=== PATIENT | male | born 1965 | race Two or more races ===

== ENCOUNTER 2024-06-30 06:05 | Day surgery (SDC) | payer MEDICAID, SELFPAY ==
--- NOTE | 2024-06-26 07:00 | EKG_ITS ---
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
[2024-06-26 07:04] VITALS: BMI 41.1
[2024-06-26 08:55] LABS: Basophils % (Auto) 0 % (0-2.5); Eosinophils % (Auto) 0 % (0-10); Hemoglobin 15.6 g/dL (13.5-16.0); Immature Granulocytes % (Auto) 1 % (0-0); Immature Granulocytes Auto 0.06 Thou/mm3 (0.00-0.00); Lymphocytes # (Auto) 1.8 Thou/mm3 (1.0-4.8); Lymphocytes % (Auto) 27 % (10-50); Mean Corpuscular HGB Conc 32.5 g/dl (31.0-37.0); Mean Corpuscular Hemoglobin 30.5 pg (25.0-35.0); Mean Corpuscular Volume 94 fL (80-100); Monocytes # (Auto) 0.4 Thou/mm3 (0.0-0.8); Monocytes % (Auto) 6 % (0-12); Neutrophils # (Auto) 4.4 Thou/mm3 (1.8-7.7); Neutrophils % (Auto) 66 % (37-80); Nucleated Red Blood Cell % 0 /100 WBC (0); Platelet Count 246 Thou/mm3 (140-440); RDW Standard Deviation 46.5 fL (35.1-43.9); Red Blood Count 5.11 Miln/mm3 (4.50-5.90); White Blood Count 6.7 Thou/mm3 (3.8-10.6)
[2024-06-26 09:05] LABS: Alanine Aminotransferase 36 U/L (10-49); Albumin, Serum 4.4 gm/dL (3.5-5.0); Albumin/Globulin Ratio 2.1 (1.2-2.2); Alkaline Phosphatase 45 U/L (46-116); Anion Gap 9 (7-16); Aspartate Amino Transferase 18 U/L (0-34); BUN/Creatinine Ratio 16 Ratio (12-20); Bilirubin,Total 0.7 mg/dL (0.3-1.2); Blood Urea Nitrogen 14 mg/dL (9-23); Calcium 9.5 mg/dL (8.3-10.6); Calcium (Corrected) 9.5 mg/dL (8.5-10.1); Carbon Dioxide 27.4 mMol/L (20.0-31.0); Chloride 105 mMol/L (98-107); Creatinine (Component) 0.9 mg/dL (0.6-1.3); Estimated Creatinine Clearance 103.4 mL/min (>60); Globulin 2.1 gm/dL (2.3-3.5); Glucose 108 mg/dL (74-106); Osmolality,Calculated 282 (275-295); Potassium 4.4 mMol/L (3.4-5.1); Sodium 141 mMol/L (136-145); Total Protein 6.5 gm/dL (5.7-8.2); eGFR > 60 See Note
[2024-06-30] VITALS (16 sets, daily range): BP systolic 127–169; BP diastolic 80–104; PULSE 78–94; RESP 12–20; TEMP 36.4–36.6; O2SAT 92–96; BMI 41.5
--- NOTE | 2024-06-30 10:10 | SUR.PHASEI ---
pt received from OR in recovery bay 7. pt asleep but responds to voice, breathing unlabored on oxymask 8l, v/s stable. pt dressing to abd cdi. report received from Umberto RASMUSSEN and Onel VARGAS.
[2024-06-30] MEDS: fentaNYL CIT INJ 50 mCg/ML AMP 2ML IV ×3 (10:14→12:38)
--- NOTE | 2024-06-30 10:16 | ESOP_ITS ---
Date of Procedure 06/30/24 Pre Op Diagnosis Incarcerated incisional hernia Post Op Diagnosis Incarcerated incisional hernia Procedure Laparoscopic assisted repair of incarcerated incisional hernia with mesh Findings Patient was noted to have periumbilical incisional hernia with incarcerated omentum. He also had an additional incisional hernia that was above into the left of the umbilicus with incarcerated omentum Procedure Description Patient brought into the operating room in supine position. After administration of general orotracheal anesthesia, patient's abdomen prepped and draped in standard surgical manner. A 5 mm incision was made in left upper quadrant and Veress needle was inserted, pneumoperitoneum was obtained to 15 mm Hg. The Veress needle was removed and a 5 mm trocar was placed. Laparoscopic camera was inserted, under direct visualization a laparoscopic camera a 5 mm trocar placed in left lower quadrant and additional 5 mm trocar placed in right lower quadrant. The abdomen was inspected and patient was noted to have an incarcerated periumbilical incisional hernia with omentum being incarcerated within the hernia sac. The adhesions were divided with harmonic scalpel. The hernia sac was excised with harmonic scalpel and the omentum was reduced. He was noted to have an additional incisional hernia that was above into the left of the umbilicus. Similarly the hernia sac was divided with harmonic scalpel and the omentum was reduced. An approximately 3 cm incision was made above the incisional hernia that was above into the left of the umbilicus and dissection was deepened into soft tissue. The hernia sac was excised, the fascia was cleared and repaired with interrupted cgifas-ma-epant sutures using 0 Ethibond. The defect was approximately 3 cm in diameter. Patient was noted to have significant redundant skin above the umbilicus. The redundant skin was excised along with the hernia sac. The fascia was cleared and the hernia defect was approximately 4 cm in diameter. A 6 X8 elliptical shape proceed mesh was used to cover the defect. 2 tacking sutures using 0 Ethibond placed the 2 ends of the mesh and the mesh was placed inside the abdominal cavity through the hernia defect. The defect was closed with interrupted sutures using 0 Ethibond. The abdomen was once again insufflated. 2 tacking sutures of the 2 ends of the mesh were retrieved through the previously marked abdominal wall site. Sutures were tightened and the mesh was further secured into anterior abdominal wall with secure strap tacking device. The mesh was covering both defects with at least 2 cm circumferential margin. Hemostasis was adequate and satisfactory. Instruments and trocars removed, pneumoperitoneum was evacuated and the incisions closed with hernan. Instruments, needles and sponge counts were reported to be correct ?2 patient tolerated the procedure well. Patient was extubated, breathing spontaneously and without difficulty and was transferred to postanesthesia care in stable condition. Anesthesia GETA and local Pathology / specimen Other (Hernia sac) Estimated Blood Loss 10 Condition Stable Disposition PACU Surgeon Sariah Hastings MD Surgical Staff Operation Date: 06/30/24 08:30 Case Staff CENTRIFUGAL WAX MOLDER: Onel Verdugo RN First Assistant: Sarah Mendez
[2024-06-30] MEDS: ALBUTEROL/IPRATROPIUM (Duoneb) RT SOL 3 ML NEBU INH (10:36)
--- NOTE | 2024-06-30 11:56 | SUR.PHASEII ---
pt able to tolerate oral fluids without difficulty swallowing or nausea/vomiting.
--- NOTE | 2024-06-30 12:09 | SUR.PHASEII ---
1209: pt sitting in bed, VS stable, dressing to abdomen clean, dry, and intact with abdominal binder in place, report from Jorge RASMUSSEN
--- NOTE | 2024-06-30 12:30 | SUR.PHASEII ---
pt up to ambulate to help with passing gas, pt able to ambulate with assistance
--- NOTE | 2024-06-30 12:44 | SUR.PHASEII ---
pt resting with eyes closed, breathing unlabored, dressing to abdomen clean, dry, and intact with abdominal binder in place, report to Jorge RASMUSSEN
--- NOTE | 2024-06-30 14:00 | SUR.PHASEII ---
pt awake and alert, breathing unlabored on room air. v/s stable. pt dressing to abd cdi. pt able to ambulate to wheelchair with steady gait. d/c instructions given with friend in room using bus and sys integration senior manager Jhonatan Ordoñez, all questions answered. pt d/c via wheelchair with all belongings.
== END 2024-06-30 14:00 | disposition home or self-care (01) ==
PROVIDERS: Anesthesiology; PCP Family Medicine; Referring Provider Surgery; Visit Provider Surgery
PROC: 0WQF4ZZ Repair Abdominal Wall, Percutaneous Endoscopic Approach (ICD-10-PCS; CPT 49594; principal; 2024-06-30 08:30)
DX: K43.0 Incisional hernia with obstruction, without gangrene (principal); Z01.810 Encounter for preprocedural cardiovascular examination
CPT/HCPCS: 49594; 36415; 80053; 85025; 93005; A4217; A4649; A9270; C1781; J0131; J0690; J1100; J2250; J2371; J2405; J2704; J3010; J3490

== ENCOUNTER 2024-08-06 12:40 | Inpatient (IN) | payer MEDICAID, SELFPAY ==
[2024-08-06] VITALS (7 sets, daily range): BP systolic 136–175; BP diastolic 93–128; PULSE 66–80; RESP 17–20; TEMP 36.1–36.9; O2SAT 95–98; BMI 41.5
--- NOTE | 2024-08-06 12:56 | EKG_ITS ---
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
--- NOTE | 2024-08-06 12:57 | XR_ITS ---
Examination: CT abdomen with intravenous contrast CT pelvis with intravenous contrast 2-D coronal reconstructions 2-D sagittal reconstructions Date and time of exam:August 06, 2024 1555 hours Comparison April 03, 2023 INDICATIONS: Lower abdominal pain and distention today. CTDI: vol (mGy) 15.2 DLP: (mGycm) 984 Technique: Multiple axial sections of the abdomen and pelvis have been obtained. 64 slice high-resolution scanner used. 3 mm axial sections have been obtained, post intravenous injection 60 cc [id number] 2-D sagittal, coronal reconstructions obtained. Low dose protocols were performed. One or more of the following dose reduction techniques were used; automated exposure control, adjustment of the mA and/or KV according to patient size, use of iterative reconstruction technique. Findings: 8mm right lobe liver cyst Spleen is not enlarged No gallstones Fluid distended stomach No pancreatic or adrenal mass No renal or ureteral calculi Multiple fluid distended small bowel loops in the lower abdomen with localized weakening of the anterior abdominal wall No incarcerated bowel in the hernia defect Colonic diverticulosis, no diverticulitis Urinary bladder intact 4.2 cm transverse dimension prostate Significant osteopenia with moderate to advanced diffuse lumbar degenerative disc disease IMPRESSION: Small bowel obstruction pattern, consider Gastrografin small bowel series follow-up
--- NOTE | 2024-08-06 12:59 | EDNOTE_ITS ---
ED Abdominal Pain RME/HPI General Chief Complaint: Abdominal Pain Stated complaint: ABD PAIN S/P HERNIA REPAIR X1MO Time seen by provider: 08/06/24 12:51 Arrival date/time: 08/06/24 12:40 RME / HPI RME / HPI narrative: 58-year-old male patient with significant history of hypertension, recent hernia repair about a month ago, came in for evaluation regarding sudden onset of abdominal pain. Onset of symptoms since early this morning as sudden onset of abdominal pain, abdominal distention and vomiting x 2. Patient also complained of not feeling well. He had a small bowel movement this morning. Patient denies any fever. In the triage patient was noted to have elevated blood pressure also. Denies any chest pain. Hernia repair was done by Dr. Hastings. Related Data Home Medications ?Medication ?Instructions ?Recorded ?Confirmed atorvastatin 20 mg tablet 20 mg PO DAILY 06/26/2401/15 lisinopril 20 mg tablet 20 mg PO DAILY 06/26/2401/15 semaglutide 2 mg/dose (8 mg/3 mL) 2 mg subcut QWEEK 06/30/24 subcutaneous pen injector (Ozempic) Previous Rx's ?Medication ?Instructions ?Recorded docusate sodium 100 mg capsule 100 mg PO BID #40 caps 06/30/24 (Colace) hydrocodone 5 mg-acetaminophen 325 1 tab PO Q6H PRN pa in (scale score 06/30/24 mg tablet 7-10) #20 tabs ibuprofen 600 mg tablet 600 mg PO Q8H PRN pain (scal e 06/30/24 score 4-6) #15 tabs Allergies Allergy/AdvReac Type Severity Reaction Status Date / Time No Known Allergies Allergy Verified 08/06/24 12:43 Review of Systems Review of Systems Narrative Review of Systems: Review of system reviewed and within normal limits except mentioned in HPI ED Exam Narrative Physical exam: VITAL SIGNS: Reviewed. GENERAL APPEARANCE: Alert and interactive, follows commands, no acute distress, HEAD AND FACE: Non-traumatic. ENT: PERRL, pink conjunctivitis, eyelid no trauma, Mucous membrane moist. NECK: Supple, nontender, no nuchal rigidity. CHEST: No tenderness, no crepitus, no paradoxical movement, no retractions. LUNGS: Clear, well ventilated, symmetric, no rales, no wheezing, no ronchi, no stridor, good breath sounds bilaterally. HEART: Regular rate, regular rhythm, no murmur, no gallops. ABDOMEN: Hard, hypoactive bowel sounds, nondistended, no guarding, diffuse tenderness, no rebound, no masses, RECTAL: Deferred. GENITAL: Deferred. NEUROLOGICAL: Gross motor function intact sensory function intact, Appropriate for age. MUSCULOSKELETAL: low back nontender, full range of motion. EXTREMITIES: Nontender, full range of motion. SKIN: Color pink, dry, no rash, no lacerations, no abrasions, no contusions. LYMPHATICS: Deferred. Course Quality Measures none Orders Category Date Time Status COVID-19 Screening Questionnaire NOW Care 08/06/24 19:[address] Screening NOW Care 08/06/24 12:58 Active Decision to Admit X1 Care 08/06/24 19:19 Active EKG (ED ONLY) *Do not use* NOW Care 08/06/24 12:56 Completed Insert NG / OG tube NOW Care 08/06/24 17:51 Active NG / OG Tube to LIS NOW Care 08/06/24 17:51 Completed Consult to General Surgery Stat Cons 08/06/24 17:[address] abdomen pelvis w con Stat Exams 08/06/24 12:57 Completed EKG (ED Only) Stat Exams 08/06/24 12:56 Draft XR chest 1V post procedure Stat Exams 08/06/24 18:17 Completed Blood Culture (Lab) Stat Lab 08/06/24 18:58 Received CBC Stat Lab 08/06/24 13:14 Completed Comprehensive Metabolic Panel Stat Lab 08/06/24 13:14 Completed Lipase Stat Lab 08/06/24 13:14 Completed Partial Thromboplastin Time Stat Lab 08/06/24 13:14 Completed Prothrombin Time with INR Stat Lab 08/06/24 13:14 Completed UA, C/S IF [Urinalysis, C/S if Indicated] Stat Lab 08/06/24 13:53 Completed Cefoxitin [Mefoxin] 2 gm Med 08/06/24 17:54 Discontinued Sodium Chloride 0.9% (P) [Ns 0.9% (P)] 50 ml IV X1 HYDROmorphone INJ [Dilaudid Inj] Med 08/06/24 15:07 Discontinued 1 mg IVP X1 ONE HYDROmorphone INJ [Dilaudid Inj] Med 08/06/24 18:17 Discontinued 1 mg IVP X1 ONE Morphine Inj Med 08/06/24 12:57 Discontinued 4 mg IVP X1 ONE Ondansetron Inj [Zofran Inj] Med 08/06/24 12:57 Discontinued 4 mg IV X1 ONE Sodium Chloride 0.9% 1000 ml [Ns] 1,000 ml Med 08/06/24 17:52 Active IV 125 mls/hr hydrALAZINE INJ [Apresoline Inj] Med 08/06/24 12:58 Discontinued 1 mg IV X1 ONE Vital Signs Vital signs: Vital Signs Temperature 98.2 F 08/06/24 12:53 Pulse Rate 68 08/06/24 12:53 Respiratory Rate 20 08/06/24 12:53 Blood Pressure 169/127 H 08/06/24 12:53 Pulse Oximetry (%) 98 08/06/24 12:53 Oxygen Delivery Method Room Air 08/06/24 12:53 Abdominal Pain MDM MDM Narrative MDM Narrative:: 58-year-old male patient with significant history of hypertension, recent hernia repair about a month ago, came in for evaluation regarding sudden onset of abdominal pain. Onset of symptoms since early this morning as sudden onset of abdominal pain, abdominal distention and vomiting x 2. Patient also complained of not feeling well. He had a small bowel movement this morning. Patient denies any fever. In the triage patient was noted to have elevated blood pressure also. Denies any chest pain. Hernia repair was done by Dr. Hastings. Laboratory workup is significant for leukocytosis of 12.9 the rest of the labs unremarkable. Urinalysis no UTI. Chest x-ray came back unremarkable. EKG showed sinus rhythm ventricular rate of 74 bpm, no ST segment elevation depression noted. CT scan of the abdomen and pelvis showed small bowel obstruction. I consulted Dr. Hastings who told me to asked the hospitalist to call him once small bowel series showed obstruction. NG tube was placed and attached to low intermittent suction. Patient verbalized significant improvement of symptoms. Section fluid noted to be more than 500 cc. Patient was given IV fluids, morphine and Dilaudid and Zofran Patient data External records reviewed:: None Clinical information provided by:: none Social determinants that could affect healthcare access:: none Patient has the following chronic illnesses:: Hypertension How is presenting disease/condition affected by chronic disease/condition?: uneffected by Evaluation data The following diagnostics were reviewed and interpreted by me:: lab results, radiology exam(s) and EKG tracing(s) Lab and/or radiology exams considered but not ordered:: None Interpretation Summary: See results in [facility] Medications / Prescriptions Medications or Prescriptions considered but not ordered:: None Medication administrations:: Medication Administration History Sodium Chloride (Ns) 1,000 mls @ 125 mls/hr IV .Q8H ONE Stop: 08/07/24 01:51 Last Admin: 08/06/24 18:56 Dose: 125 mls/hr Documented By: BRYSON Discontinued Medications Hydralazine HCl (Hydralazine Inj 20 Mg/Ml Vial) 1 mg IV X1 ONE Stop: 08/06/24 12:59 Last Admin: 08/06/24 15:16 Dose: Not Given Documented By: BRYSON Non-Admin Reason: Cancelled by Provider Hydromorphone HCl (Hydromorphone Inj 2 Mg/Ml Vial) 1 mg IVP X1 ONE Stop: 08/06/24 15:08 Last Admin: 08/06/24 15:17 Dose: 1 mg Documented By: BRYSON Hydromorphone HCl (Hydromorphone Inj 2 Mg/Ml Vial) 1 mg IVP X1 ONE Stop: 08/06/24 18:18 Last Admin: 08/06/24 18:23 Dose: 1 mg Documented By: BRYSON Cefoxitin Sodium 2 gm/ Sodium (Chloride) 50 mls @ 100 mls/hr IV X1 ONE Stop: 08/06/24 18:23 Last Admin: 08/06/24 18:56 Dose: 100 mls/hr Documented By: Morphine Sulfate (Morphine Sulf Inj 10 Mg/Ml Vial) 4 mg IVP X1 ONE Stop: 08/06/24 12:58 Last Admin: 08/06/24 14:26 Dose: 4 mg Documented By: Ondansetron HCl (Ondansetron Inj 2 Mg/Ml Inj 2 Ml) 4 mg IV X1 ONE; Protocol Stop: 08/06/24 12:58 Last Admin: 08/06/24 14:26 Dose: 4 mg Documented By: Morphine Zofran cefoxitin, IV fluids, Dilaudid Consultations Consultation(s) initiated? (list below): Yes Consultation #1 (Physician, Specialty, Details): Spoke with Dr. Hastings, thank you Dr. Hastings Diagnosis Differential diagnosis abdominal pain: abdominal pain, constipation and small bowel obstruction Most likely diagnosis given after review of the tests above:: Small bowel obstruction Admission Indicated Admission indicated?: indicated Admission Request Was there a request for admission?: Yes Admission Attestation Admission request attestation: Discussed case with [Dr. Glover] from Hospitalist service regarding admission. Discussed patients ED course, exam findings, labs, and radiology results. The Hospitalist [agrees] to accept the patient for admission. Disposition Plan Disposition Plan: Admit Discharge Plan Plan Patient Disposition: Admit Acute Care w/in Hospital Prescriptions/Referrals Prescriptions/Med Rec: No Action lisinopril 20 mg tablet 20 mg PO DAILY Patient Comments: TOME ELSIE TABLETA TODOS LOS D Ozempic 2 mg/dose (8 mg/3 mL) pen injector 2 mg SUBCUT QWEEK Patient Comments: INJECT 2MG SUBCUTANEOUS WEEKLY 30 DAYS atorvastatin 20 mg tablet 20 mg PO DAILY Patient Comments: TOME 1 TABLETA POR V A ORAL TODOS LOS D ibuprofen 600 mg tablet 600 mg PO Q8H PRN (Reason: pain (scale score 4-6)) Qty: 15 0RF docusate sodium [Colace] 100 mg capsule 100 mg PO BID Qty: 40 0RF hydrocodone-acetaminophen 5-325 mg tablet 1 tab PO Q6H MDD 4 PRN (Reason: pain (scale score 7-10)) Qty: 20 0RF Referrals: Juan Alberto Castellanos PA-C [Primary Care Provider] - In 1 week Problem List Clinical Impression: Small bowel obstruction Patient/Caregiver Discharge Instructions Print Language: [place] Stand Alone Forms: [place] Award Info., Patient Portal Info Letter
[2024-08-06 13:48] LABS: Basophils # (Auto) 0.1 Thou/mm3 (0.0-0.2); Basophils % (Auto) 1 % (0-2.5); Eosinophils # (Auto) 0.1 Thou/mm3 (0.0-0.5); Eosinophils % (Auto) 1 % (0-10); Hematocrit 49.8 % (41.0-53.0); Hemoglobin 16.6 g/dL (13.5-16.0); Immature Granulocytes % (Auto) 0 % (0-0); Immature Granulocytes Auto 0.04 Thou/mm3 (0.00-0.00); Lymphocytes # (Auto) 3.4 Thou/mm3 (1.0-4.8); Lymphocytes % (Auto) 27 % (10-50); Mean Corpuscular HGB Conc 33.3 g/dl (31.0-37.0); Mean Corpuscular Hemoglobin 30.1 pg (25.0-35.0); Mean Corpuscular Volume 90 fL (80-100); Monocytes # (Auto) 0.8 Thou/mm3 (0.0-0.8); Monocytes % (Auto) 6 % (0-12); Neutrophils # (Auto) 8.5 Thou/mm3 (1.8-7.7); Neutrophils % (Auto) 66 % (37-80); Nucleated Red Blood Cell % 0 /100 WBC (0); Platelet Count 234 Thou/mm3 (140-440); RDW Standard Deviation 44.9 fL (35.1-43.9); Red Blood Count 5.51 Miln/mm3 (4.50-5.90); White Blood Count 12.9 Thou/mm3 (3.8-10.6)
[2024-08-06 14:03] LABS: Collection Type, Urine Clean Catch
[2024-08-06 14:03] LABS: Partial Thromboplastin Time 25.1 Seconds (22.0-36.0); Prothrombin Time 10.6 Seconds (9.0-12.2)
[2024-08-06 14:06] LABS: Alanine Aminotransferase 31 U/L (10-49); Albumin, Serum 4.5 gm/dL (3.5-5.0); Alkaline Phosphatase 58 U/L (46-116); Anion Gap 8 (7-16); Aspartate Amino Transferase 20 U/L (0-34); BUN/Creatinine Ratio 20 Ratio (12-20); Bilirubin,Total 0.6 mg/dL (0.3-1.2); Blood Urea Nitrogen 14 mg/dL (9-23); Calcium 9.8 mg/dL (8.3-10.6); Calcium (Corrected) 9.8 mg/dL (8.5-10.1); Carbon Dioxide 26.7 mMol/L (20.0-31.0); Chloride 106 mMol/L (98-107); Creatinine (Component) 0.7 mg/dL (0.6-1.3); Estimated Creatinine Clearance 133.8 mL/min (>60); Globulin 2.2 gm/dL (2.3-3.5); Glucose 101 mg/dL (74-106); Lipase 30 U/L (12-53); Osmolality,Calculated 281 (275-295); Sodium 141 mMol/L (136-145); Total Protein 6.7 gm/dL (5.7-8.2); eGFR > 60 See Note
[2024-08-06 14:25] LABS: Bilirubin,Urine Negative (Negative); Blood,Urine Negative (Negative); Clarity,Urine Clear (Clear/Hazy); Color,Urine Yellow (Lt Yel-Yel); Culture Indicated,Urine Not Indicated; Glucose, Urine Negative (Negative); Ketones,Urine Negative (Negative); Leukocyte Esterase,Urine Positive (Negative); Nitrite,Urine Negative (Negative); PH,Urine 7.5 (5.0-7.0); Protein,Urine Trace (Neg - Trace); RBC,Urine 1 /hpf (0-3); Specific Gravity,Urine 1.028 (1.001-1.035); Squamous Epithelial Cell,Urine 2 /hpf (0-5); Urobilinogen,Urine Negative mg/dL (0.0-1.0); WBC,Urine 3 /hpf (0-5)
[2024-08-06] MEDS: MORPHINE SULF INJ 10 MG/ML VIAL 4 MG IVP (14:26)
[2024-08-06] MEDS: ONDANSETRON INJ 2 MG/ML INJ 2 ML 4 MG IV (14:26)
[2024-08-06] MEDS: HYDROmorphone INJ 2 MG/ML VIAL 1 MG IVP ×2 (15:17→18:23)
--- NOTE | 2024-08-06 18:17 | XR_ITS ---
Examination: AP chest single view TECHNIQUE: AP portable sitting chest single view Exam date and time: August 06, 2024 1828 hours INDICATIONS: Post orogastric tube placement FINDINGS: Orogastric tube coiled in the stomach satisfactory position Air distended stomach No free air IMPRESSION: Orogastric tube in stomach satisfactory position
[2024-08-06] MEDS: SODIUM CHLORIDE 0.9% 1000 ML 1,000 ML 125 ML IV (18:56)
[2024-08-06] MEDS: CEFOXITIN 2 GM in SODIUM CHLORIDE 0.9% (P) 50 ML IV (18:56)
--- NOTE | 2024-08-06 20:54 | ESHP_ITS ---
Documentation for date of: 08/06/24 [facility] History of Present Illness Chief complaint: Abdominal pain History of present illness: Mr. Ann is a 58-year-old Malian-speaking male with past medical history of umbilical hernia status post repair, hypertension and hyperlipidemia who presented to [facility] on 08/06/2024 from home with a chief complaint of abdominal pain. Patient reported sudden onset abdominal pain, sharp with abdominal distention which started about 24 hours ago, patient also reported 2 episodes of emesis, nonbloody. He complained that he does not feel well. Patient does report having small bowel movement earlier this morning. Patient reported that he had a hernia repair done by Dr. Hastings recently. On workup in ED patient CT abdomen pelvis showed small bowel obstruction, general surgery was consulted recommended NG tube to low intermittent suctioning and small bowel series in morning. ED Course: ED Vitals: On presentation in ED BP 169/127, P 68, respiratory rate 20, temp 98.2, O2 sat 98 on room air ED Labs: On presentation in ED WBC 12.9, hemoglobin 16.6, neutrophil 8.5, globulin 2.2. UA significant for trace protein, positive leukocyte esterase none bacteria. ED Imaging: CT abdomen pelvis in ED shows small bowel obstruction pattern, consider Gastrografin small bowel series follow-up chest x-ray post NG tube placement significant for orogastric tube in stomach satisfactory position. EKG shows sinus rhythm, QTc 416 ED Treatment:Patient was given morphine 4 mg x 1, Zofran 4 mg x 1, hydromorphone 1 mg x 2, cefoxitin x 1 in ED and was started on sodium chloride 125 cc/h Review of Systems Review of Systems Narrative Review of Systems: ROS: -CONSTITUTIONAL: Denies weight loss, fever and chills. -HEENT: Denies changes in vision and hearing. -RESPIRATORY: Denies SOB and cough. -CV: Denies palpitations and Chest Pain. -GI: Positive for abdominal pain, nausea, vomiting, denies constipation and diarrhea. -: Denies dysuria and urinary frequency. -MSK: Denies myalgia and joint pain. -SKIN: Denies rash and pruritus. -NEUROLOGICAL: Denies headache and syncope. -PSYCHIATRIC: Denies recent changes in mood. Denies anxiety and depression. Past Medical History Past Medical History Comments PMH COMMENT: PMH: Positive for umbilical hernia status post repair, hypertension and hyperlipidemia PSHx: Exploratory laparotomy, closure of the perforation the sigmoid colon, incidental appendectomy (2021) Laparoscopic assisted repair of incarcerated incisional hernia with mesh (06/30/2024) Allergies: No known allergies Social history: -Smoking: Denies -Alcohol Use: Denies -Illicit Drug Use: Denies Family History: Denies pertinent family history Exam Vital Signs Temp Pulse Resp BP Pulse Ox O2 Del Method 98.4 F 80 17 136/93 H 97 Room Air 08/06/24 16:21 08/06/24 18:44 08/06/24 18:44 08/06/24 18:44 08/06/24 18:44 08/06/24 18:44 Narrative Exam Physical Exam General: Awake and in no acute distress. Conversational and non-toxic appearing. HEENT: Normocephalic, atraumatic, mucous membranes moist. NG tube noted. Heart: Regular rate and rhythm, no murmurs. Lungs: Clear to auscultation with no wheezing or crackles. Abdomen: Hard, distended, mild diffuse tenderness, positive bowel sounds. Neurologic: Alert and oriented x3, no gross neurological deficit, and patient able to move all 4 extremities. Extremities: No edema. Skin: No rash or ecchymoses. Results: Labs 08/06/24 13:14 08/06/24 13:14 Labs: Short CBC 08/06/24 Range/Units 13:14 WBC 12.9 H (3.8-10.6) Thou/mm3 Hgb 16.6 H (13.5-16.0) g/dL Hct 49.8 (41.0-53.0) % Plt Count 234 (140-440) Thou/mm3 BMP 08/06/24 13:14 Sodium 141 Potassium 4.0 Chloride 106 Carbon Dioxide 26.7 BUN 14 Creatinine 0.7 Glucose 101 Calcium 9.8 Liver Function 08/06/24 Range/Units 13:14 Total Bilirubin 0.6 (0.3-1.2) mg/dL AST 20 (0-34) U/L ALT 31 (10-49) U/L Alkaline Phosphatase 58 (46-116) U/L Albumin 4.5 (3.5-5.0) gm/dL Urine 08/06/24 Range/Units 13:53 Urine Color Yellow (Lt Yel-Yel) Urine Clarity Clear (Clear/Hazy) Urine pH 7.5 H (5.0-7.0) Ur Specific [place] 1.028 (1.001-1.035) Urine Protein Trace (Neg - Trace) Urine Glucose (UA) Negative (Negative) Quality Measures Quality Measures none Medications Home Medications and Allergies Home Medications ?Medication ?Instructions ?Recorded ?Confirmed ?Type atorvastatin 20 mg tablet 20 mg PO DAILY 06/26/2401/15 History lisinopril 20 mg tablet 20 mg PO DAILY 06/26/2401/15 History semaglutide 2 mg/dose (8 mg/3 mL) 2 mg subcut QWEEK 06/30/24 History subcutaneous pen injector (Ozempic) Allergies Allergy/AdvReac Type Severity Reaction Status Date / Time No Known Allergies Allergy Verified 08/06/24 12:43 Visit Medications Acetaminophen (Acetaminophen 325 Mg Tablet) 650 mg PO Q6H PRN PRN Reason: Pain 1-3 (Mild & Fever >101.3 Stop: 09/05/24 20:44 Heparin Sodium (Porcine) (Heparin Sod Inj 5000 Unit/Ml Vial) 5,000 unit SC Q12H PAPI Stop: 08/21/24 08:59 Hydralazine HCl (Hydralazine Inj 20 Mg/Ml Vial) 10 mg IVP Q6H PRN PRN Reason: SBP > 180, DBP > 100 Stop: 09/05/24 20:49 Sodium Chloride (Ns) 1,000 mls @ 125 mls/hr IV .Q8H ONE Stop: 08/07/24 01:51 Last Admin: 08/06/24 18:56 Dose: 125 mls/hr Ondansetron HCl (Ondansetron Inj 2 Mg/Ml Inj 2 Ml) 4 mg IV Q6H PRN; Protocol PRN Reason: NAUSEA OR VOMITING Stop: 09/05/24 20:44 Discontinued Medications Hydralazine HCl (Hydralazine Inj 20 Mg/Ml Vial) 1 mg IV X1 ONE Stop: 08/06/24 12:59 Last Admin: 08/06/24 15:16 Dose: Not Given Hydralazine HCl (Hydralazine Inj 20 Mg/Ml Vial) 10 mg IVP Q6H PRN PRN Reason: SBP > 180, DBP > 100 Stop: 09/05/24 20:49 Hydromorphone HCl (Hydromorphone Inj 2 Mg/Ml Vial) 1 mg IVP X1 ONE Stop: 08/06/24 15:08 Last Admin: 08/06/24 15:17 Dose: 1 mg Hydromorphone HCl (Hydromorphone Inj 2 Mg/Ml Vial) 1 mg IVP X1 ONE Stop: 08/06/24 18:18 Last Admin: 08/06/24 18:23 Dose: 1 mg Cefoxitin Sodium 2 gm/ Sodium (Chloride) 50 mls @ 100 mls/hr IV X1 ONE Stop: 08/06/24 18:23 Last Admin: 08/06/24 18:56 Dose: 100 mls/hr Morphine Sulfate (Morphine Sulf Inj 10 Mg/Ml Vial) 4 mg IVP X1 ONE Stop: 08/06/24 12:58 Last Admin: 08/06/24 14:26 Dose: 4 mg Ondansetron HCl (Ondansetron Inj 2 Mg/Ml Inj 2 Ml) 4 mg IV X1 ONE; Protocol Stop: 08/06/24 12:58 Last Admin: 08/06/24 14:26 Dose: 4 mg Assessment & Plan Plan Assessment and Plan: Summary: Mr. Ann is a 58-year-old Malian-speaking male with past medical history of umbilical hernia status post repair, hypertension and hyperlipidemia who presented to [facility] on 08/06/2024 from home with a chief complaint of abdominal pain. Patient admitted for small bowel obstruction management. #Small bowel obstruction #Status post Laparoscopic assisted repair of incarcerated incisional hernia with mesh (06/30/2024) Patient came in for distended abdomen, abdominal pain, nausea and vomiting. Patient had recent surgery with Dr. Hastings on June 30. CT abdomen pelvis in ED shows suspected SBO. NG tube was placed in ED, about 500 cc suctioned out. General surgery was consulted in ED. Plan: -NG tube to low-intermittent suctioning -Zofran as needed for nausea/vomiting -IV maintenance fluids -Small bowel series with Gastrografin in a.m. -General Surgery consulted, appreciate recommendations #Leukocytosis, reactive WBC count 12.9 on admission, patient was given cefoxitin in ED, lactate normal. -Will continue to monitor for now #Hypertension #Hyperlipidemia Pending med rec -Hydralazine as needed DVT prophylaxis: Heparin every 12 hours GI prophylaxis: IV Protonix daily Diet: N.p.o. Lines: Peripheral IV Code status: Full code Case discussed with Attending Dr. Frank. Sourav Glover PGY1 Internal medicine Disclaimer: This note was dictated by speech recognition. Minor errors in solar applications development engineer may be present due to voice recognition software. Attending Provider Attestation/Addendum 58-year-old Malian-speaking male patient who had recent hernia surgery was seen in the ER complaining of severe worsening abdominal pain associated with abdominal distention, nausea and vomiting Patient was diagnosed with small bowel obstruction. NG tube was inserted. The patient continues to have pain in the ER. Check magnesium and phosphorus level. Continue NG tube, continue IV fluids, correct electrolyte abnormalities. Surgical evaluation requested.
--- NOTE | 2024-08-06 22:27 | PC.NURSE ---
Upon arriving to unit. Patient was brought to the unit via gurney from ER. Patient mentioned to nurse (Franklin) that he needs to use the restroom to urinate. Was told that we will give him a urnial. Patient was fine with the urinal. Patient then mentioned to nurse that he can walk and if he could use the toilet. Patient's nurse and MARKETING SUMMER INTERN monitored patient has he walked to the restroom with his cane. Patient showed no signs of distress or any mentioning of pain when ambulating to the restroom from bed. Nurse observed a steady gate. Patient also had a NG tube inserted from the ER.
[2024-08-07] VITALS (9 sets, daily range): BP systolic 98–176; BP diastolic 54–106; PULSE 71–113; RESP 16–95; TEMP 36.1–36.6; O2SAT 91–95
--- NOTE | 2024-08-07 | XR_ITS ---
Examination: Abdomen AP single view Technique: AP portable supine abdomen, single view Exam date and time: August 07, 2024 1828 hrs. Indications: 18 hour film post post small bowel series today, abdominal pain and distention Findings: Contrast is diluted into the bowel There does appear to be mild contrast in the colon Impression: Likely incomplete small bowel obstruction Recommend follow-up films 10:00 PM and 7:00 AM tomorrow
--- NOTE | 2024-08-07 | XR_ITS ---
Examination: Abdomen AP single view Technique: AP portable supine abdomen, single view Exam date and time: August 07, 2024 2159 hrs. Indications ;Abdominal pain and distention this week. Findings: Findings: Contrast is present in the colon on this study Impression: Findings most consistent with incomplete small bowel obstruction One additional follow-up abdomen film at 7:00 AM recommended
--- NOTE | 2024-08-07 | XR_ITS ---
Examination: Abdomen AP single view Technique: AP portable supine abdomen, single view Exam date and time: August 07, 2024 1432 hours INDICATIONS: Abdominal distention this week, forearm delayed film post small bowel series FINDINGS: Contrast in dilated small bowel loops Motion of the contrast remains in the stomach IMPRESSION: Mildly dilated small bowel loops Multiple additional delayed films will be obtained
--- NOTE | 2024-08-07 | XR_ITS ---
Examination: Abdomen AP single view Technique: AP portable supine abdomen, single view Exam date and time: August 07, 2024 1627 hours INDICATIONS: Abdominal distention and pain this week, 6 hour delayed film post small bowel series today. FINDINGS: Contrast in small bowel loops IMPRESSION: Small bowel obstruction pattern Multiple additional delayed films will be obtained
[2024-08-07] MEDS: HYDROmorphone INJ 2 MG/ML VIAL 0.25 MG IVP ×2 (01:29→08:52)
[2024-08-07] MEDS: ONDANSETRON INJ 2 MG/ML INJ 2 ML 4 MG IV ×3 (01:39→14:09)
--- NOTE | 2024-08-07 01:40 | PC.NURSE ---
Noticed patient's abdomen increased in size and contacted MD. Dr. Machuca. On assessment, nurse noticed that the patient's lower abdomen region felt more firm that it did at time of admission. Patient was given Dilaudid for pain and zofran for nausea.
--- NOTE | 2024-08-07 02:02 | XR_ITS ---
Examination: AP chest single view Technique: AP portable upright chest single view Exam date and time: August 07, 2024 0211 hrs. Indications: Vomiting today. Findings: Orogastric tube in the stomach although proximal Mild enlargement cardiac contour Normal heart size Impression: Advance the orogastric tube 4 cm
--- NOTE | 2024-08-07 02:02 | XR_ITS ---
Examination: Abdomen AP single view Technique: AP portable supine abdomen, single view Exam date and time: August 07, 2024 0212 hours INDICATIONS: Onset abdominal pain today. FINDINGS: Moderate to large amounts of stool throughout the colon No obstruction No free air IMPRESSION: Moderate to large amounts of stool throughout the colon
[2024-08-07] MEDS: RINGERS LACTATED 1000 ML 1,000 ML 70 ML IV (05:18)
[2024-08-07 05:53] LABS: Basophils % (Auto) 0 % (0-2.5); Eosinophils # (Auto) 0.2 Thou/mm3 (0.0-0.5); Eosinophils % (Auto) 1 % (0-10); Hematocrit 50.1 % (41.0-53.0); Hemoglobin 16.6 g/dL (13.5-16.0); Immature Granulocytes % (Auto) 0 % (0-0); Immature Granulocytes Auto 0.05 Thou/mm3 (0.00-0.00); Lymphocytes # (Auto) 1.9 Thou/mm3 (1.0-4.8); Lymphocytes % (Auto) 17 % (10-50); Mean Corpuscular HGB Conc 33.1 g/dl (31.0-37.0); Mean Corpuscular Hemoglobin 30.6 pg (25.0-35.0); Mean Corpuscular Volume 92 fL (80-100); Monocytes # (Auto) 0.9 Thou/mm3 (0.0-0.8); Monocytes % (Auto) 8 % (0-12); Neutrophils # (Auto) 8.2 Thou/mm3 (1.8-7.7); Neutrophils % (Auto) 73 % (37-80); Nucleated Red Blood Cell % 0 /100 WBC (0); Platelet Count 238 Thou/mm3 (140-440); RDW Standard Deviation 46.5 fL (35.1-43.9); Red Blood Count 5.43 Miln/mm3 (4.50-5.90); White Blood Count 11.2 Thou/mm3 (3.8-10.6)
--- NOTE | 2024-08-07 06:00 | XR_ITS ---
Examination: Small bowel series with 5 abdomen films Exam date and time: August 07, 2024 1022 hours INDICATIONS: Abdominal pain and distention this week, dilated small bowel loops on CT abdomen pelvis August 06, 2024 TECHNIQUE AND FINDINGS: Fur Stretcher AP supine abdomen single view Patient received 120 cc Gastrografin with immediate, 30 minute, 1 hour, TR films obtained Multiple contrast distended small bowel loops noted IMPRESSION: Multiple contrast distended small bowel loops noted Follow-up films will be obtained
[2024-08-07 06:40] LABS: Alanine Aminotransferase 15 U/L (10-49); Albumin, Serum 4.1 gm/dL (3.5-5.0); Albumin/Globulin Ratio 2.1 (1.2-2.2); Alkaline Phosphatase 55 U/L (46-116); Anion Gap 7 (7-16); Aspartate Amino Transferase 19 U/L (0-34); BUN/Creatinine Ratio 16 Ratio (12-20); Bilirubin,Total 0.9 mg/dL (0.3-1.2); Blood Urea Nitrogen 14 mg/dL (9-23); Calcium 9.4 mg/dL (8.3-10.6); Calcium (Corrected) 9.4 mg/dL (8.5-10.1); Carbon Dioxide 26.8 mMol/L (20.0-31.0); Cardiac Risk Estimate 3.3 RATIO (4.0-6.7); Chloride 104 mMol/L (98-107); Cholesterol 147 mg/dL (132-200); Creatinine (Component) 0.9 mg/dL (0.6-1.3); Estimated Creatinine Clearance 104.1 mL/min (>60); Free T4 (Free Thyroxine) 1.57 ng/dL (0.89-1.76); Glucose 94 mg/dL (74-106); HDL Cholesterol 44 mg/dL (40-60); LDL Cholesterol,Calculated 75 mg/dL (0-130); Osmolality,Calculated 276 (275-295); Phosphorous 4.5 mg/dL (2.4-5.1); Potassium 4.1 mMol/L (3.4-5.1); Sodium 138 mMol/L (136-145); Thyroid Stimulating Hormone 6.91 uIU/mL (0.55-4.78); Total Protein 6.1 gm/dL (5.7-8.2); Triglycerides 141 mg/dL (30-150); eGFR > 60 See Note
[2024-08-07 06:49] LABS: Glucose Estimated Average 120 mg/dL (80-131); Hemoglobin A1C 5.8 % Hgb (4.8-6.0)
[2024-08-07] MEDS: HEPARIN SOD INJ 5000 UNIT/ML VIAL SC ×2 (08:53→21:38)
--- NOTE | 2024-08-07 10:31 | PC.SS ---
Patient is a Maltese speaking male. asl interpreter present. He is from home. Patient resides at home with his sister. Patient is independent with ADL's. No DME. Admitted for SBO. Patient is still being worked up. Surgery consult ordered. Patient plans on returning home. Patient verbalized he would prefer his friend, Yvette, as his alt medical decision maker. Family to transport. PCP: [facility] [place]. Pharmacy: [facility]
--- NOTE | 2024-08-07 13:30 | PC.NURSE ---
AT BEDSIDE, GAVE ORDER TO HAD PT PLACED BACK ON SUCTION COTINUOUS LOW, WILL CARRY OUT ORDER
[2024-08-07] MEDS: HYDROmorphone INJ 2 MG/ML VIAL 1 MG IVP ×2 (14:02→18:34)
--- NOTE | 2024-08-07 14:41 | PD.SURCONS ---
HPI Consult details Consult date: 08/07/24 Reason for consultation narrative: Small bowel obstruction History of present illness: 58-year-old obese male with history of hypertension, diabetes and hyperlipidemia had underwent laparoscopic assisted incisional hernia repair with mesh about 5 weeks ago. He did well postoperatively. Since yesterday he started developing abdominal pain with distention associated with nausea and vomiting. A CT scan was obtained that revealed dilated loops of small bowel concerning for small bowel obstruction. An NG tube was placed and patient was admitted for further management. His NG tube has been clamped to obtain small bowel series, however today patient has had recurrent abdominal distention with nausea. Meds Home Medications and Allergies Home Medications ?Medication ?Instructions ?Recorded ?Confirmed ?Type atorvastatin 20 mg tablet 20 mg PO DAILY 06/26/24 08/07/24 History lisinopril 20 mg tablet 20 mg PO DAILY 06/26/24 08/07/24 History semaglutide 2 mg/dose (8 mg/3 mL) 2 mg subcut QWEEK 06/26/24 08/07/24 History subcutaneous pen injector (Ozempic) Allergies Allergy/AdvReac Type Severity Reaction Status Date / Time No Known Allergies Allergy Verified 08/06/24 12:43 Exam Vital Signs Temp Pulse Resp BP Pulse Ox O2 Del Method 97.1 F 89 18 155/88 H 91 L Room Air 08/07/24 12:00 08/07/24 12:00 08/07/24 12:00 08/07/24 12:00 08/07/24 12:00 08/07/24 04:00 Constitutional Constitutional: no acute distress Routine Abdominal Exam Comments: Abdomen is soft but distended. He has hypoactive bowel sounds. His incisions are clean, dry and intact. No evidence of recurrent hernia at this time Assessment & Plan Additional Assessment Additional comments: Small bowel obstruction secondary to adhesions from previous operations Plan Since patient is felt nauseated, will place his NG tube back to suction. Patient is advised to increase ambulation. Will obtain small bowel series
--- NOTE | 2024-08-07 16:01 | ESPR_ITS ---
<Statement entered by Ignacio Maddox MD - 08/08/24 15:38> Senior Resident Attestation: I supervised/discussed management plan with education intern physician Dr. Burger, and was involved in the care of this patient. I personally saw and examined the patient and discussed the assessment and plan with the entire medicine team, including my attending. I agree with the assessment and plan as documented. Patient's care was discussed with attending physician, Dr. Washington. Ignacio Maddox MD PGY-2. Documentation for date of: 08/07/24 Subjective Subjective Interval history: Patient seen at bedside. No acute overnight events. He is a 58-year-old male with a past medical history of umbilical hernia s/p repair, hypertension and hyperlipidemia presented to the ED on 08/06/2024 with abdominal pain, nausea and vomiting. CT abdomen showed small bowel obstruction and GI was consulted. Patient currently has an NG tube in situ and scheduled for small bowel series, however continues to remain distended. General surgeon Dr. Hastings evaluated the patient and will place NG tube back to suction and possible small bowel series after. Exam Vital Signs Temp Pulse Resp BP Pulse Ox O2 Del Method 97.1 F 89 18 155/88 H 91 L Room Air 08/07/24 12:00 08/07/24 12:00 08/07/24 12:00 08/07/24 12:00 08/07/24 12:08/07/24 04:00 Narrative Exam GENERAL: AAOX3, uncomfortable NEURO: FOOD BEVERAGE SERVER grossly intact, moves extremities x4 HEENT: Moist mucosa. Eyes open, symmetrical, & clear CARDIO: No chest pain on palpation. Heart RRR, no obvious murmurs PULM: No noted coughing/dyspnea. Lungs CTA B/L GI: Abdomen firm, distended, tender to palpation. Hypoactive bowel sounds. NG tube in situ with low suction. URO/MIDDLE SCHOOL LIBRARIAN:: No further abnormalities noted. SKIN/MSK/EXT: No wounds/rashes/edema/amputations, no pain on palpation. Pedal pulses present B/L Objective Labs 08/07/24 04:55 08/07/24 04:55 Labs: Laboratory Results - last 24 hr 08/06/24 08/07/24 23:34 04:55 WBC 11.2 H RBC 5.43 Hgb 16.6 H Hct 50.1 MCV 92 MCH 30.6 MCHC 33.1 RDW Std Deviation 46.5 H Plt Count 238 Neut % (Auto) 73 Lymph % (Auto) 17 [place] % (Auto) 8 Eos % (Auto) 1 Baso % (Auto) 0 Neut # (Auto) 8.2 H Lymph # (Auto) 1.9 [place] # (Auto) 0.9 H Eos # (Auto) 0.2 Baso # (Auto) 0.0 Immature Gran # (Auto) 0.05 H Absolute Nucleated RBC 0.00 Immature Gran % 0 Nucleated RBC % 0 Sodium 138 Potassium 4.1 Chloride 104 Carbon Dioxide 26.8 Anion Gap 7 BUN 14 Creatinine 0.9 Estim Creat Clear Calc 104.1 eGFR > 60 BUN/Creatinine Ratio [address] Glu mg/dL 120 Hemoglobin A1c 5.8 Calculated Osmolality 276 Lactic Acid 1.0 Calcium 9.4 Corrected Calcium 9.4 Phosphorus 4.5 Magnesium 2.0 Total Bilirubin 0.9 AST 19 ALT 15 Alkaline Phosphatase 55 Total Protein 6.1 Albumin 4.1 Globulin 2.0 L Albumin/Globulin Ratio 2.1 Triglycerides 141 Cholesterol 147 LDL Cholesterol, Calc 75 HDL Cholesterol 44 Cholesterol/HDL Ratio 3.3 L TSH 6.91 H Free T4 1.57 Quality Measures Quality Measures none Assessment & Plan Assessment Current Active Medications: Generic Name Dose Route Start Last Admin Trade Name Freq PRN Reason Stop Dose Admin Acetaminophen 650 mg 08/06/24 20:45 Acetaminophen 325 Mg Tablet PO 09/05/24 20:44 Q6H PRN Pain 1-3 (Mild & Fever >101.3 Heparin Sodium (Porcine) 5,000 unit 08/07/24 09:00 08/07/24 08:53 Heparin Sod Inj 5000 Unit/Ml Vial SC 08/21/24 08:59 5,000 unit Q12H PAPI Administration Hydralazine HCl 10 mg 08/06/24 20:51 Hydralazine Inj 20 Mg/Ml Vial IVP 09/05/24 20:49 Q6H PRN SBP > 180, DBP > 100 Hydromorphone HCl 1 mg 08/07/24 13:28 08/07/24 14:02 Hydromorphone Inj 2 Mg/Ml Vial IVP 08/12/24 13:27 1 mg Q4HR PRN Administration PAIN SCALE 7-10 (Severe Lactated Ringer's 1,000 mls @ 70 mls/hr 08/07/24 04:31 08/07/24 05:18 Lactated Ringers IV 08/07/24 18:48 70 mls/hr .[id number] PAPI Administration Morphine Sulfate 2 mg 08/07/24 13:28 Morphine Sulf Inj 10 Mg/Ml Vial IV 08/12/24 13:27 Q4HR PRN Pain Scale 4-6 (Moderate Ondansetron HCl 4 mg 08/06/24 20:45 08/07/24 08:56 Ondansetron Inj 2 Mg/Ml Inj 2 Ml IV 09/05/24 20:44 4 mg Q6H PRN Administration NAUSEA OR VOMITING Protocol Plan Summary: The patient is a 58-year-old Latvian-speaking male with past medical history of umbilical hernia status post repair, hypertension and hyperlipidemia who presented to [facility] on 08/06/2024 from home with a chief complaint of abdominal pain. Patient admitted for small bowel obstruction management. #Small bowel obstruction #Status post Laparoscopic assisted repair of incarcerated incisional hernia with mesh (06/30/2024) Patient came in for distended abdomen, abdominal pain, nausea and vomiting. Patient had recent surgery with Dr. Hastings on June 30. CT abdomen pelvis in ED shows suspected SBO. NG tube was placed in ED, about 500 cc suctioned out. General surgery was consulted in ED. 08/07/2024- Patient continues to be in pain, despite pain medications. Small bowel series was started, he received 120 cc of Gastrografin. X-ray showed multiple contrast distended small bowel loops. As the patient continues to be distended and nauseated, Dr Hastings evaluated and recommended to unclamp the NG tube and continue suctioning. Follow-up with small bowel series Plan: -NG tube to low-intermittent suctioning -Zofran as needed for nausea/vomiting -Pain medications -IV maintenance fluids -Small bowel series with Gastrografin when tolerable -General Surgery consulted, appreciate recommendations #Leukocytosis, reactive WBC count 12.9 on admission, patient was given cefoxitin in ED, lactate normal. -Will continue to monitor for now 08/07/2024-WBC downtrending, 11.2 today. #Hypertension #Hyperlipidemia On lisinopril 20 mg daily. Will continue IV hydralazine as needed until patient can tolerate p.o. DVT prophylaxis: Heparin every 12 hours GI prophylaxis: IV Protonix daily Diet: N.p.o. Lines: Peripheral IV Code status: Full code Case was discussed with Dr Maddox PGY-2 and attending physician, Dr Felix Burger MD PGY-1 Disclaimer: This note was dictated by speech recognition. Minor errors in doctor of naturopathic medicine may be present due to voice recognition software.
[2024-08-08] VITALS (11 sets, daily range): BP systolic 112–137; BP diastolic 76–92; PULSE 65–114; RESP 14–92; TEMP 36.4–36.7; O2SAT 90–91
--- NOTE | 2024-08-08 | XR_ITS ---
Examination: Abdomen AP single view Technique: AP portable supine abdomen, single view Exam date and time: August 08, 2024 0706 hrs. Indications: 20 hour delayed film post small bowel series., Abdominal pain and distention this week Findings: Contrast present in the stomach small bowel and significant contrast in the colon Impression: Negative for small bowel complete obstruction No further films are needed
[2024-08-08] MEDS: HYDROmorphone INJ 2 MG/ML VIAL 1 MG IVP ×3 (05:53→21:08)
[2024-08-08 06:23] LABS: Basophils % (Auto) 0 % (0-2.5); Eosinophils # (Auto) 0.2 Thou/mm3 (0.0-0.5); Eosinophils % (Auto) 2 % (0-10); Hematocrit 49.8 % (41.0-53.0); Hemoglobin 16.7 g/dL (13.5-16.0); Immature Granulocytes % (Auto) 1 % (0-0); Immature Granulocytes Auto 0.05 Thou/mm3 (0.00-0.00); Lymphocytes # (Auto) 1.7 Thou/mm3 (1.0-4.8); Lymphocytes % (Auto) 18 % (10-50); Mean Corpuscular HGB Conc 33.5 g/dl (31.0-37.0); Mean Corpuscular Hemoglobin 30.5 pg (25.0-35.0); Mean Corpuscular Volume 91 fL (80-100); Monocytes % (Auto) 10 % (0-12); Neutrophils # (Auto) 6.5 Thou/mm3 (1.8-7.7); Neutrophils % (Auto) 69 % (37-80); Nucleated Red Blood Cell % 0 /100 WBC (0); Platelet Count 235 Thou/mm3 (140-440); RDW Standard Deviation 46.1 fL (35.1-43.9); Red Blood Count 5.47 Miln/mm3 (4.50-5.90); White Blood Count 9.4 Thou/mm3 (3.8-10.6)
[2024-08-08 06:52] LABS: Alanine Aminotransferase 20 U/L (10-49); Albumin/Globulin Ratio 1.9 (1.2-2.2); Alkaline Phosphatase 54 U/L (46-116); Anion Gap 9 (7-16); Aspartate Amino Transferase 15 U/L (0-34); BUN/Creatinine Ratio 21 Ratio (12-20); Bilirubin,Total 1.2 mg/dL (0.3-1.2); Blood Urea Nitrogen 25 mg/dL (9-23); Calcium 9.5 mg/dL (8.3-10.6); Calcium (Corrected) 9.5 mg/dL (8.5-10.1); Carbon Dioxide 25.6 mMol/L (20.0-31.0); Chloride 105 mMol/L (98-107); Creatinine (Component) 1.2 mg/dL (0.6-1.3); Estimated Creatinine Clearance 78.1 mL/min (>60); Globulin 2.1 gm/dL (2.3-3.5); Glucose 114 mg/dL (74-106); Magnesium 2.4 mg/dL (1.6-2.6); Osmolality,Calculated 284 (275-295); Phosphorous 5.5 mg/dL (2.4-5.1); Potassium 3.9 mMol/L (3.4-5.1); Sodium 140 mMol/L (136-145); Total Protein 6.1 gm/dL (5.7-8.2); eGFR > 60 See Note
[2024-08-08] MEDS: HEPARIN SOD INJ 5000 UNIT/ML VIAL SC ×2 (08:27→20:56)
[2024-08-08] MEDS: ONDANSETRON INJ 2 MG/ML INJ 2 ML 4 MG IV (08:32)
[2024-08-08] MEDS: PANTOPRAZOLE INJ 40 MG VIAL IV ×2 (11:53→20:56)
--- NOTE | 2024-08-08 13:30 | ESPR_ITS ---
Documentation for date of: 08/08/24 Subjective Subjective Interval history: Patient seen at bedside. No acute overnight events. Clinically, patient is still complaining of abdominal pain with still has a lot of distention but abdomen is not as firm as it was a day prior. He is still yet to have any bowel movements or any passage of gas. Second part of x-ray series shows some contrast still in the stomach and small intestine with some in the colon. NG tube still in situ, suctioning. Surgeon on board, follow-up recommendations. Exam Vital Signs Temp Pulse Resp BP Pulse Ox O2 Del Method O2 Flow Rate 97.7 F 106 H 16 123/81 90 L Nasal Cannula 2 08/08/24 11:47 08/08/24 12:00 08/08/24 11:59 08/08/24 11:47 08/08/24 11:47 08/08/24 11:47 08/08/24 11:59 Narrative Exam GENERAL: AAOX3 NEURO: ADJUNCT PSYCHOLOGY INSTRUCTOR grossly intact, moves extremities x4 HEENT: Moist mucosa. Eyes open, symmetrical, & clear CARDIO: No chest pain on palpation. Heart RRR, no obvious murmurs PULM: No noted coughing/dyspnea. Lungs CTA B/L GI: Abdomen softer, still distended, tender to palpation. Hypoactive bowel sounds. NG tube in situ. URO/SALESPERSON FURS:: No further abnormalities noted. SKIN/MSK/EXT: No wounds/rashes/edema/amputations, no pain on palpation. Pedal pulses present B/L Objective Labs 08/08/24 05:20 08/08/24 05:20 Labs: Laboratory Results - last 24 hr 08/08/24 05:20 WBC 9.4 RBC 5.47 Hgb 16.7 H Hct 49.8 MCV 91 MCH 30.5 MCHC 33.5 RDW Std Deviation 46.1 H Plt Count 235 Neut % (Auto) 69 Lymph % (Auto) 18 [place] % (Auto) 10 Eos % (Auto) 2 Baso % (Auto) 0 Neut # (Auto) 6.5 Lymph # (Auto) 1.7 [place] # (Auto) 1.0 H Eos # (Auto) 0.2 Baso # (Auto) 0.0 Immature Gran # (Auto) 0.05 H Absolute Nucleated RBC 0.00 Immature Gran % 1 H Nucleated RBC % 0 Sodium 140 Potassium 3.9 Chloride 105 Carbon Dioxide 25.6 Anion Gap 9 BUN 25 H Creatinine 1.2 Estim Creat Clear Calc 78.1 eGFR > 60 BUN/Creatinine Ratio 21 H Glucose 114 H Calculated Osmolality 284 Calcium 9.5 Corrected Calcium 9.5 Phosphorus 5.5 H Magnesium 2.4 Total Bilirubin 1.2 AST 15 ALT 20 Alkaline Phosphatase 54 Total Protein 6.1 Albumin 4.0 Globulin 2.1 L Albumin/Globulin Ratio 1.9 Quality Measures Quality Measures none Assessment & Plan Assessment Current Active Medications: Generic Name Dose Route Start Last Admin Trade Name Freq PRN Reason Stop Dose Admin Acetaminophen 650 mg 08/06/24 20:45 Acetaminophen 325 Mg Tablet PO 09/05/24 20:44 Q6H PRN Pain 1-3 (Mild & Fever >101.3 Heparin Sodium (Porcine) 5,000 unit 08/07/24 09:00 08/08/24 08:27 Heparin Sod Inj 5000 Unit/Ml Vial SC 08/21/24 08:59 5,000 unit Q12H PAPI Administration Hydralazine HCl 10 mg 08/06/24 20:51 Hydralazine Inj 20 Mg/Ml Vial IVP 09/05/24 20:49 Q6H PRN SBP > 180, DBP > 100 Hydromorphone HCl 1 mg 08/07/24 13:28 08/08/24 05:53 Hydromorphone Inj 2 Mg/Ml Vial IVP 08/12/24 13:27 1 mg Q4HR PRN Administration PAIN SCALE 7-10 (Severe Morphine Sulfate 2 mg 08/07/24 13:28 Morphine Sulf Inj 10 Mg/Ml Vial IV 08/12/24 13:27 Q4HR PRN Pain Scale 4-6 (Moderate Ondansetron HCl 4 mg 08/06/24 20:45 08/08/24 08:32 Ondansetron Inj 2 Mg/Ml Inj 2 Ml IV 09/05/24 20:44 4 mg Q6H PRN Administration NAUSEA OR VOMITING Protocol Pantoprazole Sodium 40 mg 08/08/24 09:45 08/08/24 11:53 Pantoprazole Inj 40 Mg Vial IV 09/07/24 09:44 40 mg BID PAPI Administration Plan Summary: The patient is a 58-year-old Irish-speaking male with past medical history of umbilical hernia status post repair, hypertension and hyperlipidemia who presented to [facility] on 08/06/2024 from home with a chief complaint of abdominal pain. Patient admitted for small bowel obstruction management. #Small bowel obstruction #Status post Laparoscopic assisted repair of incarcerated incisional hernia with mesh (06/30/2024) Patient came in for distended abdomen, abdominal pain, nausea and vomiting. Patient had recent surgery with Dr. Hastings on June 30. CT abdomen pelvis in ED shows suspected SBO. NG tube was placed in ED, about 500 cc suctioned out. General surgery was consulted in ED. 08/08/2024-Clinically, patient is still complaining of abdominal pain with still has a lot of distention but abdomen is not as firm as it was a day prior. He is still yet to have any bowel movements or any passage of gas. Second part of x-ray series shows some contrast still in the stomach and small intestine with some in the colon. Plan: - Continue NG tube to low-intermittent suctioning -Zofran as needed for nausea/vomiting -Pain medications -IV maintenance fluids -General Surgery consulted, appreciate recommendations #Leukocytosis, reactive- resolved WBC count 12.9 on admission, patient was given cefoxitin in ED, lactate normal. -Will continue to monitor for now #Hypertension #Hyperlipidemia On lisinopril 20 mg daily. Will continue IV hydralazine as needed until patient can tolerate p.o. DVT prophylaxis: Heparin every 12 hours GI prophylaxis: IV Protonix daily Diet: N.p.o. Lines: Peripheral IV Code status: Full code Case was discussed with attending physician, Dr Felix Burger MD PGY-1 Disclaimer: This note was dictated by speech recognition. Minor errors in atomic fuel assembler may be present due to voice recognition software.
[2024-08-08] MEDS: bisacodyL 10 MG SUPP PR (13:58)
[2024-08-08] MEDS: LACTULOSE SYRUP 20 GM/30 ML UDC 30 GM NG (13:58)
[2024-08-08] MEDS: SODIUM CHLORIDE 0.9% 1000 ML 1,000 ML 100 ML IV (14:03)
--- NOTE | 2024-08-08 15:02 | ESPR_ITS ---
Documentation for date of: 08/08/24 Subjective Subjective Narrative: Patient is seen and examined. He continues to have abdominal pain, however improved since yesterday. His small bowel series did not show evidence of bowel obstruction Exam Vital Signs Temp Pulse Resp BP Pulse Ox O2 Del Method O2 Flow Rate 97.7 F 106 H 16 123/81 90 L Nasal Cannula 2 08/08/24 11:47 08/08/24 12:00 08/08/24 11:59 08/08/24 11:47 08/08/24 11:47 08/08/24 11:47 08/08/24 11:59 Constitutional Constitutional: no acute distress Routine Abdominal Exam Comments: Abdomen is soft but mildly distended. He has hypoactive bowel sounds, no evid ence of hernia at this time Assessment & Plan Assessment Additional comments: Small bowel obstruction, clinically improved. Small bowel series did not show evidence of bowel obstruction Plan Will clamp the NG tube, increase ambulation. Suppository was ordered
[2024-08-09] VITALS (9 sets, daily range): BP systolic 118–149; BP diastolic 75–94; PULSE 81–117; RESP 16–20; TEMP 36–36.9; O2SAT 88–95
[2024-08-09] MEDS: SODIUM CHLORIDE 0.9% 1000 ML 1,000 ML 75 ML IV (02:53)
[2024-08-09 05:48] LABS: Basophils % (Auto) 0 % (0-2.5); Eosinophils # (Auto) 0.1 Thou/mm3 (0.0-0.5); Eosinophils % (Auto) 1 % (0-10); Hematocrit 47.1 % (41.0-53.0); Hemoglobin 15.5 g/dL (13.5-16.0); Immature Granulocytes % (Auto) 0 % (0-0); Immature Granulocytes Auto 0.05 Thou/mm3 (0.00-0.00); Lymphocytes # (Auto) 0.7 Thou/mm3 (1.0-4.8); Lymphocytes % (Auto) 5 % (10-50); Mean Corpuscular HGB Conc 32.9 g/dl (31.0-37.0); Mean Corpuscular Hemoglobin 30.6 pg (25.0-35.0); Mean Corpuscular Volume 93 fL (80-100); Monocytes # (Auto) 1.4 Thou/mm3 (0.0-0.8); Monocytes % (Auto) 10 % (0-12); Neutrophils # (Auto) 12.4 Thou/mm3 (1.8-7.7); Neutrophils % (Auto) 85 % (37-80); Nucleated Red Blood Cell % 0 /100 WBC (0); Platelet Count 225 Thou/mm3 (140-440); RDW Standard Deviation 47.7 fL (35.1-43.9); Red Blood Count 5.06 Miln/mm3 (4.50-5.90); White Blood Count 14.6 Thou/mm3 (3.8-10.6)
[2024-08-09 06:24] LABS: Alanine Aminotransferase 24 U/L (10-49); Albumin, Serum 3.8 gm/dL (3.5-5.0); Albumin/Globulin Ratio 1.8 (1.2-2.2); Alkaline Phosphatase 59 U/L (46-116); Anion Gap 11 (7-16); Aspartate Amino Transferase 24 U/L (0-34); BUN/Creatinine Ratio 23 Ratio (12-20); Bilirubin,Total 1.5 mg/dL (0.3-1.2); Blood Urea Nitrogen 25 mg/dL (9-23); Calcium 8.8 mg/dL (8.3-10.6); Chloride 109 mMol/L (98-107); Creatinine (Component) 1.1 mg/dL (0.6-1.3); Estimated Creatinine Clearance 85.2 mL/min (>60); Globulin 2.1 gm/dL (2.3-3.5); Glucose 126 mg/dL (74-106); Magnesium 2.2 mg/dL (1.6-2.6); Osmolality,Calculated 296 (275-295); Phosphorous 1.7 mg/dL (2.4-5.1); Potassium 3.7 mMol/L (3.4-5.1); Sodium 146 mMol/L (136-145); Total Protein 5.9 gm/dL (5.7-8.2); eGFR > 60 See Note
[2024-08-09] MEDS: PANTOPRAZOLE INJ 40 MG VIAL IV ×2 (08:27→20:28)
[2024-08-09] MEDS: HEPARIN SOD INJ 5000 UNIT/ML VIAL SC ×2 (08:28→20:28)
[2024-08-09] MEDS: TAMSULOSIN HCL 0.4 MG CAPSULE PO (12:07)
[2024-08-09] MEDS: HYDROmorphone INJ 2 MG/ML VIAL 1 MG IVP (12:07)
--- NOTE | 2024-08-09 12:43 | PD.SURPROG ---
Documentation for date of: 08/09/24 Subjective Subjective Narrative: Patient is seen and examined. He is feeling better. He denies nausea or vomiting and he has had multiple bowel movements Exam Vital Signs Temp Pulse Resp BP Pulse Ox O2 Del Method O2 Flow Rate 97.6 F 90 18 118/75 93 L Nasal Cannula 3 08/09/24 08:00 08/09/24 11:57 08/09/24 08:00 08/09/24 08:00 08/09/24 08:00 08/09/24 08:00 08/09/24 06:46 Constitutional Constitutional: no acute distress Routine Abdominal Exam Comments: Abdomen is soft and mildly distended. He has active bowel sounds Assessment & Plan Assessment Additional comments: Small bowel obstruction improving. Plan DC NG tube and start patient on liquid diet. Continue to ambulate
[2024-08-09] MEDS: DOCUSATE SOD 100 MG CAPSULE PO ×2 (12:52→20:29)
--- NOTE | 2024-08-09 12:57 | ESPR_ITS ---
Documentation for date of: 08/09/24 Subjective Subjective Interval history: Patient seen at bedside. No acute overnight events. States that he is feeling better today, although still has heartburn, some abdominal pain. He also reports multiple bowel movements, as he received suppository and lactulose yesterday. Surgeon evaluated, recommends to DC NG tube and start on clear liquid diet, to be advanced as tolerated. Labs reviewed, uptrending WBC and patient is currently on 2 L of oxygen. 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 Eyes open, symmetrical, & clear CARDIO: No chest pain on palpation. Heart RRR, no obvious murmurs PULM: No noted coughing/dyspnea. Lungs CTA B/L. Nasal cannula in situ, 2 L GI: Abdomen soft, distended, mildly tender to palpation. Bowel sounds active. NG tube in situ URO/LINEN ROOM ATTENDANT:: No further abnormalities noted. SKIN/MSK/EXT: No wounds/rashes/edema/amputations, no pain on palpation. Pedal pulses present B/L Objective Labs 08/10/24 04:47 08/10/24 04:47 Labs: Laboratory Results - last 24 hr 08/09/24 04:42 WBC 14.6 H D RBC 5.06 Hgb 15.5 Hct 47.1 MCV 93 MCH 30.6 MCHC 32.9 RDW Std Deviation 47.7 H Plt Count 225 Neut % (Auto) 85 H Lymph % (Auto) 5 L [place] % (Auto) 10 Eos % (Auto) 1 Baso % (Auto) 0 Neut # (Auto) 12.4 H Lymph # (Auto) 0.7 L [place] # (Auto) 1.4 H Eos # (Auto) 0.1 Baso # (Auto) 0.0 Immature Gran # (Auto) 0.05 H Absolute Nucleated RBC 0.00 Immature Gran % 0 Nucleated RBC % 0 Sodium 146 H Potassium 3.7 Chloride 109 H Carbon Dioxide 26.0 Anion Gap 11 BUN 25 H Creatinine 1.1 Estim Creat Clear Calc 85.2 eGFR > 60 BUN/Creatinine Ratio 23 H Glucose 126 H Calculated Osmolality 296 H Calcium 8.8 Corrected Calcium 9.0 Phosphorus 1.7 L Magnesium 2.2 Total Bilirubin 1.5 H AST 24 ALT 24 Alkaline Phosphatase 59 Total Protein 5.9 Albumin 3.8 Globulin 2.1 L Albumin/Globulin Ratio 1.8 Quality Measures Quality Measures none Assessment & Plan Assessment Current Active Medications: Generic Name Dose Route Start Last Admin Trade Name Freq PRN Reason Stop Dose Admin Acetaminophen 650 mg 08/06/24 20:45 Acetaminophen 325 Mg Tablet PO 09/05/24 20:44 Q6H PRN Pain 1-3 (Mild & Fever >101.3 Docusate Sodium 100 mg 08/09/24 12:45 08/09/24 12:52 Docusate Sod 100 Mg Capsule PO 09/08/24 12:44 100 mg BID PAPI Administration Protocol Heparin Sodium (Porcine) 5,000 unit 08/07/24 09:00 08/09/24 08:28 Heparin Sod Inj 5000 Unit/Ml Vial SC 08/21/24 08:59 5,000 unit Q12H PAPI Administration Hydralazine HCl 10 mg 08/06/24 20:51 Hydralazine Inj 20 Mg/Ml Vial IVP 09/05/24 20:49 Q6H PRN SBP > 180, DBP > 100 Hydromorphone HCl 1 mg 08/07/24 13:28 08/09/24 12:07 Hydromorphone Inj 2 Mg/Ml Vial IVP 08/12/24 13:27 1 mg Q4HR PRN Administration PAIN SCALE 7-10 (Severe Sodium Chloride 1,000 mls @ 75 mls/hr 08/09/24 02:50 08/09/24 02:53 Ns IV 08/09/24 16:09 75 mls/hr .[id number] PAPI Administration Morphine Sulfate 2 mg 08/07/24 13:28 Morphine Sulf Inj 10 Mg/Ml Vial IV 08/12/24 13:27 Q4HR PRN Pain Scale 4-6 (Moderate Ondansetron HCl 4 mg 08/06/24 20:45 08/08/24 08:32 Ondansetron Inj 2 Mg/Ml Inj 2 Ml IV 09/05/24 20:44 4 mg Q6H PRN Administration NAUSEA OR VOMITING Protocol Pantoprazole Sodium 40 mg 08/08/24 09:45 08/09/24 08:27 Pantoprazole Inj 40 Mg Vial IV 09/07/24 09:44 40 mg BID PAPI Administration Tamsulosin HCl 0.4 mg 08/09/24 09:45 08/09/24 12:07 Tamsulosin Hcl 0.4 Mg Capsule PO 09/08/24 09:44 0.4 mg QDAY PAPI Administration Plan Summary: The patient is a 58-year-old Moroccan-speaking male with past medical history of umbilical hernia status post repair, hypertension and hyperlipidemia who presented to [facility] on 08/06/2024 from home with a chief complaint of abdominal pain. Patient admitted for small bowel obstruction management. #Small bowel obstruction- ruled out #Constipation #Status post Laparoscopic assisted repair of incarcerated incisional hernia with mesh (06/30/2024) Patient came in for distended abdomen, abdominal pain, nausea and vomiting. Patient had recent surgery with Dr. Hastings on June 30. CT abdomen pelvis in ED shows suspected SBO. NG tube was placed in ED, about 500 cc suctioned out. General surgery was consulted in ED. 08/09/2024-States that he is feeling better today, although still has heartburn, some abdominal pain. He also reports multiple bowel movements, as he received suppository and lactulose yesterday. Surgeon evaluated, recommends to DC NG tube and start on clear liquid diet, to be advanced as tolerated Plan: -DC NG tube -Clear liquid diet, advance as tolerated -DC Zofran, commence Reglan -IV Protonix -Pain medications -General Surgery consulted, appreciate recommendations #Leukocytosis, reactive WBC count 12.9 on admission, patient was given cefoxitin in ED, lactate normal. -Will continue to monitor for now 08/09/2024-WBC today, 14.6. No fevers, continue to monitor. #Hypertension #Hyperlipidemia On lisinopril 20 mg daily. Will continue IV hydralazine as needed until patient can tolerate p.o. DVT prophylaxis: SC Heparin GI prophylaxis: IV Protonix daily Diet: Clear liquid diet Lines: Peripheral IV Code status: Full code Case was discussed with Dr Patino PGY-2 and attending physician, Dr Felix Burger MD PGY-1 Disclaimer: This note was dictated by speech recognition. Minor errors in video effects editor may be present due to voice recognition software. Gilmar Ann is a 58 year old male admitted for partial SBO. Patient underwent Gastrograffin small bowel series, imaging showed resolution of obstruction. He was evaluated by general surgery Dr Hastings this morning, who recommended to clamp NGT and start liquid diet as patient has 3+ moderate sized BMs and passing flatus. He is also started on oral laxatives as per surgery recommendations. Patient is tolerating diet, NGT discontinued in the afternoon. Plan: Will re-evaluate in 24 hours, anticipate resolution of symptoms. Will continue to ambulate patient in room. Patient examined and case discussed with the team including attending physician. Note reviewed, I agree with the care plan as documented. - Vel Patino MD, PGY 2 L
[2024-08-09] MEDS: METOCLOPRAMIDE INJ 5 MG/ML VIAL 2 ML 10 MG IVP (13:35)
[2024-08-09] MEDS: NAPH,KPH MBDB 1 PACKET (1.5 GM) 2 PACKET PO (17:42)
[2024-08-09] MEDS: Lisinopril 2.5 MG TABLET 10 MG PO (17:43)
[2024-08-09] MEDS: METOCLOPRAMIDE INJ 5 MG/ML VIAL 2 ML IVP ×2 (17:43→23:50)
[2024-08-09] MEDS: ATORVASTATIN CALCIUM 20 MG TABLET 40 MG PO (20:29)
[2024-08-10] VITALS (12 sets, daily range): BP systolic 111–126; BP diastolic 67–81; PULSE 86–109; RESP 16–21; TEMP 35.9–36.8; O2SAT 90–94; BMI 41.6
[2024-08-10] MEDS: METOCLOPRAMIDE INJ 5 MG/ML VIAL 2 ML IVP (05:46)
[2024-08-10] MEDS: MORPHINE SULF INJ 10 MG/ML VIAL 2 MG IV ×2 (05:53→10:18)
[2024-08-10 06:54] LABS: Basophils % (Auto) 0 % (0-2.5); Eosinophils # (Auto) 0.2 Thou/mm3 (0.0-0.5); Eosinophils % (Auto) 2 % (0-10); Hematocrit 41.4 % (41.0-53.0); Hemoglobin 13.5 g/dL (13.5-16.0); Immature Granulocytes % (Auto) 0 % (0-0); Immature Granulocytes Auto 0.02 Thou/mm3 (0.00-0.00); Lymphocytes # (Auto) 1.4 Thou/mm3 (1.0-4.8); Lymphocytes % (Auto) 17 % (10-50); Mean Corpuscular HGB Conc 32.6 g/dl (31.0-37.0); Mean Corpuscular Hemoglobin 30.3 pg (25.0-35.0); Mean Corpuscular Volume 93 fL (80-100); Monocytes # (Auto) 0.8 Thou/mm3 (0.0-0.8); Monocytes % (Auto) 10 % (0-12); Neutrophils # (Auto) 5.8 Thou/mm3 (1.8-7.7); Neutrophils % (Auto) 70 % (37-80); Nucleated Red Blood Cell % 0 /100 WBC (0); Platelet Count 186 Thou/mm3 (140-440); RDW Standard Deviation 46.1 fL (35.1-43.9); Red Blood Count 4.46 Miln/mm3 (4.50-5.90); White Blood Count 8.3 Thou/mm3 (3.8-10.6)
[2024-08-10 07:06] LABS: Alanine Aminotransferase 51 U/L (10-49); Albumin, Serum 3.3 gm/dL (3.5-5.0); Albumin/Globulin Ratio 1.7 (1.2-2.2); Alkaline Phosphatase 46 U/L (46-116); Anion Gap 10 (7-16); Aspartate Amino Transferase 28 U/L (0-34); BUN/Creatinine Ratio 23 Ratio (12-20); Bilirubin,Total 1.5 mg/dL (0.3-1.2); Blood Urea Nitrogen 18 mg/dL (9-23); Calcium 8.8 mg/dL (8.3-10.6); Calcium (Corrected) 9.4 mg/dL (8.5-10.1); Carbon Dioxide 25.2 mMol/L (20.0-31.0); Chloride 107 mMol/L (98-107); Creatinine (Component) 0.8 mg/dL (0.6-1.3); Estimated Creatinine Clearance 117.1 mL/min (>60); Glucose 97 mg/dL (74-106); Osmolality,Calculated 285 (275-295); Potassium 3.8 mMol/L (3.4-5.1); Sodium 142 mMol/L (136-145); Total Protein 5.3 gm/dL (5.7-8.2); eGFR > 60 See Note
[2024-08-10] MEDS: PANTOPRAZOLE INJ 40 MG VIAL IV ×3 (08:10→20:27)
[2024-08-10] MEDS: HEPARIN SOD INJ 5000 UNIT/ML VIAL SC ×2 (08:11→20:27)
[2024-08-10] MEDS: Lisinopril 2.5 MG TABLET 10 MG PO (08:11)
[2024-08-10] MEDS: DOCUSATE SOD 100 MG CAPSULE PO (08:11)
[2024-08-10] MEDS: TAMSULOSIN HCL 0.4 MG CAPSULE PO (08:11)
--- NOTE | 2024-08-10 09:47 | XR_ITS ---
Examination: Abdomen AP single view Technique: AP portable supine abdomen, single view Exam date and time: August 10, 2024 0959 hrs. Indications: Small bowel series August 08, 2024, abdominal pain and distention this week Findings: Contrast present in the colon on the current study Air distended small bowel remain Impression: Air distended small bowel loops remain
[2024-08-10] MEDS: ONDANSETRON INJ 2 MG/ML INJ 2 ML 4 MG IV (10:47)
--- NOTE | 2024-08-10 10:55 | XR_ITS ---
Examination: Abdomen AP single view Technique: AP portable supine abdomen, single view Exam date and time: August 10, 2024 1120 hrs. Indications: Abdominal pain and distention this week, post orogastric tube placement Findings: Advance the orogastric tube 7 cm Contrast in the colon Impression: Advance the orogastric tube 10 cm
--- NOTE | 2024-08-10 14:39 | PD.RESPRO ---
Documentation for date of: 08/10/24 Subjective Subjective Interval history: Patient seen at bedside. No acute overnight events. His abdominal distension is worse today. He states He also reports multiple bowel movements, as he received suppository and lactulose yesterday. Surgeon evaluated, recommends to DC NG tube and start on clear liquid diet, to be advanced as tolerated. Labs reviewed, uptrending WBC and patient is currently on 2 L of oxygen. Exam Vital Signs Temp Pulse Resp BP Pulse Ox O2 Del Method O2 Flow Rate 96.6 F L 86 18 121/81 94 L Nasal Cannula 2 08/10/24 12:00 08/10/24 12:00 08/10/24 12:00 08/10/24 12:00 08/10/24 12:08/10/24 12:08/10/24 12:00 Narrative Exam Constitutional Alert, oriented x3 , uncomfortable. NG suction connected HEENT Vision grossly intact. Patent nares. Trachea midline. Respiratory Chest normal on inspection and clear to auscultation bilaterally. Cardiovascular S1 and S2 audible, RRR. No murmurs or carotid bruit. No gross JVD. Abdominal Distended and tender to palpation diffusely. BS + Genitourinary No bladder tenderness, no flank pain. Normal to palpation. Musculoskeletal Extremities tone within normal limits. No LE edema. Neurological CN II - XII grossly intact. Extremity motor and sensation grossly intact. Skin Warm, dry and intact. Striae on abdomen, old surgical scar around umbilicus, no umbilicus Psychiatric Patient has a good affect, is cooperative. Objective Labs 08/10/24 04:47 08/10/24 04:47 Labs: Laboratory Results - last 24 hr 08/10/24 04:47 WBC 8.3 D RBC 4.46 L Hgb 13.5 D Hct 41.4 MCV 93 MCH 30.3 MCHC 32.6 RDW Std Deviation 46.1 H Plt Count 186 D Neut % (Auto) 70 Lymph % (Auto) 17 [place] % (Auto) 10 Eos % (Auto) 2 Baso % (Auto) 0 Neut # (Auto) 5.8 Lymph # (Auto) 1.4 [place] # (Auto) 0.8 Eos # (Auto) 0.2 Baso # (Auto) 0.0 Immature Gran # (Auto) 0.02 H Absolute Nucleated RBC 0.00 Immature Gran % 0 Nucleated RBC % 0 Sodium 142 Potassium 3.8 Chloride 107 Carbon Dioxide 25.2 Anion Gap 10 BUN 18 Creatinine 0.8 Estim Creat Clear Calc 117.1 eGFR > 60 BUN/Creatinine Ratio 23 H Glucose 97 Calculated Osmolality 285 Calcium 8.8 Corrected Calcium 9.4 Total Bilirubin 1.5 H AST 28 ALT 51 H Alkaline Phosphatase 46 D Total Protein 5.3 L Albumin 3.3 L D Globulin 2.0 L Albumin/Globulin Ratio 1.7 Quality Measures Quality Measures none Assessment & Plan Assessment Current Active Medications: Generic Name Dose Route Start Last Admin Trade Name Freq PRN Reason Stop Dose Admin Acetaminophen 1,000 mg 08/09/24 14:43 Acetaminophen 325 Mg Tablet PO 09/05/24 20:44 Q6H PRN Pain 1-3 (Mild & Fever >100 Atorvastatin Calcium 40 mg 08/09/24 21:00 08/09/24 20:29 Atorvastatin Calcium 20 Mg Tablet PO 09/08/24 20:59 40 mg HS PAPI Administration Docusate Sodium 100 mg 08/09/24 12:45 08/10/24 08:11 Docusate Sod 100 Mg Capsule PO 09/08/24 12:44 100 mg BID PAPI Administration Protocol Heparin Sodium (Porcine) 5,000 unit 08/07/24 09:00 08/10/24 08:11 Heparin Sod Inj 5000 Unit/Ml Vial SC 08/21/24 08:59 5,000 unit Q12H PAPI Administration Lisinopril 10 mg 08/09/24 15:00 08/10/24 08:11 Lisinopril 2.5 Mg Tablet PO 09/08/24 14:59 10 mg QDAY PAPI Administration Morphine Sulfate 2 mg 08/10/24 09:49 08/10/24 10:18 Morphine Sulf Inj 10 Mg/Ml Vial IV 08/14/24 14:44 2 mg Q3HR PRN Administration PAIN SCALE 4-10(Mod-Sev Ondansetron HCl 4 mg 08/10/24 10:23 08/10/24 10:47 Ondansetron Inj 2 Mg/Ml Inj 2 Ml IV 09/09/24 10:22 4 mg Q6HR PRN Administration NAUSEA OR VOMITING Protocol Pantoprazole Sodium 40 mg 08/08/24 09:45 08/10/24 08:10 Pantoprazole Inj 40 Mg Vial IV 09/07/24 09:44 40 mg BID PAPI Administration Tamsulosin HCl 0.4 mg 08/09/24 09:45 08/10/24 08:11 Tamsulosin Hcl 0.4 Mg Capsule PO 09/08/24 09:44 0.4 mg QDAY PAPI Administration Plan The patient is a 58-year-old Ukrainian-speaking male with past medical history of umbilical hernia status post repair, hypertension and hyperlipidemia who presented to [facility] on 08/06/2024 from home with a chief complaint of abdominal pain. Patient admitted for small bowel obstruction management. Small bowel obstruction Constipation s/p Laparoscopic repair of incarcerated incisional hernia with mesh (06/30/2024) Patient came in for distended abdomen, abdominal pain, nausea and vomiting. Patient had recent surgery with Dr. Hastings on June 30. CT abdomen pelvis in ED shows suspected SBO. NG tube was placed in ED, about 500 cc suctioned out. General surgery was consulted in ED. 08/09 - States that he is feeling better today, some abdominal pain. He also reports multiple bowel movements. Surgeon evaluated, recommends to DC NGT and start clear liquid diet, to be advanced as tolerated. 08/10 - worsening distension. Patient NPO again, NGT with suction restarted. General surgeyr informed, appreciate recommendations. Patient had BM x1 today Repeat Abdomen XR : possible SBO, distended bowel loops noted. GI consult requested. Plan: -General surgery Dr Hastings consulted, appreciate recommendations -GI Dr Ovalles consulted, await recommendations -Re-inserted NG tube with suction -NPO until GI evaluation -PRN Zofran added back. Discontinued Reglan given distension and possible SBO -IV Protonix to continue -Pain medications: IV Morphine Primary Hypertension Hyperlipidemia On lisinopril 20 mg daily at home Plan: Will continue IV hydralazine as needed until patient can tolerate p.o. HOLD atorvastatin 40mg until diet resumed Health maintenance: DVT prophylaxis: SC Heparin GI prophylaxis: IV Protonix daily Diet: NPO Lines: Peripheral IV Code status: Full code Plan of care discussed with attending Dr Washington , Vel Patino M.D. PGY2
[2024-08-10] MEDS: HYDROmorphone INJ 2 MG/ML VIAL 0.25 MG IVP (15:34)
--- NOTE | 2024-08-10 16:15 | PD.IMCONS ---
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 incarcerated incisional hernia on 06/30/2024 which was uneventful Patient's symptoms did resolve after small bowel follow-through patient had bowel movements and there is a contrast in the colon Chronic KUB done today shows Distended small bowel loops and contrast in the colon not much air-fluid levels cc:: cc: Boris Washington MD Review of Systems Review of Systems Systems Reviewed: All systems reviewed, normal except as documented Past Medical History Surgical History OTHER SURGICAL HX: Essential hypertension hyperlipidemia On Ozempic Meds Home Medications and Allergies Home Medications ?Medication ?Instructions ?Recorded ?Confirmed ?Type atorvastatin 20 mg tablet 20 mg PO DAILY 06/26/24 08/07/24 History lisinopril 20 mg tablet 20 mg PO DAILY 06/26/24 08/07/24 History semaglutide 2 mg/dose (8 mg/3 mL) 2 mg subcut QWEEK 06/26/24 08/07/24 History subcutaneous pen injector (Ozempic) Allergies Allergy/AdvReac Type Severity Reaction Status Date / Time No Known Allergies Allergy Verified 08/06/24 12:43 Exam Vital Signs Temp Pulse Resp BP Pulse Ox O2 Del Method O2 Flow Rate 98.2 F 98 19 124/74 94 L Nasal Cannula 2 08/10/24 15:56 08/10/24 15:56 08/10/24 15:56 08/10/24 15:56 08/10/24 15:56 08/10/24 15:56 08/10/24 15:56 Constitutional Comments: Alert oriented Routine Respiratory Exam Comments: Normal to auscultation Routine Abdominal Exam Comments: Distended abdomen no bowel sounds NGT in place and bilious drainage Results Labs 08/10/24 04:47 08/10/24 04:47 Labs: Short CBC 08/10/24 Range/Units 04:47 WBC 8.3 D (3.8-10.6) Thou/mm3 Hgb 13.5 D (13.5-16.0) g/dL Hct 41.4 (41.0-53.0) % Plt Count 186 D (140-440) Thou/mm3 BMP 08/10/24 04:47 Sodium 142 Potassium 3.8 Chloride 107 Carbon Dioxide 25.2 BUN 18 Creatinine 0.8 Glucose 97 Calcium 8.8 Liver Function 08/10/24 Range/Units 04:47 Total Bilirubin 1.5 H (0.3-1.2) mg/dL AST 28 (0-34) U/L ALT 51 H (10-49) U/L Alkaline Phosphatase 46 D (46-116) U/L Albumin 3.3 L D (3.5-5.0) gm/dL Assessment and Plan Additional Assessment & Plan Additional Plan: # Ileus with possible small bowel obstruction although not many air-fluid levels Plan and recommendations Keep the patient n.p.o. Continue NG to suction to intermittent suction And IV Reglan 10 mg IV push every 6 Patient should not have Ozempic upon discharge or in the hospital this can have serious side effects GI tract related We will follow the patient Repeat KUB in the morning Other medical problems include #recent repair of the Incarcerated incisional hernia laparoscopically on 06/30/2024 # Essential hypertension # Hyperlipidemia # Diabetes mellitus type Thank you for the opportunity to participate in the care of this patient
--- NOTE | 2024-08-10 18:15 | PC.NURSE ---
pt complaining of pain to the tonsils and a feeling of severe heart burn, Dr. Malin notified, MD to place orders for protonix and troponin lab draw.
[2024-08-10] MEDS: METOCLOPRAMIDE INJ 5 MG/ML VIAL 2 ML 10 MG IVP ×2 (18:17→23:58)
--- NOTE | 2024-08-10 18:30 | PC.NURSE ---
upon administering protonix and reglan, pt stating that his discomfort improved, pt now appears comfortable in bed.
[2024-08-10 19:16] LABS: Troponin I < 0.020 ng/mL (0.0-0.045)
[2024-08-11] VITALS (11 sets, daily range): BP systolic 110–149; BP diastolic 66–92; PULSE 85–109; RESP 16–20; TEMP 36.1–36.8; O2SAT 91–94
[2024-08-11] MEDS: METOCLOPRAMIDE INJ 5 MG/ML VIAL 2 ML 10 MG IVP ×4 (05:10→23:51)
[2024-08-11 05:20] LABS: Basophils % (Auto) 0 % (0-2.5); Eosinophils # (Auto) 0.1 Thou/mm3 (0.0-0.5); Eosinophils % (Auto) 3 % (0-10); Hematocrit 40.6 % (41.0-53.0); Hemoglobin 13.2 g/dL (13.5-16.0); Immature Granulocytes % (Auto) 0 % (0-0); Immature Granulocytes Auto 0.02 Thou/mm3 (0.00-0.00); Lymphocytes # (Auto) 1.1 Thou/mm3 (1.0-4.8); Lymphocytes % (Auto) 21 % (10-50); Mean Corpuscular HGB Conc 32.5 g/dl (31.0-37.0); Mean Corpuscular Hemoglobin 30.5 pg (25.0-35.0); Mean Corpuscular Volume 94 fL (80-100); Monocytes # (Auto) 0.7 Thou/mm3 (0.0-0.8); Monocytes % (Auto) 14 % (0-12); Neutrophils # (Auto) 3.2 Thou/mm3 (1.8-7.7); Neutrophils % (Auto) 62 % (37-80); Nucleated Red Blood Cell % 0 /100 WBC (0); Platelet Count 178 Thou/mm3 (140-440); RDW Standard Deviation 45.9 fL (35.1-43.9); Red Blood Count 4.33 Miln/mm3 (4.50-5.90); White Blood Count 5.2 Thou/mm3 (3.8-10.6)
[2024-08-11 05:53] LABS: Alanine Aminotransferase 36 U/L (10-49); Albumin, Serum 3.5 gm/dL (3.5-5.0); Albumin/Globulin Ratio 1.8 (1.2-2.2); Alkaline Phosphatase 43 U/L (46-116); Anion Gap 10 (7-16); Aspartate Amino Transferase 16 U/L (0-34); BUN/Creatinine Ratio 21 Ratio (12-20); Bilirubin,Total 1.1 mg/dL (0.3-1.2); Blood Urea Nitrogen 17 mg/dL (9-23); Calcium (Corrected) 9.4 mg/dL (8.5-10.1); Carbon Dioxide 24.5 mMol/L (20.0-31.0); Chloride 109 mMol/L (98-107); Creatinine (Component) 0.8 mg/dL (0.6-1.3); Estimated Creatinine Clearance 115.1 mL/min (>60); Globulin 1.9 gm/dL (2.3-3.5); Glucose 82 mg/dL (74-106); LDH (Lactate Dehydrogenase) 149 U/L (120-246); Osmolality,Calculated 285 (275-295); Phosphorous 2.8 mg/dL (2.4-5.1); Potassium 3.8 mMol/L (3.4-5.1); Sodium 143 mMol/L (136-145); Total Protein 5.4 gm/dL (5.7-8.2); eGFR > 60 See Note
--- NOTE | 2024-08-11 08:11 | XR_ITS ---
Examination: Abdomen AP single view Technique: AP portable supine abdomen, single view Exam date and time: August 11, 2024 0830 hours INDICATIONS: Abdominal pain and distention this week FINDINGS: Contrast present throughout the colon Air distended small bowel loops IMPRESSION: Small bowel obstruction pattern
[2024-08-11] MEDS: DOCUSATE SOD 100 MG CAPSULE PO ×2 (09:00→21:00)
[2024-08-11] MEDS: TAMSULOSIN HCL 0.4 MG CAPSULE PO (09:00)
[2024-08-11] MEDS: Lisinopril 2.5 MG TABLET 10 MG PO (09:00)
[2024-08-11] MEDS: HEPARIN SOD INJ 5000 UNIT/ML VIAL SC ×2 (09:02→21:00)
[2024-08-11] MEDS: PANTOPRAZOLE INJ 40 MG VIAL IV (09:03)
--- NOTE | 2024-08-11 10:03 | PD.SURPROG ---
Documentation for date of: 08/11/24 Subjective Subjective Narrative: Patient is seen and examined. He is feeling much better today. He has been having bowel movement. Yesterday he had abdominal distention with nausea and NG tube was placed. Exam Vital Signs Temp Pulse Resp BP Pulse Ox O2 Del Method O2 Flow Rate 97.2 F 96 18 130/87 H 93 L Nasal Cannula 2 08/11/24 08:00 08/11/24 09:00 08/11/24 08:53 08/11/24 09:00 08/11/24 08:53 08/11/24 08:00 08/11/24 08:53 Constitutional Constitutional: no acute distress Routine Abdominal Exam Comments: Abdomen is soft and mildly distended. He has active bowel sounds. Assessment & Plan Assessment Additional comments: Small bowel obstruction, improving Plan Clamped NG tube and will administer milk of magnesia through the NG tube. Continue to ambulate
[2024-08-11] MEDS: Milk Of Magnesia Susp 30 ML UDC NG (10:39)
[2024-08-11] MEDS: guaiFENesin/DM TABLET 1 EACH PO ×2 (10:39→21:00)
--- NOTE | 2024-08-11 16:16 | PD.RESPRO ---
Documentation for date of: 08/11/24 Subjective Subjective Interval history: Patient seen at bedside. No acute overnight events. His abdominal distension is worse today. He states He also reports multiple bowel movements, as he received suppository and lactulose yesterday. Surgeon evaluated, recommends to DC NG tube and start on clear liquid diet, to be advanced as tolerated. Labs reviewed, uptrending WBC and patient is currently on 2 L of oxygen. Exam Vital Signs Temp Pulse Resp BP Pulse Ox O2 Del Method O2 Flow Rate 97.2 F 85 18 138/89 H 94 L Nasal Cannula 2 08/11/24 12:00 08/11/24 12:00 08/11/24 12:00 08/11/24 12:00 08/11/24 12:08/11/24 12:08/11/24 12:00 Narrative Exam Constitutional Alert, oriented x3 , uncomfortable. NG intermittent suction +500mL output -> suction clamped HEENT Vision grossly intact. Patent nares. Trachea midline. Respiratory Chest normal on inspection and clear to auscultation bilaterally. Cardiovascular S1 and S2 audible, RRR. No murmurs or carotid bruit. No gross JVD. Abdominal Distended and tender to palpation diffusely. BS + Genitourinary No bladder tenderness, no flank pain. Normal to palpation. Musculoskeletal Extremities tone within normal limits. No LE edema. Neurological CN II - XII grossly intact. Extremity motor and sensation grossly intact. Skin Warm, dry and intact. Striae on abdomen, old surgical scar around umbilicus, no umbilicus Psychiatric Patient has a good affect, is cooperative. Objective Labs 08/12/24 04:45 08/12/24 04:45 Labs: Laboratory Results - last 24 hr 08/10/24 08/11/24 18:34 04:57 WBC 5.2 RBC 4.33 L Hgb 13.2 L Hct 40.6 L MCV 94 MCH 30.5 MCHC 32.5 RDW Std Deviation 45.9 H Plt Count 178 Neut % (Auto) 62 Lymph % (Auto) 21 [place] % (Auto) 14 H Eos % (Auto) 3 Baso % (Auto) 0 Neut # (Auto) 3.2 Lymph # (Auto) 1.1 [place] # (Auto) 0.7 Eos # (Auto) 0.1 Baso # (Auto) 0.0 Immature Gran # (Auto) 0.02 H Absolute Nucleated RBC 0.00 Immature Gran % 0 Nucleated RBC % 0 Sodium 143 Potassium 3.8 Chloride 109 H Carbon Dioxide 24.5 Anion Gap 10 BUN 17 Creatinine 0.8 Estim Creat Clear Calc 115.1 eGFR > 60 BUN/Creatinine Ratio 21 H Glucose 82 Calculated Osmolality 285 Calcium 9.0 Corrected Calcium 9.4 Phosphorus 2.8 Magnesium 2.0 Total Bilirubin 1.1 AST 16 ALT 36 Alkaline Phosphatase 43 L Lactate Dehydrogenase 149 Troponin I < 0.020 Total Protein 5.4 L Albumin 3.5 Globulin 1.9 L Albumin/Globulin Ratio 1.8 Quality Measures Quality Measures none Assessment & Plan Assessment Current Active Medications: Generic Name Dose Route Start Last Admin Trade Name Freq PRN Reason Stop Dose Admin Acetaminophen 1,000 mg 08/11/24 09:26 Acetaminophen 500 Mg Tablet PO 09/05/24 20:44 Q6H PRN Pain 1-3 (Mild & Fever >100 Atorvastatin Calcium 40 mg 08/09/24 21:00 08/10/24 20:29 Atorvastatin Calcium 20 Mg Tablet PO 09/08/24 20:59 Not Given HS PAPI Docusate Sodium 100 mg 08/09/24 12:45 08/11/24 09:00 Docusate Sod 100 Mg Capsule PO 09/08/24 12:44 100 mg BID PAPI Administration Protocol Guaifenesin/Dextromethorphan 1 each 08/11/24 09:30 08/11/24 10:39 Guaifenesin/Dm Tablet PO 09/10/24 09:29 1 each BID PAPI Administration Heparin Sodium (Porcine) 5,000 unit 08/07/24 09:00 08/11/24 09:02 Heparin Sod Inj 5000 Unit/Ml Vial SC 08/21/24 08:59 5,000 unit Q12H PAPI Administration Hydromorphone HCl 0.25 mg 08/10/24 15:08 08/10/24 15:34 Hydromorphone Inj 2 Mg/Ml Vial IVP 08/15/24 15:07 0.25 mg Q4HR PRN Administration PAIN Protocol Lisinopril 10 mg 08/09/24 15:00 08/11/24 09:00 Lisinopril 2.5 Mg Tablet PO 09/08/24 14:59 10 mg QDAY PAPI Administration Metoclopramide HCl 10 mg 08/10/24 18:00 08/11/24 12:11 Metoclopramide Inj 5 Mg/Ml Vial 2 Ml IVP 09/09/24 17:59 10 mg Q6HR PAPI Administration Protocol Ondansetron HCl 4 mg 08/10/24 10:23 08/10/24 10:47 Ondansetron Inj 2 Mg/Ml Inj 2 Ml IV 09/09/24 10:22 4 mg Q6HR PRN Administration NAUSEA OR VOMITING Protocol Pantoprazole Sodium 40 mg 08/08/24 09:45 08/11/24 09:03 Pantoprazole Inj 40 Mg Vial IV 09/07/24 09:44 40 mg BID PAPI Administration Tamsulosin HCl 0.4 mg 08/09/24 09:45 08/11/24 09:00 Tamsulosin Hcl 0.4 Mg Capsule PO 09/08/24 09:44 0.4 mg QDAY PAPI Administration Plan The patient is a 58-year-old Turkish-speaking male with past medical history of umbilical hernia status post repair, hypertension and hyperlipidemia who presented to [facility] on 08/06/2024 from home with a chief complaint of abdominal pain. Patient admitted for small bowel obstruction management. Small bowel obstruction Constipation s/p Laparoscopic repair of incarcerated incisional hernia with mesh (06/30/2024) Patient came in for distended abdomen, abdominal pain, nausea and vomiting. Patient had recent surgery with Dr. Hastings on June 30. CT abdomen pelvis in ED shows suspected SBO. NG tube was placed in ED, about 500 cc suctioned out. General surgery was consulted in ED. 08/09 : States that he is feeling better today, some abdominal pain. He also reports multiple bowel movements. Surgeon evaluated, recommends to DC NGT and start clear liquid diet, to be advanced as tolerated. 08/10 : Worsening distension. Abdomen XR : possible SBO, distended bowel loops noted. GI consult requested. Patient NPO again, NGT with suction restarted. General surgeyr informed, appreciate recommendations. Patient had BM x1 today 08/11 : KUB still shows distended bowel loops. NGT with intermittent suction overnight had >500mL output. Patient less distended today but still very tender. Generla surgery evaluated patient and clamped NG, and gave milk of Mag x1 Plan: - General surgery Dr Hastings following, appreciate recommendations - Re-inserted NG tube with intermittent suction -> clamped by Dr Hastings - Milk of Mag x1 via NGT ordered by general surgery - GI Dr Ovalles consulted, appreciate recommendations. - PAPI Reglan 10mg q6H after GI evaluation - Will restart clear liquid diet from dinner 08/11 - IV Protonix to continue - Pain medications: IV Morphine Primary Hypertension Hyperlipidemia On lisinopril 20 mg daily at home BP 130/80s Plan: - Resumed Lisinopril 10mg daily - HOLD atorvastatin 40mg until diet resumed Health maintenance: DVT prophylaxis: SC Heparin GI prophylaxis: IV Protonix daily Diet: NPO -> clear liquid Lines: Peripheral IV Code status: Full code Plan of care discussed with attending Dr Ruiz , Vel Patino M.D. PGY2 Disclaimer: This note was dictated by speech recognition. Minor errors in criminal profiler may be present due to voice recognition software. Attending Provider Attestation/Addendum I have examined the patient, reviewed labs and imaging findings, discussed the case with the resident(s), and reviewed entered orders. I agree with the plan of care as outlined in this note, with these additional summaries/recommendations: Patient seen at bedside. No acute overnight events. Abdominal x-ray today still shows small bowel obstruction pattern although patient endorses having 3 bowel movements over last 24 hours. General surgery following and NG tube clamped and general surgery recommends milk of magnesia through NG tube. Holding home lisinopril and atorvastatin for now until patient can tolerate oral intake. As needed hydralazine for now. Patient updated on the plan and in agreement. Repeat hematology and chemistry panel in AM. Dr. Ruiz
[2024-08-11] MEDS: ATORVASTATIN CALCIUM 20 MG TABLET 40 MG PO (21:00)
[2024-08-11] MEDS: MORPHINE SULF INJ 10 MG/ML VIAL 2 MG IVP (21:31)
--- NOTE | 2024-08-11 21:48 | PD.IMPROG ---
Documentation for date of: 08/11/24 Subjective Subjective Interval history: Feeling better with the NGT which is clamped at the moment Exam Vital Signs Temp Pulse Resp BP Pulse Ox O2 Del Method O2 Flow Rate 98.2 F 108 H 20 122/84 94 L Nasal Cannula 2 08/11/24 20:00 08/11/24 20:00 08/11/24 20:00 08/11/24 20:00 08/11/24 20:00 08/11/24 20:00 08/11/24 12:00 Objective Labs 08/11/24 04:57 08/11/24 04:57 Labs: Laboratory Results - last 24 hr 08/11/24 04:57 WBC 5.2 RBC 4.33 L Hgb 13.2 L Hct 40.6 L MCV 94 MCH 30.5 MCHC 32.5 RDW Std Deviation 45.9 H Plt Count 178 Neut % (Auto) 62 Lymph % (Auto) 21 [place] % (Auto) 14 H Eos % (Auto) 3 Baso % (Auto) 0 Neut # (Auto) 3.2 Lymph # (Auto) 1.1 [place] # (Auto) 0.7 Eos # (Auto) 0.1 Baso # (Auto) 0.0 Immature Gran # (Auto) 0.02 H Absolute Nucleated RBC 0.00 Immature Gran % 0 Nucleated RBC % 0 Sodium 143 Potassium 3.8 Chloride 109 H Carbon Dioxide 24.5 Anion Gap 10 BUN 17 Creatinine 0.8 Estim Creat Clear Calc 115.1 eGFR > 60 BUN/Creatinine Ratio 21 H Glucose 82 Calculated Osmolality 285 Calcium 9.0 Corrected Calcium 9.4 Phosphorus 2.8 Magnesium 2.0 Total Bilirubin 1.1 AST 16 ALT 36 Alkaline Phosphatase 43 L Lactate Dehydrogenase 149 Total Protein 5.4 L Albumin 3.5 Globulin 1.9 L Albumin/Globulin Ratio 1.8 Impressions Impression: # Ileus with bilious vomiting improved after NG to intermittent suction clamped at the moment continue current management Assessment & Plan A&P Narrative # Ileus with possible small bowel obstruction although not many air-fluid levels Plan and recommendations Keep the patient n.p.o. Continue NG to suction to intermittent suction And IV Reglan 10 mg IV push every 6 Patient should not have Ozempic upon discharge or in the hospital this can have serious side effects GI tract related We will follow the patient Repeat KUB in the morning Other medical problems include #recent repair of the Incarcerated incisional hernia laparoscopically on 06/30/2024 # Essential hypertension # Hyperlipidemia # Diabetes mellitus type Thank you for the opportunity to participate in the care of this patient Time Spent With Patient Time: Total time spent is greater than 50% in coordination of care (as documented) at patient's floor/unit and/or counseling patient:
[2024-08-12] VITALS (9 sets, daily range): BP systolic 116–158; BP diastolic 73–95; PULSE 89–115; RESP 16–20; TEMP 36.3–37; O2SAT 91–97
[2024-08-12] MEDS: HYDROmorphone INJ 2 MG/ML VIAL 1 MG IVP (00:05)
[2024-08-12] MEDS: METOCLOPRAMIDE INJ 5 MG/ML VIAL 2 ML 10 MG IVP ×3 (05:06→17:26)
[2024-08-12 05:22] LABS: Basophils % (Auto) 0 % (0-2.5); Eosinophils # (Auto) 0.2 Thou/mm3 (0.0-0.5); Eosinophils % (Auto) 2 % (0-10); Hematocrit 42.2 % (41.0-53.0); Hemoglobin 13.9 g/dL (13.5-16.0); Immature Granulocytes % (Auto) 0 % (0-0); Immature Granulocytes Auto 0.02 Thou/mm3 (0.00-0.00); Lymphocytes # (Auto) 1.3 Thou/mm3 (1.0-4.8); Lymphocytes % (Auto) 19 % (10-50); Mean Corpuscular HGB Conc 32.9 g/dl (31.0-37.0); Mean Corpuscular Hemoglobin 30.8 pg (25.0-35.0); Mean Corpuscular Volume 94 fL (80-100); Monocytes # (Auto) 0.8 Thou/mm3 (0.0-0.8); Monocytes % (Auto) 12 % (0-12); Neutrophils # (Auto) 4.3 Thou/mm3 (1.8-7.7); Neutrophils % (Auto) 66 % (37-80); Nucleated Red Blood Cell % 0 /100 WBC (0); Platelet Count 192 Thou/mm3 (140-440); RDW Standard Deviation 44.5 fL (35.1-43.9); Red Blood Count 4.51 Miln/mm3 (4.50-5.90); White Blood Count 6.5 Thou/mm3 (3.8-10.6)
[2024-08-12 05:49] LABS: Alanine Aminotransferase 30 U/L (10-49); Albumin, Serum 3.6 gm/dL (3.5-5.0); Albumin/Globulin Ratio 1.8 (1.2-2.2); Alkaline Phosphatase 46 U/L (46-116); Anion Gap 11 (7-16); Aspartate Amino Transferase 19 U/L (0-34); BUN/Creatinine Ratio 19 Ratio (12-20); Bilirubin,Total 0.9 mg/dL (0.3-1.2); Blood Urea Nitrogen 15 mg/dL (9-23); Calcium 8.9 mg/dL (8.3-10.6); Calcium (Corrected) 9.2 mg/dL (8.5-10.1); Carbon Dioxide 26.1 mMol/L (20.0-31.0); Chloride 107 mMol/L (98-107); Creatinine (Component) 0.8 mg/dL (0.6-1.3); Estimated Creatinine Clearance 115.1 mL/min (>60); Glucose 87 mg/dL (74-106); Osmolality,Calculated 286 (275-295); Potassium 4.1 mMol/L (3.4-5.1); Sodium 144 mMol/L (136-145); Total Protein 5.6 gm/dL (5.7-8.2); eGFR > 60 See Note
--- NOTE | 2024-08-12 06:31 | PC.NURSE ---
MD Glover made aware of K result of 3.1 and magnesium 1.4, per MD will put order in.
[2024-08-12] MEDS: HEPARIN SOD INJ 5000 UNIT/ML VIAL SC ×2 (09:08→20:12)
[2024-08-12] MEDS: DOCUSATE SOD 100 MG CAPSULE PO ×2 (09:08→20:12)
[2024-08-12] MEDS: TAMSULOSIN HCL 0.4 MG CAPSULE PO (09:08)
[2024-08-12] MEDS: Lisinopril 2.5 MG TABLET 10 MG PO (09:24)
[2024-08-12] MEDS: guaiFENesin/DM TABLET 1 EACH PO ×2 (09:24→20:12)
[2024-08-12] MEDS: PANTOPRAZOLE INJ 40 MG VIAL IV (09:25)
--- NOTE | 2024-08-12 10:01 | PD.IMPROG ---
Documentation for date of: 08/12/24 Subjective Subjective Interval history: Having bowel movements Abdominal distention is less No nausea vomiting Exam Vital Signs Temp Pulse Resp BP Pulse Ox O2 Del Method O2 Flow Rate 97.5 F 97 16 158/95 H 97 Nasal Cannula 3 08/12/24 08:00 08/12/24 09:24 08/12/24 09:07 08/12/24 09:24 08/12/24 09:07 08/12/24 08:00 08/12/24 09:07 Objective Labs 08/12/24 04:45 08/12/24 04:45 Labs: Laboratory Results - last 24 hr 08/12/24 04:45 WBC 6.5 RBC 4.51 Hgb 13.9 Hct 42.2 MCV 94 MCH 30.8 MCHC 32.9 RDW Std Deviation 44.5 H Plt Count 192 Neut % (Auto) 66 Lymph % (Auto) 19 [place] % (Auto) 12 Eos % (Auto) 2 Baso % (Auto) 0 Neut # (Auto) 4.3 Lymph # (Auto) 1.3 [place] # (Auto) 0.8 Eos # (Auto) 0.2 Baso # (Auto) 0.0 Immature Gran # (Auto) 0.02 H Absolute Nucleated RBC 0.00 Immature Gran % 0 Nucleated RBC % 0 Sodium 144 Potassium 4.1 Chloride 107 Carbon Dioxide 26.1 Anion Gap 11 BUN 15 Creatinine 0.8 Estim Creat Clear Calc 115.1 eGFR > 60 BUN/Creatinine Ratio 19 Glucose 87 Calculated Osmolality 286 Calcium 8.9 Corrected Calcium 9.2 Total Bilirubin 0.9 AST 19 ALT 30 Alkaline Phosphatase 46 Total Protein 5.6 L Albumin 3.6 Globulin 2.0 L Albumin/Globulin Ratio 1.8 Impressions Impression: Resolving ileus Advance diet as tolerated Assessment & Plan A&P Narrative # Ileus with possible small bowel obstruction although not many air-fluid levels Plan and recommendations Keep the patient n.p.o. Continue NG to suction to intermittent suction And IV Reglan 10 mg IV push every 6 Patient should not have Ozempic upon discharge or in the hospital this can have serious side effects GI tract related We will follow the patient Repeat KUB in the morning Other medical problems include #recent repair of the Incarcerated incisional hernia laparoscopically on 06/30/2024 # Essential hypertension # Hyperlipidemia # Diabetes mellitus type Thank you for the opportunity to participate in the care of this patient Time Spent With Patient Time: Total time spent is greater than 50% in coordination of care (as documented) at patient's floor/unit and/or counseling patient:
[2024-08-12] MEDS: MORPHINE SULF INJ 10 MG/ML VIAL 2 MG IVP ×2 (11:30→20:10)
--- NOTE | 2024-08-12 14:13 | PD.SURPROG ---
Documentation for date of: 08/12/24 Subjective Subjective Narrative: Patient is seen and examined. He states that his pain is improving. He is tolerating liquid diet without nausea or vomiting and having bowel movements. His NG tube has been clamped Exam Vital Signs Temp Pulse Resp BP Pulse Ox O2 Del Method O2 Flow Rate 97.8 F 93 20 120/74 93 L Nasal Cannula 3 08/12/24 12:00 08/12/24 12:00 08/12/24 12:00 08/12/24 12:00 08/12/24 12:00 08/12/24 12:08/12/24 12:00 Constitutional Constitutional: no acute distress Routine Abdominal Exam Comments: His abdomen is soft but distended. Bowel sounds are active and present Assessment & Plan Plan DC NG tube. Will advance to soft diet tomorrow, if tolerating may discharge
--- NOTE | 2024-08-12 15:14 | ESPR_ITS ---
<Statement entered by Ignacio Maddox MD - 08/12/24 18:18> Senior Resident Attestation: I supervised/discussed management plan with internal affairs investigator physician Dr. Burger, and was involved in the care of this patient. I personally saw and examined the patient and discussed the assessment and plan with the entire medicine team, including my attending. I agree with the assessment and plan as documented. Patient's care was discussed with attending physician, Dr. Ruiz. Ignacio Maddox MD PGY-2. Documentation for date of: 08/12/24 Subjective Subjective Interval history: Patient seen at bedside. No acute overnight events. He reports significant improvement, he is having regular bowel movements now and less pain. He still does have some heartburn and is on Protonix 40 mg. Examination, abdominal distention has significantly improved and patient is less tender. NG tube discontinued, patient has been advanced to full liquid diet and will be advanced to soft diet, anticipate discharge within 24 hours if tolerating. Exam Vital Signs Temp Pulse Resp BP Pulse Ox O2 Del Method O2 Flow Rate 97.8 F 93 20 120/74 93 L Nasal Cannula 3 08/12/24 12:00 08/12/24 12:00 08/12/24 12:00 08/12/24 12:00 08/12/24 12:00 08/12/24 12:08/12/24 12:00 Narrative Exam GENERAL: AAOX3 NEURO: BOBBIN DRIER grossly intact, moves extremities x4 HEENT: Moist mucosa. Eyes open, symmetrical, & clear CARDIO: No chest pain on palpation. Heart RRR, no obvious murmurs PULM: No noted coughing/dyspnea. Lungs CTA B/L GI: Abdomen soft, distended and tender to palpation. BSx4 URO/ENGINEER ASSISTANT:: No further abnormalities noted. SKIN/MSK/EXT: No wounds/rashes/edema/amputations, no pain on palpation. Pedal pulses present B/L Objective Labs 08/13/24 04:33 08/13/24 04:33 Labs: Laboratory Results - last 24 hr 08/12/24 04:45 WBC 6.5 RBC 4.51 Hgb 13.9 Hct 42.2 MCV 94 MCH 30.8 MCHC 32.9 RDW Std Deviation 44.5 H Plt Count 192 Neut % (Auto) 66 Lymph % (Auto) 19 [place] % (Auto) 12 Eos % (Auto) 2 Baso % (Auto) 0 Neut # (Auto) 4.3 Lymph # (Auto) 1.3 [place] # (Auto) 0.8 Eos # (Auto) 0.2 Baso # (Auto) 0.0 Immature Gran # (Auto) 0.02 H Absolute Nucleated RBC 0.00 Immature Gran % 0 Nucleated RBC % 0 Sodium 144 Potassium 4.1 Chloride 107 Carbon Dioxide 26.1 Anion Gap 11 BUN 15 Creatinine 0.8 Estim Creat Clear Calc 115.1 eGFR > 60 BUN/Creatinine Ratio 19 Glucose 87 Calculated Osmolality 286 Calcium 8.9 Corrected Calcium 9.2 Total Bilirubin 0.9 AST 19 ALT 30 Alkaline Phosphatase 46 Total Protein 5.6 L Albumin 3.6 Globulin 2.0 L Albumin/Globulin Ratio 1.8 Quality Measures Quality Measures none Assessment & Plan Assessment Current Active Medications: Generic Name Dose Route Start Last Admin Trade Name Freq PRN Reason Stop Dose Admin Acetaminophen 1,000 mg 08/11/24 09:26 Acetaminophen 500 Mg Tablet PO 09/05/24 20:44 Q6H PRN Pain 1-3 (Mild & Fever >100 Atorvastatin Calcium 40 mg 08/09/24 21:00 08/11/24 21:00 Atorvastatin Calcium 20 Mg Tablet PO 09/08/24 20:59 40 mg HS PAPI Administration Docusate Sodium 100 mg 08/09/24 12:45 08/12/24 09:08 Docusate Sod 100 Mg Capsule PO 09/08/24 12:44 100 mg BID PAPI Administration Protocol Guaifenesin/Dextromethorphan 1 each 08/11/24 09:30 08/12/24 09:24 Guaifenesin/Dm Tablet PO 09/10/24 09:29 1 each BID PAPI Administration Heparin Sodium (Porcine) 5,000 unit 08/07/24 09:00 08/12/24 09:08 Heparin Sod Inj 5000 Unit/Ml Vial SC 08/21/24 08:59 5,000 unit Q12H PAPI Administration Lisinopril 10 mg 08/12/24 09:00 08/12/24 09:24 Lisinopril 2.5 Mg Tablet PO 09/11/24 08:59 10 mg QDAY PAPI Administration Metoclopramide HCl 10 mg 08/10/24 18:00 08/12/24 11:21 Metoclopramide Inj 5 Mg/Ml Vial 2 Ml IVP 09/09/24 17:59 10 mg Q6HR PAPI Administration Protocol Morphine Sulfate 2 mg 08/11/24 16:35 08/12/24 11:30 Morphine Sulf Inj 10 Mg/Ml Vial IVP 08/16/24 16:34 2 mg Q4HR PRN Administration Pain 6-10 Ondansetron HCl 4 mg 08/10/24 10:23 08/10/24 10:47 Ondansetron Inj 2 Mg/Ml Inj 2 Ml IV 09/09/24 10:22 4 mg Q6HR PRN Administration NAUSEA OR VOMITING Protocol Pantoprazole Sodium 40 mg 08/12/24 09:00 08/12/24 09:25 Pantoprazole Inj 40 Mg Vial IV 09/11/24 08:59 40 mg DAILY PAPI Administration Tamsulosin HCl 0.4 mg 08/09/24 09:45 08/12/24 09:08 Tamsulosin Hcl 0.4 Mg Capsule PO 09/08/24 09:44 0.4 mg QDAY PAPI Administration Plan The patient is a 58-year-old Icelandic-speaking male with past medical history of umbilical hernia status post repair, hypertension and hyperlipidemia who presented to [facility] on 08/06/2024 from home with a chief complaint of abdominal pain. Patient admitted for small bowel obstruction management. #Small bowel obstruction #Constipation #S/p Laparoscopic repair of incarcerated incisional hernia with mesh (06/30/2024) Patient came in for distended abdomen, abdominal pain, nausea and vomiting. Patient had recent surgery with Dr. Hastings on June 30. CT abdomen pelvis in ED shows suspected SBO. NG tube was placed in ED, about 500 cc suctioned out. General surgery was consulted in ED. 08/09 : States that he is feeling better today, some abdominal pain. He also reports multiple bowel movements. Surgeon evaluated, recommends to DC NGT and start clear liquid diet, to be advanced as tolerated. 08/10 : Worsening distension. Abdomen XR : possible SBO, distended bowel loops noted. GI consult requested. Patient NPO again, NGT with suction restarted. General surgeyr informed, appreciate recommendations. Patient had BM x1 today 08/11 : KUB still shows distended bowel loops. NGT with intermittent suction overnight had >500mL output. Patient less distended today but still very tender. Generla surgery evaluated patient and clamped NG, and gave milk of Mag x1 08/12: He reports significant improvement, he is having regular bowel movements now and less pain. He still does have some heartburn and is on Protonix 40 mg. Examination, abdominal distention has significantly improved and patient is less tender. NG tube discontinued, patient has been advanced to full liquid diet and will be advanced to soft diet, anticipate discharge within 24 hours if tolerating. Plan: -DC NG tube -Advance to full liquid diet -General surgery Dr Hastings following, appreciate recommendations -GI Dr Ovalles consulted, appreciate recommendations. -Continue Reglan 10mg q6H after GI evaluation -IV Protonix to continue -Pain medications: IV Morphine #Primary Hypertension #Hyperlipidemia On lisinopril 20 mg daily at home BP 130/80s Plan: - Resumed Lisinopril 10mg daily and atorvastatin 40 mg Health maintenance: DVT prophylaxis: SC Heparin GI prophylaxis: IV Protonix daily Diet: Full liquid Lines: Peripheral IV Code status: Full code Case was discussed with Dr Savage PGY-2 and attending physician, Dr Ruiz Disclaimer: This note was dictated by speech recognition. Minor errors in operations associate may be present due to voice recognition software. n Attending Provider Attestation/Addendum I have examined the patient, reviewed labs and imaging findings, discussed the case with the resident(s), and reviewed entered orders. I agree with the plan of care as outlined in this note, with these additional summaries/recommendations: Patient seen at bedside. No acute overnight events. Patient reports he has now had multiple bowel movements although his abdomen is still distended. Patient was started on laxatives and metoclopramide. Will monitor for improvement with these prokinetic agents. We will advance diet to full liquid with monitor how patient tolerates. General surgery following, recommendations appreciated. Dr. Sara MD
[2024-08-12] MEDS: ATORVASTATIN CALCIUM 20 MG TABLET 40 MG PO (20:12)
[2024-08-13] VITALS: BP 110/72; PULSE 102; PULSE 93; RESP 18; TEMP 36.7; O2SAT 94
[2024-08-13] MEDS: METOCLOPRAMIDE INJ 5 MG/ML VIAL 2 ML 10 MG IVP ×3 (01:12→11:30)
[2024-08-13 04:00] VITALS: BP 127/80; PULSE 101; PULSE 102; RESP 18; TEMP 37; O2SAT 93
[2024-08-13 05:33] LABS: Basophils % (Auto) 1 % (0-2.5); Eosinophils # (Auto) 0.2 Thou/mm3 (0.0-0.5); Eosinophils % (Auto) 3 % (0-10); Hematocrit 42.4 % (41.0-53.0); Immature Granulocytes % (Auto) 1 % (0-0); Immature Granulocytes Auto 0.03 Thou/mm3 (0.00-0.00); Lymphocytes # (Auto) 1.5 Thou/mm3 (1.0-4.8); Lymphocytes % (Auto) 24 % (10-50); Mean Corpuscular Hemoglobin 30.6 pg (25.0-35.0); Mean Corpuscular Volume 93 fL (80-100); Monocytes # (Auto) 0.7 Thou/mm3 (0.0-0.8); Monocytes % (Auto) 12 % (0-12); Neutrophils # (Auto) 3.7 Thou/mm3 (1.8-7.7); Neutrophils % (Auto) 60 % (37-80); Nucleated Red Blood Cell % 0 /100 WBC (0); Platelet Count 181 Thou/mm3 (140-440); RDW Standard Deviation 43.9 fL (35.1-43.9); Red Blood Count 4.57 Miln/mm3 (4.50-5.90); White Blood Count 6.2 Thou/mm3 (3.8-10.6)
[2024-08-13 06:40] LABS: Alanine Aminotransferase 35 U/L (10-49); Albumin, Serum 3.6 gm/dL (3.5-5.0); Albumin/Globulin Ratio 1.8 (1.2-2.2); Alkaline Phosphatase 48 U/L (46-116); Anion Gap 11 (7-16); Aspartate Amino Transferase 23 U/L (0-34); BUN/Creatinine Ratio 15 Ratio (12-20); Bilirubin,Total 0.8 mg/dL (0.3-1.2); Blood Urea Nitrogen 15 mg/dL (9-23); Calcium 8.9 mg/dL (8.3-10.6); Calcium (Corrected) 9.2 mg/dL (8.5-10.1); Carbon Dioxide 25.1 mMol/L (20.0-31.0); Chloride 105 mMol/L (98-107); Estimated Creatinine Clearance 92.1 mL/min (>60); Glucose 93 mg/dL (74-106); Osmolality,Calculated 282 (275-295); Phosphorous 2.7 mg/dL (2.4-5.1); Potassium 3.6 mMol/L (3.4-5.1); Sodium 141 mMol/L (136-145); Total Protein 5.6 gm/dL (5.7-8.2); eGFR > 60 See Note
[2024-08-13 07:34] VITALS: PULSE 95; RESP 18; O2SAT 99
[2024-08-13 08:00] VITALS: BP 115/59; PULSE 107; PULSE 94; RESP 18; TEMP 36.6; O2SAT 94
[2024-08-13 09:06] VITALS: BP 115/59; PULSE 94
[2024-08-13] MEDS: guaiFENesin/DM TABLET 1 EACH PO (09:06)
[2024-08-13] MEDS: TAMSULOSIN HCL 0.4 MG CAPSULE PO (09:06)
[2024-08-13] MEDS: Lisinopril 2.5 MG TABLET 10 MG PO (09:06)
[2024-08-13] MEDS: DOCUSATE SOD 100 MG CAPSULE PO (09:06)
[2024-08-13] MEDS: HEPARIN SOD INJ 5000 UNIT/ML VIAL SC (09:07)
[2024-08-13] MEDS: PANTOPRAZOLE INJ 40 MG VIAL IV (09:07)
[2024-08-13 12:00] VITALS: BP 119/69; PULSE 116; PULSE 90; RESP 21; TEMP 36.9; O2SAT 92
--- NOTE | 2024-08-13 13:31 | PD.SURPROG ---
Documentation for date of: 08/13/24 Subjective Subjective Narrative: Pt is seen and examined. He is feeling much better. He is tolerating diet and having bowel movements. Exam Vital Signs Temp Pulse Resp BP Pulse Ox O2 Del Method O2 Flow Rate 97.8 F 116 H 18 115/59 L 94 L Nasal Cannula 3 08/13/24 08:00 08/13/24 12:00 08/13/24 08:00 08/13/24 09:06 08/13/24 08:00 08/13/24 08:00 08/13/24 08:00 Constitutional Constitutional: no acute distress Routine Abdominal Exam Abdominal: Present soft, normoactive bowel sounds and distended (minimally); Absent tenderness Assessment & Plan Assessment Additional comments: Symptoms are improving Plan May discharge home.
--- NOTE | 2024-08-13 15:25 | ESDS_ITS ---
<Statement entered by Vel Patino MD - 08/13/24 16:11> Patient was examined with the team including attending physician. Note reviewed, I agree with the discharge plan as documented. - Vel Patino M.D. PGY2 Planned Discharge Date 08/13/24 DS: Providers Provider Date of admission: 08/06/24 20:45 Primary care physician: Juan Alberto Castellanos PA-C Admitting Provider: Bola Frank MD Attending Provider on Admission: Boris Washington MD Consults: 08/06/24 17:56 Consult to General Surgery Stat Comment: Small bowel obstruction Consulting Provider: Sariah Hastings 08/10/24 14:59 Consult to Gastroenterology Routine Comment: abdominal pain and distension Consulting Provider: Lina Ovalles Attending Provider on DC: Barry Ruiz MD Discharging Provider: Karissa Burger MD DS: Diagnosis Problem List Completed Was Problem List Reviewed/Reconciled?: Yes Hospital Course Hospital Course Hospital course: The patient is a 58-year-old male with a past medical history of umbilical hernia s/p repair on 06/30/2024, hypertension and hyperlipidemia presented to the ED on 08/06/2024 with abdominal pain, nausea and vomiting. CT abdomen in the ED showed small bowel obstruction and GI was consulted as well as surgery. NGT was inserted for suctioning and the patient had small bowel series. Initially, patient was unable to tolerate the series as he continually was in pain and distended and more suctioning was done. Eventually, small bowel series was done and showed an incomplete obstructive pattern. More drainage was done and the patient was given promotility agents, he started having bowel movements and abdominal distention was resolved as well as pain. Diet was also restarted and patient tolerated well. Today, the patient is clinically and hemodynamically stable and has been medically cleared for discharge. He is recommended to follow-up with his PCP within 1 week of discharge and continue on promotility agents as well as laxatives as needed. He developed new rash on his face which is pruritic in nature, with a dermatitis pattern and Selsun Blue was recommended. #Constipation #Incomplete small bowel obstruction #Status post incisional hernia repair #Hypertension #Hyperlipidemia Discharge instructions: Follow up with your PCP within one week of discharge Use bisacodyl twice daily Take metoclopramide for nausea or vomiting Take milk of magnesium for constipation Take pain medication tramadol as needed for pain You can use Selsun blue for the facial rash Return to the ED if your symptoms worsen Case was discussed with Dr Patino PGY-2 and attending physician, Dr Ruiz Disclaimer: This note was dictated by speech recognition. Minor errors in marketing segment manager may be present due to voice recognition software. Time Spent with Patient Time attestation: Total time spent providing and/or coordinating discharge services: Exam Vital Signs Temp Pulse Resp BP Pulse Ox O2 Del Method O2 Flow Rate 98.5 F 90 21 H 119/69 92 L Room Air 3 08/13/24 12:00 08/13/24 12:00 08/13/24 12:00 08/13/24 12:00 08/13/24 12:08/13/24 12:08/13/24 08:00 Narrative Exam GENERAL: AAOX3 NEURO: MANAGER INVESTMENT grossly intact, moves extremities x4 HEENT: Moist mucosa. Eyes open, symmetrical, & clear CARDIO: No chest pain on palpation. Heart RRR, no obvious murmurs PULM: No noted coughing/dyspnea. Lungs CTA B/L GI: Abdomen soft, nondistended, no pain on palpation. BSx4 URO/CLEAT MAKER:: No further abnormalities noted. SKIN/MSK/EXT: Pruritic rash on face, with scaly dryness noted, including hair area Discharge Plan Plan Patient Disposition: HOME (Self Care) Care Plan Goals: Follow up with your PCP within one week of discharge Use bisacodyl twice daily Take metoclopramide for nausea or vomiting Take milk of magnesium for constipation Take pain medication tramadol as needed for pain You can use Selsun blue for the facial rash Return to the ED if your symptoms worsen Prescriptions/Referrals Prescriptions/Med Rec: New metoclopramide HCl 10 mg tablet 10 mg PO Q6H PRN (Reason: nausea, vomting or constipation) Qty: 30 0RF bisacodyl [Gentle Laxative (bisacodyl)] 5 mg tablet,delayed release (DR/EC) 5 mg PO QDAY 30 Days Qty: 30 0RF magnesium hydroxide [Milk of Magnesia] 400 mg/5 mL suspension 5 ml PO QDAY PRN (Reason: constipation) 30 Days Qty: 3780 0RF rabeprazole 20 mg tablet,delayed release (DR/EC) 20 mg PO QDAY 30 Days Qty: 30 0RF tramadol-acetaminophen 37.5-325 mg tablet 1 tab PO BID PRN (Reason: pain) Qty: 10 0RF Continued lisinopril 20 mg tablet 20 mg PO DAILY Patient Comments: TOME DERREK TABLETA TODOS LOS D atorvastatin 20 mg tablet 20 mg PO DAILY Patient Comments: TOME 1 TABLETA POR V A ORAL TODOS LOS D Held Ozempic 2 mg/dose (8 mg/3 mL) pen injector 2 mg SUBCUT QWEEK Hold Instructions: Resume on 08/27/24. Hold until follow up with PCP Patient Comments: INJECT 2MG SUBCUTANEOUS WEEKLY 30 DAYS Discontinued ibuprofen 600 mg tablet 600 mg PO Q8H PRN (Reason: pain (scale score 4-6)) Qty: 15 0RF docusate sodium [Colace] 100 mg capsule 100 mg PO BID Qty: 40 0RF hydrocodone-acetaminophen 5-325 mg tablet 1 tab PO Q6H MDD 4 PRN (Reason: pain (scale score 7-10)) Qty: 20 0RF Referrals: Juan Alberto Castellanos PA-C [Primary Care Provider] - Patient/Caregiver Discharge Instructions Other Discharge Activity Instructions:: Follow up with your PCP within one week of discharge Use bisacodyl twice daily Take metoclopramide for nausea or vomiting Take milk of magnesium for constipation Take pain medication tramadol as needed for pain Return to the ED if your symptoms worsen Christina un seguimiento con jang PCP dentro de derrek semana del dharmesh Use bisacodilo dos veces al d?a [place] metoclopramida para las n?useas o los v?mitos. Paul leche de magnesio para el estre?imiento. [place] analg?sicos tramadol seg?n sea necesario para el dolor. Regrese al servicio de urgencias si jerry s?ntomas empeoran. Education Materials: Abdominal Pain, Small Bowel Obstruction Print Language: [place] Citizen Stand Alone Forms: [place] Award Info., Patient Portal Info Letter Discharge Order Discharge Orders: Discharge (Routine); Ordered 08/13/24 Ordered By: Karissa Burger Quality Discharge Quality Measures VTE prophylaxis Attestestation MD Attestation I have examined the patient, reviewed labs and imaging findings, discussed the case with the resident(s), and reviewed entered orders. I agree with the plan of care as outlined in this note. Dr. Sara MD
--- NOTE | 2024-08-13 19:45 | PD.IMPROG ---
Documentation for date of: 08/13/24 Subjective Subjective Interval history: Late entry for the note Case discussed with internal medicine team okay to discharge patient home to be followed by the PCP No GI workup necessary as an outpatient Exam Vital Signs Temp Pulse Resp BP Pulse Ox O2 Del Method O2 Flow Rate 98.5 F 90 21 H 119/69 92 L Room Air 3 08/13/24 12:00 08/13/24 12:00 08/13/24 12:00 08/13/24 12:00 08/13/24 12:00 08/13/24 12:00 08/13/24 08:00 Objective Labs 08/13/24 04:33 08/13/24 04:33 Labs: Laboratory Results - last 24 hr 08/13/24 04:33 WBC 6.2 RBC 4.57 Hgb 14.0 Hct 42.4 MCV 93 MCH 30.6 MCHC 33.0 RDW Std Deviation 43.9 Plt Count 181 Neut % (Auto) 60 Lymph % (Auto) 24 [place] % (Auto) 12 Eos % (Auto) 3 Baso % (Auto) 1 Neut # (Auto) 3.7 Lymph # (Auto) 1.5 [place] # (Auto) 0.7 Eos # (Auto) 0.2 Baso # (Auto) 0.0 Immature Gran # (Auto) 0.03 H Absolute Nucleated RBC 0.00 Immature Gran % 1 H Nucleated RBC % 0 Sodium 141 Potassium 3.6 D Chloride 105 Carbon Dioxide 25.1 Anion Gap 11 BUN 15 Creatinine 1.0 Estim Creat Clear Calc 92.1 eGFR > 60 BUN/Creatinine Ratio 15 Glucose 93 Calculated Osmolality 282 Calcium 8.9 Corrected Calcium 9.2 Phosphorus 2.7 Magnesium 2.0 Total Bilirubin 0.8 AST 23 ALT 35 Alkaline Phosphatase 48 Total Protein 5.6 L Albumin 3.6 Globulin 2.0 L Albumin/Globulin Ratio 1.8 Impressions Impression: # Ileus resolved Okay to discharge patient home to be followed by PCP Assessment & Plan A&P Narrative # Ileus with possible small bowel obstruction although not many air-fluid levels Plan and recommendations Keep the patient n.p.o. Continue NG to suction to intermittent suction And IV Reglan 10 mg IV push every 6 Patient should not have Ozempic upon discharge or in the hospital this can have serious side effects GI tract related We will follow the patient Repeat KUB in the morning Other medical problems include #recent repair of the Incarcerated incisional hernia laparoscopically on 06/30/2024 # Essential hypertension # Hyperlipidemia # Diabetes mellitus type Thank you for the opportunity to participate in the care of this patient Time Spent With Patient Time: Total time spent is greater than 50% in coordination of care (as documented) at patient's floor/unit and/or counseling patient:
== END 2024-08-13 14:50 | disposition home or self-care (01) | DRG 247 ==
LOC: SERX 19:24 → SERHOLD 21:15 → S3NX 22:30
PROVIDERS: Internal Medicine; Nurse Practitioner Family; Admitting Provider Internal Medicine; Emergency Provider Emergency Medicine; PCP Physician Assistant; Visit Provider Internal Medicine
DX: K56.51 Intestinal adhesions [bands], with partial obstruction (principal); I10 Essential (primary) hypertension; E78.5 Hyperlipidemia, unspecified; D72.829 Elevated white blood cell count, unspecified; E11.9 Type 2 diabetes mellitus without complications; R12 Heartburn; K56.7 Ileus, unspecified; E66.9 Obesity, unspecified; Z68.41 Body mass index [BMI] 40.0-44.9, adult; R21 Rash and other nonspecific skin eruption; Z79.899 Other long term (current) drug therapy; Z79.4 Long term (current) use of insulin
CPT/HCPCS: 36415; 71045; 74018; 74177; 74250; 80053; 80061; 81001; 83036; 83605; 83615; 83690; 83735; 84100; 84439; 84443; 84484; 85025; 85610; 85730; 87040; 93225; 94762; 96365; 96366; 96375; 96376; 99285; A4649; J0694; J1643; J2270; J2405; J2470; J2765; J3490; J7030; J7050; J7120; Q9963; Q9967; A9270

== ENCOUNTER 2024-11-12 13:47 | Inpatient (IN) | payer MEDICAID, SELFPAY ==
--- NOTE | 2024-11-12 14:17 | XR_ITS ---
Examination: CT abdomen and pelvis without contrast. Coronal 3-D reconstructions. Sagittal 2-D reconstructions. Date and time of exam:November 12, 2024 1545 hours INDICATIONS: Abdominal pain beginning 4:00 AM COMPARISON: August 06, 2024 CTDI: vol (mGy): 11.8 DLP: (mGycm): 8 38 Technique: Axial images of the abdomen have been obtained, 3 mm slice thickness Intravenous contrast material has not been administered. Low dose protocols were performed. One or more of the following dose reduction techniques were used; automated exposure control, adjustment of the mA and/or KV according to patient size, use of iterative reconstruction technique. Findings: Small bilateral pleural effusions No focal liver or splenic lesion Small gallstones No pancreatic or adrenal mass No renal or ureteral calculi, no hydronephrosis No pericecal inflammatory change Fairly prominent fluid distended small bowel loops Localized weakening of the anterior lower abdominal wall, but no incarcerated bowel No prostatomegaly Contracted urinary bladder Severe osteopenia with advanced narrowing L3-L4 L5-S1 discs IMPRESSION: Cholelithiasis Early small bowel obstruction, consider Gastrografin small bowel series follow-up
--- NOTE | 2024-11-12 14:18 | PD.EDRME ---
Rapid Medical Screening Exam RME Arrival date/time: 11/12/24 13:47 59-year-old male with a history of hyperlipidemia, hypertension presents to the emergency room with a chief complaint of abdominal pain and distention x 3 days. Patient states he was admitted for small bowel obstruction back in July and his symptoms feel the same. I have greeted and performed a focused initial assessment of this patient. A comprehensive ED assessment and evaluation of the patient, analysis of all test results, and completion of the medical decision making process will be conducted by additional ED providers. Chief Complaint: Abdominal Pain Time Seen by Provider: 11/12/24 14:16 Vital signs reviewed by provider: Yes
[2024-11-12 14:19] VITALS: BP 121/85; PULSE 77; RESP 18; TEMP 36.9; O2SAT 95; BMI 39.9
[2024-11-12] MEDS: HYDROcodone/APAP 5/325 TABLET 1 TAB PO (14:36)
[2024-11-12] MEDS: ONDANSETRON ODT 4 MG TABRAP PO (14:36)
[2024-11-12 14:38] LABS: Basophils % (Auto) 0 % (0-2.5); Eosinophils # (Auto) 0.1 Thou/mm3 (0.0-0.5); Eosinophils % (Auto) 1 % (0-10); Hematocrit 46.7 % (41.0-53.0); Hemoglobin 16.2 g/dL (13.5-16.0); Immature Granulocytes % (Auto) 0 % (0-0); Immature Granulocytes Auto 0.02 Thou/mm3 (0.00-0.00); Lymphocytes # (Auto) 3.1 Thou/mm3 (1.0-4.8); Lymphocytes % (Auto) 37 % (10-50); Mean Corpuscular HGB Conc 34.7 g/dl (31.0-37.0); Mean Corpuscular Hemoglobin 30.4 pg (25.0-35.0); Mean Corpuscular Volume 88 fL (80-100); Monocytes # (Auto) 0.6 Thou/mm3 (0.0-0.8); Monocytes % (Auto) 8 % (0-12); Neutrophils # (Auto) 4.5 Thou/mm3 (1.8-7.7); Neutrophils % (Auto) 54 % (37-80); Nucleated Red Blood Cell % 0 /100 WBC (0); Platelet Count 236 Thou/mm3 (140-440); RDW Standard Deviation 42.5 fL (35.1-43.9); Red Blood Count 5.33 Miln/mm3 (4.50-5.90); White Blood Count 8.3 Thou/mm3 (3.8-10.6)
[2024-11-12 14:56] LABS: Alanine Aminotransferase 35 U/L (10-49); Albumin, Serum 4.2 gm/dL (3.5-5.0); Albumin/Globulin Ratio 1.8 (1.2-2.2); Alkaline Phosphatase 59 U/L (46-116); Anion Gap 11 (7-16); Aspartate Amino Transferase 28 U/L (0-34); BUN/Creatinine Ratio 11 Ratio (12-20); Bilirubin,Total 1.2 mg/dL (0.3-1.2); Blood Urea Nitrogen 11 mg/dL (9-23); Calcium 8.8 mg/dL (8.3-10.6); Calcium (Corrected) 8.8 mg/dL (8.5-10.1); Carbon Dioxide 24.4 mMol/L (20.0-31.0); Chloride 106 mMol/L (98-107); Estimated Creatinine Clearance 90.5 mL/min (>60); Globulin 2.3 gm/dL (2.3-3.5); Glucose 112 mg/dL (74-106); Lipase 26 U/L (12-53); Osmolality,Calculated 281 (275-295); Potassium 4.2 mMol/L (3.4-5.1); Sodium 141 mMol/L (136-145); Total Protein 6.5 gm/dL (5.7-8.2); eGFR > 60 See Note
[2024-11-12 15:17] LABS: Collection Type, Urine Clean Catch
[2024-11-12 15:35] LABS: Bilirubin,Urine Negative (Negative); Blood,Urine Negative (Negative); Clarity,Urine Clear (Clear/Hazy); Color,Urine Yellow (Lt Yel-Yel); Glucose, Urine Negative (Negative); Hyaline Casts,Urine < 1 /hpf (0-1); Ketones,Urine Trace (Negative); Leukocyte Esterase,Urine Negative (Negative); Nitrite,Urine Negative (Negative); PH,Urine 6.5 (5.0-7.0); Protein,Urine 1+ (Neg - Trace); RBC,Urine 3 /hpf (0-3); Specific Gravity,Urine 1.035 (1.001-1.035); Squamous Epithelial Cell,Urine 2 /hpf (0-5); WBC,Urine 2 /hpf (0-5)
--- NOTE | 2024-11-12 17:47 | PD.EDABDPN ---
ED Abdominal Pain RME/HPI General Chief Complaint: Abdominal Pain Stated complaint: ABD PAIN Time seen by provider: 11/12/24 14:16 Arrival date/time: 11/12/24 13:47 RME / HPI RME / HPI narrative: 59-year-old male with a history of hyperlipidemia, hypertension presents to the emergency room with a chief complaint of abdominal pain and distention x 3 days. Patient states he was admitted for small bowel obstruction back in July and his symptoms feel the same. Patient also complained of nausea and dry heaving. Denies any fever denies any other complaints last bowel movement earlier today but very small one. History of hernia repair last June. Related Data Home Medications ?Medication ?Instructions ?Recorded ?Confirmed atorvastatin 20 mg tablet 20 mg PO DAILY 06/26/24 08/07/24 lisinopril 20 mg tablet 20 mg PO DAILY 06/26/24 08/07/24 semaglutide 2 mg/dose (8 mg/3 mL) 2 mg subcut QWEEK 06/26/24 08/07/24 subcutaneous pen injector (Ozempic) Held on 08/13/24. Instructions: Resume on 08/27/24. Hold until follow up with PCP Previous Rx's ?Medication ?Instructions ?Recorded metoclopramide HCl 10 mg tablet 10 mg PO Q6H PRN nausea, vomting 08/13/24 or constipation #30 tabs tramadol 37.5 mg-acetaminophen 325 1 tab PO BID PRN pain #10 tabs 08/13/24 mg tablet Allergies Allergy/AdvReac Type Severity Reaction Status Date / Time No Known Allergies Allergy Verified 08/06/24 12:43 Review of Systems Review of Systems Narrative Review of Systems: Review of system reviewed and within normal limits except mentioned in HPI ED Exam Narrative Physical exam: VITAL SIGNS: Reviewed. GENERAL APPEARANCE: Alert and interactive, follows commands, no acute distress, HEAD AND FACE: Non-traumatic. ENT: PERRL, pink conjunctivitis, eyelid no trauma, Mucous membrane moist. NECK: Supple, nontender, no nuchal rigidity. CHEST: No tenderness, no crepitus, no paradoxical movement, no retractions. LUNGS: Clear, well ventilated, symmetric, no rales, no wheezing, no ronchi, no stridor, good breath sounds bilaterally. HEART: Regular rate, regular rhythm, no murmur, no gallops. ABDOMEN: Soft, hyperactive bowel sounds, distended, no guarding, diffuse tenderness, no rebound, no masses, RECTAL: Deferred. GENITAL: Deferred. NEUROLOGICAL: Gross motor function intact sensory function intact, Appropriate for age. MUSCULOSKELETAL: low back nontender, full range of motion. EXTREMITIES: Nontender, full range of motion. SKIN: Color pink, dry, no rash, no lacerations, no abrasions, no contusions. LYMPHATICS: Deferred. Course Quality Measures none Orders Category Date Time Status COVID-19 Screening Questionnaire NOW Care 11/12/24 20:39 Active Decision to Admit X1 Care 11/12/24 20:39 Active Insert NG / OG tube NOW Care 11/12/24 19:56 Active NG / OG Tube to LIS NOW Care 11/12/24 19:[address] abdomen pelvis wo con Stat Exams 11/12/24 14:17 Completed XR chest 1V post procedure Stat Exams 11/12/24 20:20 Ordered CBC Stat Lab 11/12/24 14:31 Completed CMP [Comprehensive Metabolic Panel] Stat Lab 11/12/24 14:31 Completed Lipase Stat Lab 11/12/24 14:31 Completed UA [Urinalysis] Stat Lab 11/12/24 15:11 Completed Urine Culture Stat Lab 11/12/24 15:11 Received HYDROcodone*/APAP 5/325 [[place] 5/325] Med 11/12/24 14:17 Discontinued 1 tab PO X1 ONE Morphine Inj Med 11/12/24 18:26 Discontinued 4 mg IVP X1 ONE Morphine Inj Med 11/12/24 19:19 Discontinued 4 mg IVP X1 ONE Ondansetron Inj [Zofran Inj] Med 11/12/24 18:26 Discontinued 4 mg IVP X1 ONE Ondansetron Odt [Zofran Odt] Med 11/12/24 14:17 Discontinued 4 mg PO X1 ONE Sodium Chloride 0.9% 1000 ml [Ns] 1,000 ml Med 11/12/24 18:26 Discontinued IV 999 mls/hr Vital Signs Vital signs: Vital Signs Temperature 98.4 F 11/12/24 14:19 Pulse Rate 77 11/12/24 14:19 Respiratory Rate 18 11/12/24 14:19 Blood Pressure 121/85 H 11/12/24 14:19 Pulse Oximetry (%) 95 11/12/24 14:19 Oxygen Delivery Method Room Air 11/12/24 14:19 Abdominal Pain MDM MDM Narrative MDM Narrative:: 59-year-old male with a history of hyperlipidemia, hypertension presents to the emergency room with a chief complaint of abdominal pain and distention x 3 days. Patient states he was admitted for small bowel obstruction back in July and his symptoms feel the same. Patient also complained of nausea and dry heaving. Denies any fever denies any other complaints last bowel movement earlier today but very small one. History of hernia repair last June. CBC came back unremarkable. No leukocytosis noted. CMP no acute pathology, urinalysis no UTI CT scan of the abdomen pelvis showed Cholelithiasis Early small bowel obstruction, consider Gastrografin small bowel series follow-up NG tube was inserted and attached to low suction intermittent Patient received IV fluids morphine Zofran Patient data External records reviewed:: None Clinical information provided by:: patient Social determinants that could affect healthcare access:: none Patient has the following chronic illnesses:: History of small bowel obstruction How is presenting disease/condition affected by chronic disease/condition?: exacerbated by Evaluation data The following diagnostics were reviewed and interpreted by me:: radiology exam(s) Lab and/or radiology exams considered but not ordered:: None Interpretation Summary: See results MDM Medications / Prescriptions Medications or Prescriptions considered but not ordered:: None Medication administrations:: Medication Administration History Discontinued Medications Hydrocodone Bitart/Acetaminophen (Hydrocodone/Apap 5/325 Tablet) 1 tab PO X1 ONE Stop: 11/12/24 14:18 Last Admin: 11/12/24 14:36 Dose: 1 tab Documented By: Sodium Chloride (Ns) 1,000 mls @ 999 mls/hr IV .Q1H1M ONE Stop: 11/12/24 19:26 Last Infusion: 11/12/24 20:07 Dose: Infused Documented By: Admin: 11/12/24 18:46 Dose: 999 mls/hr Documented By: MIRZA Morphine Sulfate (Morphine Sulf Inj 10 Mg/Ml Vial) 4 mg IVP X1 ONE Stop: 11/12/24 18:27 Last Admin: 11/12/24 18:45 Dose: 4 mg Documented By: MIRZA Morphine Sulfate (Morphine Sulf Inj 10 Mg/Ml Vial) 4 mg IVP X1 ONE Stop: 11/12/24 19:20 Last Admin: 11/12/24 19:38 Dose: 4 mg Documented By: BD Ondansetron HCl (Ondansetron Odt 4 Mg Tabrap) 4 mg PO X1 ONE; Protocol Stop: 11/12/24 14:18 Last Admin: 11/12/24 14:36 Dose: 4 mg Documented By: Ondansetron HCl (Ondansetron Inj 2 Mg/Ml Inj 2 Ml) 4 mg IVP X1 ONE; Protocol Stop: 11/12/24 18:27 Last Admin: 11/12/24 18:45 Dose: 4 mg Documented By: MM IV fluids morphine Zofran and [place] Consultations Consultation(s) initiated? (list below): No Diagnosis Differential diagnosis abdominal pain: abdominal pain, constipation and small bowel obstruction Most likely diagnosis given after review of the tests above:: Small bowel obstruction, cholelithiasis Admission Indicated Admission indicated?: indicated Explain why admission is indicated or not indicated:: Patient is to be admitted for further management Admission Request Was there a request for admission?: Yes Admission Attestation Admission request attestation: Discussed case with [Dr. Shaw] from Hospitalist service regarding admission. Discussed patients ED course, exam findings, labs, and radiology results. The Hospitalist [agrees] to accept the patient for admission. Disposition Plan Disposition Plan: Admit Discharge Plan Plan Patient Disposition: Admit Acute Care w/in Hospital Discharge Disposition comment: Stable Prescriptions/Referrals Prescriptions/Med Rec: No Action metoclopramide HCl 10 mg tablet 10 mg PO Q6H PRN (Reason: nausea, vomting or constipation) Qty: 30 0RF tramadol-acetaminophen 37.5-325 mg tablet 1 tab PO BID PRN (Reason: pain) Qty: 10 0RF lisinopril 20 mg tablet 20 mg PO DAILY Patient Comments: TOME ELSIE TABLETA TODOS LOS D Ozempic 2 mg/dose (8 mg/3 mL) pen injector 2 mg SUBCUT QWEEK Patient Comments: INJECT 2MG SUBCUTANEOUS WEEKLY 30 DAYS atorvastatin 20 mg tablet 20 mg PO DAILY Patient Comments: TOME 1 TABLETA POR V A ORAL TODOS LOS D Referrals: No Primary/Family,Physician [Primary Care Provider] - In 1 week Problem List Clinical Impression: Abdominal pain, Small bowel obstruction Patient/Caregiver Discharge Instructions Print Language: Chinese Stand Alone Forms: [place] Award Info., Patient Portal Info Letter
[2024-11-12 17:55] VITALS: BP 163/87; PULSE 67; RESP 16; TEMP 36.8; O2SAT 98
[2024-11-12] MEDS: ONDANSETRON INJ 2 MG/ML INJ 2 ML 4 MG IVP (18:45)
[2024-11-12] MEDS: MORPHINE SULF INJ 10 MG/ML VIAL 4 MG IVP ×2 (18:45→19:38)
[2024-11-12] MEDS: SODIUM CHLORIDE 0.9% 1000 ML 1,000 ML 999 ML IV (18:46)
[2024-11-12 19:54] VITALS: BP 141/83; PULSE 69; RESP 19; TEMP 37; O2SAT 96
--- NOTE | 2024-11-12 20:20 | XR_ITS ---
Examination: AP chest single view TECHNIQUE: AP portable sitting chest single view Date and time: November 12, 20242053 hours Comparison August 07, 2024 INDICATIONS: Post orogastric tube placement FINDINGS: Orogastric tube in the stomach satisfactory position Normal heart size Atelectasis left lower lobe IMPRESSION: Orogastric tube in the stomach satisfactory position
[2024-11-12 21:59] VITALS: BP 157/87; PULSE 70; RESP 19; TEMP 37.1; O2SAT 96
--- NOTE | 2024-11-12 22:26 | XR_ITS ---
Examination: Small bowel series with KUBs AP supine abdomen 5 views Date and time: November 12, 2024 10:37 AM INDICATIONS: Abdominal distention this week TECHNIQUE AND FINDINGS: Patient received 120 cc Gastrografin through the orogastric tube Immediate 3 minute and 1 hour films show contrast remaining in the stomach IMPRESSION: Recommend follow-up films midnight 6:00 AM
[2024-11-12 22:36] VITALS: PULSE 69; RESP 16; RESP 92
[2024-11-12] MEDS: RINGERS LACTATED 1000 ML 1,000 ML 75 ML IV (22:39)
[2024-11-12 23:18] LABS: Lactate (Lactic Acid) 1.3 mMol/L (0.4-2.0)
--- NOTE | 2024-11-12 23:18 | ESHP_ITS ---
<Statement entered by Carrington Rich MD - 11/13/24 12:45> I have discussed and was present for the essential components of the history, physical examination, diagnosis, and treatment plan with the resident. I agree with the patient's care as documented by the resident and amended herein by me. Carrington Rich MD FACP. Documentation for date of: 11/12/24 HPI History of Present Illness History of present illness: 58-year-old male with past medical history of umbilical hernia s/p repair on 06/30/2024, history of multiple abdominal surgeries, history of hypertension, hyperlipidemia, recent history of SBO, followed outpatient by Dr. Hastings presented to ED with chief complaints of abdominal pain and nausea. Patient stated that pain started about 6 days ago, and he was constantly nauseous. However pain continues to worsen at the point that it was intolerable. Patient stated that he made a call to Dr Hastings office to follow-up outpatient however make an early appointment. Upon presentation patient was hemodynamically stable, however was complaining of severe abdominal pain. Patient stated that that small bowel movement today morning, denied any blood in it. CBC revealed mild polycythemia with hemoglobin of 16.2 most likely secondary to dehydration, CMP unremarkable. In ED patient was given IVF along with Zofran and morphine to relieve pain, abdomen/pelvis CT revealed early small bowel obstruction. NG tube was placed and patient was admitted for management of SBO, bowel decompression and Gastrografin serial test. PMH COMMENT: PMH: Positive for umbilical hernia status post repair, hypertension and hyperlipidemia PSHx: Exploratory laparotomy, closure of the perforation the sigmoid colon, incidental appendectomy (2021) Laparoscopic assisted repair of incarcerated incisional hernia with mesh (06/30/2024) Allergies: No known allergies Social history: -Smoking: Denies -Alcohol Use: Denies -Illicit Drug Use: Denies Family History: Denies pertinent family history Review of Systems Review of Systems Systems Reviewed: All systems reviewed, normal except as documented Past Medical History Surgical History OTHER SURGICAL HX: Essential hypertension hyperlipidemia On Ozempic Exam Vital Signs Temp Pulse Resp BP Pulse Ox O2 Del Method 98.7 F 69 16 157/87 H 96 Room Air 11/12/24 21:59 11/12/24 22:36 11/12/24 22:36 11/12/24 21:59 11/12/24 21:59 11/12/24 21:59 Narrative Exam GENERAL: no acute distress, AAO x3, well nourished. HEENT: Head AT/ NC. Mucous membranes moist. PERRL. NECK: Supple, no lymphadenopathy, no carotid bruits. CARDIOVASCULAR: RRR. Normal S1/S2, No m/r/g. RESPIRATORY: CTAB. No wheezing, rhonchi, crackles. GASTROINTESTINAL: Abdomen soft, mild tenderness, distended, no signs of acute abdomen, postsurgical scars were noted. no palpable masses. Bowel sounds present, but decreased in all 4 quadrants. MUSCULOSKELETAL:? No cyanosis or edema, no visible joint swelling. NEUROLOGICAL: CN II-XII grossly intact. No focal deficits. Sensation intact, symmetric. PSYCHIATRIC: Awake and alert, not agitated, normal mood and affect. Results: Labs 11/12/24 14:31 11/12/24 14:31 Labs: Short CBC 11/12/24 Range/Units 14:31 WBC 8.3 (3.8-10.6) Thou/mm3 Hgb 16.2 H (13.5-16.0) g/dL Hct 46.7 (41.0-53.0) % Plt Count 236 (140-440) Thou/mm3 BMP 11/12/24 14:31 Sodium 141 Potassium 4.2 Chloride 106 Carbon Dioxide 24.4 BUN 11 Creatinine 1.0 Glucose 112 H Calcium 8.8 Liver Function 11/12/24 Range/Units 14:31 Total Bilirubin 1.2 (0.3-1.2) mg/dL AST 28 (0-34) U/L ALT 35 (10-49) U/L Alkaline Phosphatase 59 (46-116) U/L Albumin 4.2 (3.5-5.0) gm/dL Urine 11/12/24 Range/Units 15:11 Urine Color Yellow (Lt Yel-Yel) Urine Clarity Clear (Clear/Hazy) Urine pH 6.5 (5.0-7.0) Ur Specific [place] 1.035 (1.001-1.035) Urine Protein 1+ A (Neg - Trace) Urine Glucose (UA) Negative (Negative) Quality Measures Quality Measures none Medications Home Medications and Allergies Home Medications ?Medication ?Instructions ?Recorded ?Confirmed ?Type atorvastatin 20 mg tablet 20 mg PO DAILY 06/26/2407/25 History lisinopril 20 mg tablet 20 mg PO DAILY 06/26/2407/25 History semaglutide 2 mg/dose (8 mg/3 mL) 2 mg subcut QWEEK 08/07/24 History subcutaneous pen injector (Ozempic) Held on 08/13/24. Instructions: Resume on 08/27/24. Hold until follow up with PCP Allergies Allergy/AdvReac Type Severity Reaction Status Date / Time No Known Allergies Allergy Verified 08/06/24 12:43 Visit Medications Acetaminophen (Acetaminophen 325 Mg Tablet) 650 mg PO Q6H PRN PRN Reason: PAIN 1-3 OR FEVER > 101 Stop: 12/12/24 22:17 Heparin Sodium (Porcine) (Heparin Sod Inj 5000 Unit/Ml Vial) 5,000 unit SC Q8HR [facility] Stop: 11/27/24 05:59 Lactated Ringer's (Lactated Ringers) 1,000 mls @ 75 mls/hr IV .[id number] PAPI Stop: 12/12/24 22:29 Last Admin: 11/12/24 22:39 Dose: 75 mls/hr Morphine Sulfate (Morphine Sulf Inj 10 Mg/Ml Vial) 2 mg IVP Q4H PRN PRN Reason: PAIN SCALE 7-10 (Severe Stop: 11/17/24 22:17 Ondansetron HCl (Ondansetron Inj 2 Mg/Ml Inj 2 Ml) 4 mg IVP Q6H PRN; Protocol PRN Reason: NAUSEA OR VOMITING Stop: 12/12/24 22:17 Oxycodone/Acetaminophen (Oxycodone/Apap 5/325 Tablet) 1 tab PO Q6H PRN PRN Reason: PAIN SCALE 4-6 (Moderate Stop: 11/17/24 22:17 Pantoprazole Sodium (Pantoprazole Inj 40 Mg Vial) 40 mg IVP QDAY PAPI Stop: 12/13/24 08:59 Discontinued Medications Hydrocodone Bitart/Acetaminophen (Hydrocodone/Apap 5/325 Tablet) 1 tab PO X1 ONE Stop: 11/12/24 14:18 Last Admin: 11/12/24 14:36 Dose: 1 tab Sodium Chloride (Ns) 1,000 mls @ 999 mls/hr IV .Q1H1M ONE Stop: 11/12/24 19:26 Last Infusion: 11/12/24 20:07 Dose: Infused Morphine Sulfate (Morphine Sulf Inj 10 Mg/Ml Vial) 4 mg IVP X1 ONE Stop: 11/12/24 18:27 Last Admin: 11/12/24 18:45 Dose: 4 mg Morphine Sulfate (Morphine Sulf Inj 10 Mg/Ml Vial) 4 mg IVP X1 ONE Stop: 11/12/24 19:20 Last Admin: 11/12/24 19:38 Dose: 4 mg Ondansetron HCl (Ondansetron Odt 4 Mg Tabrap) 4 mg PO X1 ONE; Protocol Stop: 11/12/24 14:18 Last Admin: 11/12/24 14:36 Dose: 4 mg Ondansetron HCl (Ondansetron Inj 2 Mg/Ml Inj 2 Ml) 4 mg IVP X1 ONE; Protocol Stop: 11/12/24 18:27 Last Admin: 11/12/24 18:45 Dose: 4 mg Assessment & Plan Plan 58-year-old Portuguese-speaking male with past medical history of umbilical hernia s/p repair, hypertension, hyperlipidemia, history of multiple abdominal surgeries was admitted for small bowel obstruction treatment and management. #Early small bowel obstruction History of status post laparoscopic repair of incarcerated incisional hernia with mesh on 06/30/[address] Hastings, came in with chief complaints of abdominal pain nausea that was progressively getting worse. CT abdomen revealed early small bowel obstruction had BM today mornin, (small amount) ? MedSurg ? IVF ? Zofran as needed ? Pain control as needed ? NG tube with low intermittent suction ? N.p.o. ? General Surgery consulted, recommendations appreciated #Polycythemia Hemoglobin is elevated, most likely secondary to dehydration ? IVF ? Daily CBC #History of hypertension #History of hyperlipidemia ? Currently vitals are stable, pending medication recs ? Patient is n.p.o., reconcile home meds as indicated Disposition:medsurge DVT prophylaxis: heparin GI prophylaxis: PPI Diet: NPO Lines: PIV, NG, CODE STATUS:Full code Patient care was discussed with attending physician Dr. Hilario Kulkarni MD PGY-2 I have carefully reviewed this document. Due to imperfections in the voice software, there could be grammatical errors including phonetic/typographic errors. This in no way compromises the medical care the patient is receiving
[2024-11-12 23:39] VITALS: PULSE 69; RESP 19; RESP 93
--- NOTE | 2024-11-12 23:55 | PC.NURSE ---
TRIED TO CALL REPORT NURSE BUSY
[2024-11-13] VITALS (7 sets, daily range): BP systolic 119–153; BP diastolic 77–96; PULSE 62–80; RESP 15–92; TEMP 36.4–37.2; O2SAT 94–98; BMI 40.7
[2024-11-13] MEDS: MORPHINE SULF INJ 10 MG/ML VIAL 2 MG IVP (00:56)
--- NOTE | 2024-11-13 02:00 | XR_ITS ---
Examination: Abdomen AP single view Technique: AP portable supine abdomen, single view Exam date and time: November 13, 2024 and 0222 hours INDICATIONS: Abdominal distention this week, 3 hour delayed film for small bowel series. FINDINGS: Contrast in distended small bowel loops in the right abdomen IMPRESSION: Distended small bowel loops in the right abdomen Recommend follow-up abdomen films 6:00 AM
--- NOTE | 2024-11-13 05:00 | XR_ITS ---
Examination: Abdomen AP single view Technique: AP portable supine abdomen, single view Exam date and time: November 13, 2024 0444 hours INDICATIONS: Abdominal distention this region, early small bowel obstruction pattern on CT abdomen and pelvis November 12, 2024, 6 hour delayed film for small bowel series FINDINGS: Contrast primarily in the stomach IMPRESSION: Contrast primarily in the stomach, recommend follow-up abdomen film 7:00 AM
[2024-11-13] MEDS: HEPARIN SOD INJ 5000 UNIT/ML VIAL SC ×3 (05:37→20:38)
--- NOTE | 2024-11-13 05:55 | PC.NURSE ---
Unable to do medication reconciliation due to patient does not have a list or did not bring prescription bottles and according to Pt, no one else has access to his home except him.
[2024-11-13 05:57] LABS: Basophils % (Auto) 1 % (0-2.5); Eosinophils # (Auto) 0.1 Thou/mm3 (0.0-0.5); Eosinophils % (Auto) 2 % (0-10); Hematocrit 45.3 % (41.0-53.0); Hemoglobin 15.1 g/dL (13.5-16.0); Immature Granulocytes % (Auto) 0 % (0-0); Immature Granulocytes Auto 0.01 Thou/mm3 (0.00-0.00); Lymphocytes # (Auto) 1.8 Thou/mm3 (1.0-4.8); Lymphocytes % (Auto) 33 % (10-50); Mean Corpuscular HGB Conc 33.3 g/dl (31.0-37.0); Mean Corpuscular Hemoglobin 30.1 pg (25.0-35.0); Mean Corpuscular Volume 90 fL (80-100); Monocytes # (Auto) 0.6 Thou/mm3 (0.0-0.8); Monocytes % (Auto) 10 % (0-12); Neutrophils % (Auto) 54 % (37-80); Nucleated Red Blood Cell % 0 /100 WBC (0); Platelet Count 202 Thou/mm3 (140-440); RDW Standard Deviation 43.8 fL (35.1-43.9); Red Blood Count 5.02 Miln/mm3 (4.50-5.90); White Blood Count 5.6 Thou/mm3 (3.8-10.6)
[2024-11-13 06:36] LABS: Alanine Aminotransferase 30 U/L (10-49); Albumin, Serum 3.6 gm/dL (3.5-5.0); Albumin/Globulin Ratio 1.7 (1.2-2.2); Alkaline Phosphatase 54 U/L (46-116); Anion Gap 10 (7-16); Aspartate Amino Transferase 23 U/L (0-34); BUN/Creatinine Ratio 11 Ratio (12-20); Bilirubin,Total 1.4 mg/dL (0.3-1.2); Blood Urea Nitrogen 10 mg/dL (9-23); Calcium 8.2 mg/dL (8.3-10.6); Calcium (Corrected) 8.5 mg/dL (8.5-10.1); Carbon Dioxide 23.4 mMol/L (20.0-31.0); Cardiac Risk Estimate 3.6 RATIO (4.0-6.7); Chloride 108 mMol/L (98-107); Cholesterol 133 mg/dL (132-200); Creatinine (Component) 0.9 mg/dL (0.6-1.3); Estimated Creatinine Clearance 101.7 mL/min (>60); Globulin 2.1 gm/dL (2.3-3.5); Glucose 106 mg/dL (74-106); HDL Cholesterol 37 mg/dL (40-60); LDL Cholesterol,Calculated 69 mg/dL (0-130); Magnesium 2.1 mg/dL (1.6-2.6); Osmolality,Calculated 280 (275-295); Potassium 4.2 mMol/L (3.4-5.1); Sodium 141 mMol/L (136-145); Total Protein 5.7 gm/dL (5.7-8.2); Triglycerides 136 mg/dL (30-150); eGFR > 60 See Note
--- NOTE | 2024-11-13 08:00 | XR_ITS ---
Examination: Abdomen AP single view Technique: AP portable supine abdomen, single view Exam date and time: November 13, 2024 0757 hours INDICATIONS: Abdominal pain and distention this week, 10 hour delayed film post small bowel series FINDINGS: Contrast in the colon IMPRESSION: Negative for small bowel obstruction, no further films are needed
[2024-11-13] MEDS: PANTOPRAZOLE INJ 40 MG VIAL IVP (09:00)
[2024-11-13] MEDS: METOCLOPRAMIDE INJ 5 MG/ML VIAL 2 ML 10 MG IVP ×4 (09:00→23:51)
[2024-11-13] MEDS: ONDANSETRON INJ 2 MG/ML INJ 2 ML 4 MG IVP (09:05)
--- NOTE | 2024-11-13 11:59 | PD.SURCONS ---
HPI Consult details Consult date: 11/13/24 Reason for consultation narrative: Small bowel obstruction History of present illness: 59-year-old obese male with history of hypertension, diabetes and hyperlipidemia had underwent laparoscopic assisted incisional hernia repair with mesh about 4 months ago. Initially he did well postoperatively. He was admitted to the hospital about 3 months ago for small bowel obstruction that was managed conservatively. Since yesterday he started developing abdominal pain with distention associated with nausea and vomiting. A CT scan was obtained that revealed dilated loops of small bowel concerning for small bowel obstruction. An NG tube was placed and patient was admitted for further management. His NG tube has been clamped to obtain small bowel series that did not show evidence of bowel obstruction Meds Home Medications and Allergies Home Medications ?Medication ?Instructions ?Recorded ?Confirmed ?Type atorvastatin 20 mg tablet 20 mg PO DAILY 06/26/24 11/13/24 History lisinopril 20 mg tablet 20 mg PO DAILY 06/26/24 11/13/24 History metoclopramide HCl 10 mg tablet 5 mg PO BID 11/13/24 11/13/24 History rabeprazole 20 mg tablet,delayed 20 mg PO .COMPLEX 11/13/24 11/13/24 History release tirzepatide (weight loss) 2.5 2.5 mg subcut .week 11/13/24 11/13/24 History mg/0.5 mL subcutaneous pen injector (Zepbound) Allergies Allergy/AdvReac Type Severity Reaction Status Date / Time No Known Allergies Allergy Verified 08/06/24 12:43 Exam Vital Signs Temp Pulse Resp BP Pulse Ox O2 Del Method 98.7 F 77 18 141/96 H 98 Room Air 11/13/24 08:00 11/13/24 08:00 11/13/24 08:00 11/13/24 08:00 11/13/24 08:00 11/13/24 04:00 Constitutional Constitutional: no acute distress Routine Abdominal Exam Comments: Abdomen is soft and mildly distended. He has tenderness to palpation throughout the abdomen, no rebound tenderness or peritonitis. Assessment & Plan Additional Assessment Additional comments: Small bowel obstruction resolving Plan DC NG tube. Start patient on clear liquids and advance as tolerated. He can be discharged when tolerating soft diet and having bowel movements
[2024-11-13] MEDS: LACTULOSE SYRUP 20 GM/30 ML UDC 30 GM PO (13:16)
--- NOTE | 2024-11-13 13:51 | ESPR_ITS ---
Documentation for date of: 11/13/24 Subjective Subjective Interval history: Patient seen today at the bedside found awake, alert, orientedx3. No overnight events reported. Vitals and labs reviewed. SBO seems to have resolved will dc NGT and start the patient on CLD and will advance as tolerated. Will be discharged when tolerating soft foods per surgery reccs. Exam Vital Signs Temp Pulse Resp BP Pulse Ox O2 Del Method 98.9 F 68 17 153/90 H 97 Room Air 11/13/24 12:00 11/13/24 12:00 11/13/24 12:00 11/13/24 12:00 11/13/24 12:00 11/13/24 04:00 Narrative Exam Physical Exam GENERAL: NAD, AAOx3 HEENT: Moist mucosa. Eyes open, symmetrical, & clear CARDIO: Heart RRR, no obvious murmurs PULM: No noted coughing/dyspnea CTA B/L, no R/W/R GI: Abdomen soft, nondistended, no pain on palpation. many surgical scars old healing SKIN/MSK/EXT: No wounds/rashes/edema/amputations, no pain on palpation. Pedal pulses present B/L NEURO: AAOx3, no focal neuro deficits, able to move all 4 extremities Objective Labs 11/14/24 05:25 11/14/24 05:25 Labs: Laboratory Results - last 24 hr 11/12/24 11/12/24 11/12/24 14:31 15:11 22:50 WBC 8.3 RBC 5.33 Hgb 16.2 H Hct 46.7 MCV 88 MCH 30.4 MCHC 34.7 RDW Std Deviation 42.5 Plt Count 236 Neut % (Auto) 54 Lymph % (Auto) 37 [place] % (Auto) 8 Eos % (Auto) 1 Baso % (Auto) 0 Neut # (Auto) 4.5 Lymph # (Auto) 3.1 [place] # (Auto) 0.6 Eos # (Auto) 0.1 Baso # (Auto) 0.0 Immature Gran # (Auto) 0.02 H Absolute Nucleated RBC 0.00 Immature Gran % 0 Nucleated RBC % 0 Sodium 141 Potassium 4.2 Chloride 106 Carbon Dioxide 24.4 Anion Gap 11 BUN 11 Creatinine 1.0 Estim Creat Clear Calc 90.5 eGFR > 60 BUN/Creatinine Ratio 11 L Glucose 112 H Calculated Osmolality 281 Lactic Acid 1.3 Calcium 8.8 Corrected Calcium 8.8 Magnesium Total Bilirubin 1.2 AST 28 ALT 35 Alkaline Phosphatase 59 Total Protein 6.5 Albumin 4.2 Globulin 2.3 Albumin/Globulin Ratio 1.8 Triglycerides Cholesterol LDL Cholesterol, Calc HDL Cholesterol Cholesterol/HDL Ratio Lipase 26 Ur Collection Type Clean Catch Urine Color Yellow Urine Clarity Clear Urine pH 6.5 Ur Specific [place] 1.035 Urine Protein 1+ A Urine Glucose (UA) Negative Urine Ketones Trace Urine Blood Negative Urine Nitrite Negative Urine Bilirubin Negative Urine Urobilinogen (Auto) 2.0 Ur Leukocyte Esterase Negative Urine RBC 3 Urine WBC 2 Ur Squamous Epith Cells 2 Urine Bacteria None Hyaline Casts < 1 11/13/24 05:21 WBC 5.6 RBC 5.02 Hgb 15.1 Hct 45.3 MCV 90 MCH 30.1 MCHC 33.3 RDW Std Deviation 43.8 Plt Count 202 D Neut % (Auto) 54 Lymph % (Auto) 33 [place] % (Auto) 10 Eos % (Auto) 2 Baso % (Auto) 1 Neut # (Auto) 3.0 Lymph # (Auto) 1.8 [place] # (Auto) 0.6 Eos # (Auto) 0.1 Baso # (Auto) 0.0 Immature Gran # (Auto) 0.01 H Absolute Nucleated RBC 0.00 Immature Gran % 0 Nucleated RBC % 0 Sodium 141 Potassium 4.2 Chloride 108 H Carbon Dioxide 23.4 Anion Gap 10 BUN 10 Creatinine 0.9 Estim Creat Clear Calc 101.7 eGFR > 60 BUN/Creatinine Ratio 11 L Glucose 106 Calculated Osmolality 280 Lactic Acid Calcium 8.2 L Corrected Calcium 8.5 Magnesium 2.1 Total Bilirubin 1.4 H AST 23 ALT 30 Alkaline Phosphatase 54 Total Protein 5.7 Albumin 3.6 D Globulin 2.1 L Albumin/Globulin Ratio 1.7 Triglycerides 136 Cholesterol 133 LDL Cholesterol, Calc 69 HDL Cholesterol 37 L Cholesterol/HDL Ratio 3.6 L Lipase Ur Collection Type Urine Color Urine Clarity Urine pH Ur Specific [place] Urine Protein Urine Glucose (UA) Urine Ketones Urine Blood Urine Nitrite Urine Bilirubin Urine Urobilinogen (Auto) Ur Leukocyte Esterase Urine RBC Urine WBC Ur Squamous Epith Cells Urine Bacteria Hyaline Casts Quality Measures Quality Measures none Assessment & Plan Assessment Current Active Medications: Generic Name Dose Route Start Last Admin Trade Name Freq PRN Reason Stop Dose Admin Acetaminophen 650 mg 11/12/24 22:18 Acetaminophen 325 Mg Tablet PO 12/12/24 22:17 Q6H PRN PAIN 1-3 OR FEVER > 101 Heparin Sodium (Porcine) 5,000 unit 11/13/24 06:00 11/13/24 13:16 Heparin Sod Inj 5000 Unit/Ml Vial SC 11/27/24 05:59 5,000 unit Q8HR PAPI Administration Metoclopramide HCl 10 mg 11/13/24 08:00 11/13/24 13:16 Metoclopramide Inj 5 Mg/Ml Vial 2 Ml IVP 12/13/24 07:59 10 mg Q6HR PAPI Administration Protocol Morphine Sulfate 2 mg 11/12/24 22:18 11/13/24 00:56 Morphine Sulf Inj 10 Mg/Ml Vial IVP 11/17/24 22:17 2 mg Q4H PRN Administration PAIN SCALE 7-10 (Severe Ondansetron HCl 4 mg 11/12/24 22:18 11/13/24 09:05 Ondansetron Inj 2 Mg/Ml Inj 2 Ml IVP 12/12/24 22:17 4 mg Q6H PRN Administration NAUSEA OR VOMITING Protocol Pantoprazole Sodium 40 mg 11/13/24 09:00 11/13/24 09:00 Pantoprazole Inj 40 Mg Vial IVP 12/13/24 08:59 40 mg QDAY PAPI Administration Plan 58-year-old Slovenian-speaking male with past medical history of umbilical hernia s/p repair, hypertension, hyperlipidemia, history of multiple abdominal surgeries was admitted for small bowel obstruction treatment and management. #Small bowel obstruction-resolving History of status post laparoscopic repair of incarcerated incisional hernia with mesh on 06/30/[address] Hastings, came in with chief complaints of abdominal pain nausea that was progressively getting worse. CT abdomen revealed early small bowel obstruction had BM today in the morning gastrograffin study shows resolution of SBO ? DC/ NGT ? IVF ? on CLD adv as tolerated ? Zofran as needed ? Pain control as needed ? General Surgery consulted, recommendations appreciated #Polycythemia Hemoglobin is elevated, most likely secondary to dehydration ? IVF ? Daily CBC #Hypertension #Hyperlipidemia ? resumed lisinopril as taken at home - resumed statin as taken at home Disposition:medsurge DVT prophylaxis: heparin GI prophylaxis: PPI Diet: CLD, adv as tolerated Lines: PIV, NG, CODE STATUS:Full code Case discussed with my attending Dr. Gulshan Solis MD PGY-1 Attending Provider Attestation/Addendum I, Devi Gaffney, DO, attest that I was physically present for the goldstein portions of the service and evaluated the patient with the resident and I reviewed and discussed the case with the resident and agree with the resident's findings and plans of care as documented above Patient was seen and evaluated this a.m. patient states that his abdomen is still distended, but less than presentation. He denies any further episodes of vomiting, but remains somewhat nauseous. NG tube remains in place. Pending repeat KUB, but last KUB done at 4am is positive for contrast primarily in the stomach. Will continue to follow with small bowel follow-through. General surgery consulted. Will follow-up further recommendations.
[2024-11-13] MEDS: ATORVASTATIN CALCIUM 20 MG TABLET PO (20:38)
[2024-11-14] VITALS: BP 124/73; PULSE 76; RESP 18; TEMP 36.8; O2SAT 96
[2024-11-14 04:00] VITALS: BP 128/82; PULSE 70; RESP 17; TEMP 36.3; O2SAT 96
[2024-11-14] MEDS: HEPARIN SOD INJ 5000 UNIT/ML VIAL SC ×2 (05:49→13:16)
[2024-11-14] MEDS: METOCLOPRAMIDE INJ 5 MG/ML VIAL 2 ML 10 MG IVP ×2 (05:49→13:16)
[2024-11-14 06:07] LABS: Basophils % (Auto) 0 % (0-2.5); Eosinophils # (Auto) 0.2 Thou/mm3 (0.0-0.5); Eosinophils % (Auto) 3 % (0-10); Hematocrit 43.5 % (41.0-53.0); Hemoglobin 14.5 g/dL (13.5-16.0); Immature Granulocytes % (Auto) 0 % (0-0); Immature Granulocytes Auto 0.02 Thou/mm3 (0.00-0.00); Lymphocytes # (Auto) 1.8 Thou/mm3 (1.0-4.8); Lymphocytes % (Auto) 38 % (10-50); Mean Corpuscular HGB Conc 33.3 g/dl (31.0-37.0); Mean Corpuscular Hemoglobin 30.1 pg (25.0-35.0); Mean Corpuscular Volume 90 fL (80-100); Monocytes # (Auto) 0.4 Thou/mm3 (0.0-0.8); Monocytes % (Auto) 9 % (0-12); Neutrophils # (Auto) 2.4 Thou/mm3 (1.8-7.7); Neutrophils % (Auto) 50 % (37-80); Nucleated Red Blood Cell % 0 /100 WBC (0); Platelet Count 199 Thou/mm3 (140-440); Red Blood Count 4.82 Miln/mm3 (4.50-5.90); White Blood Count 4.9 Thou/mm3 (3.8-10.6)
[2024-11-14 06:32] LABS: Alanine Aminotransferase 26 U/L (10-49); Albumin, Serum 3.5 gm/dL (3.5-5.0); Albumin/Globulin Ratio 1.9 (1.2-2.2); Alkaline Phosphatase 50 U/L (46-116); Anion Gap 10 (7-16); Aspartate Amino Transferase 20 U/L (0-34); BUN/Creatinine Ratio 13 Ratio (12-20); Bilirubin,Total 0.9 mg/dL (0.3-1.2); Blood Urea Nitrogen 12 mg/dL (9-23); Calcium 8.3 mg/dL (8.3-10.6); Calcium (Corrected) 8.7 mg/dL (8.5-10.1); Carbon Dioxide 23.3 mMol/L (20.0-31.0); Chloride 110 mMol/L (98-107); Creatinine (Component) 0.9 mg/dL (0.6-1.3); Estimated Creatinine Clearance 101.1 mL/min (>60); Globulin 1.8 gm/dL (2.3-3.5); Glucose 88 mg/dL (74-106); Osmolality,Calculated 283 (275-295); Potassium 3.9 mMol/L (3.4-5.1); Sodium 143 mMol/L (136-145); Total Protein 5.3 gm/dL (5.7-8.2); eGFR > 60 See Note
--- NOTE | 2024-11-14 07:33 | PC.NURSE ---
made aware that the pt is having multiple PVC's this AQM. ordered to give scheduled aminodarone now
[2024-11-14 08:00] VITALS: BP 129/76; PULSE 76; RESP 18; TEMP 36.2; O2SAT 93
--- NOTE | 2024-11-14 08:36 | PD.SURPROG ---
Documentation for date of: 11/14/24 Subjective Subjective Narrative: Patient is tolerating clear liquids and had multiple bowel movements Exam Vital Signs Temp Pulse Resp BP Pulse Ox O2 Del Method 97.3 F 70 17 128/82 96 Room Air 11/14/24 04:00 11/14/24 04:00 11/14/24 04:00 11/14/24 04:00 11/14/24 04:00 11/14/24 04:00 Constitutional Constitutional: no acute distress Routine Abdominal Exam Comments: Abdomen is soft and nondistended. Minimal tenderness to palpation throughout the abdomen, no rebound tenderness or peritonitis Assessment & Plan Assessment Additional comments: Small bowel obstruction resolving Plan Advance diet, may discharge after lunch
[2024-11-14 08:37] VITALS: BP 129/76; PULSE 76
[2024-11-14] MEDS: Lisinopril 20 MG TABLET PO (08:37)
[2024-11-14] MEDS: PANTOPRAZOLE INJ 40 MG VIAL IVP (08:39)
[2024-11-14 08:55] VITALS: PULSE 83; RESP 18; RESP 92
--- NOTE | 2024-11-14 10:56 | ESDS_ITS ---
<Statement entered by Devi Gaffney DO - 11/15/24 07:51> I, Devi Gaffney DO, attest that I was physically present for the goldstein portions of the service and evaluated the patient with the resident and I reviewed and discussed the case with the resident and agree with the resident's findings and plans of care as documented above Planned Discharge Date 11/14/24 DS: Providers Provider Date of admission: 11/12/24 22:19 Primary care physician: Physician No Primary/Family Admitting Provider: Carrington Rich MD Attending Provider on Admission: Devi Gaffney DO Consults: 11/12/24 22:27 Consult to General Surgery Stat Comment: Consulting Provider: Sariah Hastings Attending Provider on DC: Devi Gaffney DO Discharging Provider: Vel Patino MD DS: Diagnosis Discharge Diagnosis (1) Abdominal pain: Status: Acute (2) Small bowel obstruction: Status: Acute Problem List Completed Was Problem List Reviewed/Reconciled?: Yes Hospital Course Hospital Course Hospital course: Hospital Course: The patient is a 58-year-old Estonian-speaking male with past medical history of laparoscopic repair of incarcerated incisional hernia with mesh (Jun 2024), hypertension, hyperlipidemia, history of multiple abdominal surgeries was admitted for small bowel obstruction treatment and management. Patient outpatient following Dr Hastings, came in with chief complaints of abdominal pain nausea that was progressively getting worse. CT abdomen in the ED showed small bowel obstruction. General surgery was consulted. NGT was inserted for suctioning and XR small bowel series ordered. Gastrograffin study shows resolution of SBO. He is started on Benefiber supplement and Dulcolax at home. Problems on this admission: - Small bowel obstruction- resolved - Polycythemia - Hypertension - Hyperlipidemia Procedures: XR small bowel series with gastrograffin Discharge instructions: - Follow up with PCP within 1 week. If you dont have a PCP, please call [phone] for an appointment - Take Dulcolax every morning and Benefiber supplement every night to prevent backup/obstruction - May also use Metoclopramide in addition, as needed for nausea or constipation - You can stop Rabeprazole. Only use as needed. - Continue all other home medications. - Return to ED if symptoms come back We are grateful to be able to participate in Mr Ann's care. We wish him the best. Plan of care discussed with attending Vel Romeo M.D. PGY2 Disclaimer: Minor errors in rubber and pounder may be present as this note was dictated using voice recognition software. Status at Discharge Cognitive/behavioral status at discharge: Stable and returned to baseline Time Spent with Patient Time attestation: Total time spent providing and/or coordinating discharge services: more than 50% Time spent: Greater than 30 minutes Exam Vital Signs Temp Pulse Resp BP Pulse Ox O2 Del Method 97.1 F 76 18 129/76 93 L Room Air 11/14/24 08:00 11/14/24 08:37 11/14/24 08:00 11/14/24 08:37 11/14/24 08:00 11/14/24 08:00 Narrative Exam Constitutional Alert, oriented x3 , uncomfortable. HEENT Vision grossly intact. Patent nares. Trachea midline. Respiratory Chest normal on inspection and clear to auscultation bilaterally. Cardiovascular S1 and S2 audible, RRR. No murmurs or carotid bruit. No gross JVD. Abdominal Soft, minimally tender to palpation in lower quadrants. BS + Genitourinary No bladder tenderness, no flank pain. Normal to palpation. Musculoskeletal Extremities tone within normal limits. No LE edema. Neurological CN II - XII grossly intact. Extremity motor and sensation grossly intact. Skin Warm, dry and intact. Striae on abdomen, old surgical scar around umbilicus Psychiatric Patient has a good affect, is cooperative. Discharge Plan Plan Patient Disposition: HOME (Self Care) Patient condition on transfer: Stable Care Plan Goals: - Follow up with PCP within 1 week. If you dont have a PCP, please call [phone] for an appointment - Take Dulcolax every morning and Benefiber supplement every night to prevent backup/obstruction - May also use Metoclopramide in addition, as needed for nausea or constipation - You can stop Rabeprazole. Only use as needed. - Continue all other home medications. - Return to ED if symptoms come back Prescriptions/Referrals Prescriptions/Med Rec: New Benefiber Healthy Shape 5 gram/7.4 gram powder 2 g PO HS 30 Days Qty: 500 0RF bisacodyl 5 mg tablet,delayed release (DR/EC) 5 mg PO QDAY Qty: 30 1RF Continued lisinopril 20 mg tablet 20 mg PO DAILY Patient Comments: TOME ELSIE TABLETA TODOS LOS D atorvastatin 20 mg tablet 20 mg PO DAILY Patient Comments: TOME 1 TABLETA POR V A ORAL TODOS LOS D Zepbound 2.5 mg/0.5 mL pen injector 2.5 mg SUBCUT .week Patient Comments: INYECTE 2.5 MG POR V A SUBCUT CHRISTINE ELSIE VEZ POR SEMANA metoclopramide HCl 10 mg tablet 5 mg PO BID Discontinued rabeprazole 20 mg tablet,delayed release (DR/EC) 20 mg PO .COMPLEX Patient Comments: TOME ELSIE TABLETA POR V A ORAL TODOS LOS D DESPUES DE ELSIE COMIDA PARA 30 BROWN Rx Instructions: 20 mg orally once a day, after a meal; Referrals: No Primary/Family,Physician [Primary Care Provider] - Vel Patino MD [Resident] - Patient/Caregiver Discharge Instructions Meds to Beds: Yes Discharge Activity: resume usual activities Education Materials: How the Colon Works, Obstruction Intestinal Print Language: Estonian Stand Alone Forms: [place] Award Info., Patient Portal Info Letter Discharge Order Discharge Orders: Discharge (Routine); Ordered 11/14/24 Ordered By: Vel Patino Quality Discharge Quality Measures VTE prophylaxis
[2024-11-14 12:00] VITALS: BP 127/84; PULSE 82; RESP 20; TEMP 36.4; O2SAT 92
== END 2024-11-14 14:39 | disposition home or self-care (01) | DRG 247 ==
LOC: SERX 20:39 → SERHOLD 22:45 → S3NX 11-13 06:09 → SERHOLD 11-13 06:14
PROVIDERS: Nurse Practitioner Family; Student in an Organized Health Care Education/Training Program; Admitting Provider Internal Medicine; Emergency Provider Family Medicine; Visit Provider Internal Medicine
DX: K56.609 Unspecified intestinal obstruction, unspecified as to partial versus complete obstruction (principal); E78.5 Hyperlipidemia, unspecified; I10 Essential (primary) hypertension; D75.1 Secondary polycythemia; E86.0 Dehydration; E11.9 Type 2 diabetes mellitus without complications; K80.20 Calculus of gallbladder without cholecystitis without obstruction; E66.9 Obesity, unspecified; Z68.41 Body mass index [BMI] 40.0-44.9, adult; Z79.899 Other long term (current) drug therapy; Z79.84 Long term (current) use of oral hypoglycemic drugs
CPT/HCPCS: 36415; 74018; 74176; 74250; 80053; 80061; 81001; 83605; 83690; 83735; 85025; 87086; 96361; 96374; 96375; 96376; 99285; A4699; J1644; J2270; J2405; J2470; J2765; J7030; J7120; Q0162; A9270

== ENCOUNTER 2025-01-05 05:50 | Inpatient (IN) | payer MEDICAID, SELFPAY ==
[2025-01-05] VITALS (12 sets, daily range): BP systolic 128–162; BP diastolic 74–98; PULSE 62–90; RESP 16–95; TEMP 36.2–37.1; O2SAT 93–98; BMI 35.4
--- NOTE | 2025-01-05 | XR_ITS ---
Examination: Abdomen AP single view Technique: AP portable supine abdomen, single view Exam date and time: January 05, 2025 1446 hours INDICATIONS: Abdominal pain and distention this week, 3 hour delayed film post small bowel series FINDINGS: Contrast remains in distended small bowel loops However, contrast is present in the colon IMPRESSION: Negative for small bowel obstruction, no further films are needed
--- NOTE | 2025-01-05 07:00 | PD.EDADULT ---
ED General RME/HPI General Chief complaint: Abdominal Pain Stated complaint: ABD PAIN Time Seen by Provider: 01/05/25 07:00 Arrival date/time: 01/05/25 05:50 RME / HPI RME / HPI narrative: see [facility] Related Data Home Medications ?Medication ?Instructions ?Recorded ?Confirmed atorvastatin 20 mg tablet 20 mg PO DAILY 06/26/24 11/13/24 lisinopril 20 mg tablet 20 mg PO DAILY 06/26/24 11/13/24 metoclopramide HCl 10 mg tablet 5 mg PO BID 11/13/24 11/13/24 tirzepatide (weight loss) 2.5 2.5 mg subcut .week 11/13/24 11/13/24 mg/0.5 mL subcutaneous pen injector (Zepbound) Previous Rx's ?Medication ?Instructions ?Recorded bisacodyl 5 mg tablet,delayed 5 mg PO QDAY #30 tabs 11/14/24 release Allergies Allergy/AdvReac Type Severity Reaction Status Date / Time No Known Allergies Allergy Verified 08/06/24 12:43 Review of Systems Review of Systems Systems Reviewed: All systems reviewed, normal except as documented ED Exam Narrative Physical exam: GENERAL: NAD, AAOx3 HEENT: Moist mucosa. Eyes open, symmetrical, & clear CARDIO: Heart RRR, no obvious murmurs PULM: No noted coughing/dyspnea CTA B/L, no R/W/R GI: Abdomen hard, distended, pain on palpation all 4 quadrants. SKIN/MSK/EXT: No wounds/rashes/edema/amputations, no pain on palpation. Pedal pulses present B/L NEURO: AAOx3, no focal neuro deficits, able to move all 4 extremities Course Course Course Narrative: see [facility] Quality Measures none Orders Category Date Time Status Aspiration precautions ONCE Care 01/05/25 07:34 Active EKG (ED ONLY) *Do not use* NOW Care 01/05/25 07:08 Completed Insert NG / OG tube NOW Care 01/05/25 08:[address] abdomen pelvis wo con Stat Exams 01/05/25 07:08 Completed CXR [XR chest 1V post procedure] Stat Exams 01/05/25 08:23 Taken EKG (ED Only) Stat Exams 01/05/25 07:08 Draft XR small bowel single contrast Stat Exams 01/05/25 09:08 Ordered B-Type Natriuretic Peptide Stat Lab 01/05/25 08:09 Completed CBC Stat Lab 01/05/25 07:00 Completed Comprehensive Metabolic Panel Stat Lab 01/05/25 08:09 Completed Drug Screen,Urine Stat Lab 01/05/25 08:04 Completed Lactic Acid [Lactate (Lactic Acid)] Stat Lab 01/05/25 07:00 Results Lipase Stat Lab 01/05/25 08:09 Completed Magnesium Stat Lab 01/05/25 08:09 Completed Partial Thromboplastin Time Stat Lab 01/05/25 08:09 Completed Prothrombin Time with INR Stat Lab 01/05/25 08:09 Completed Urinalysis Stat Lab 01/05/25 08:04 Completed HYDROmorphone INJ [Dilaudid Inj] Med 01/05/25 08:15 Discontinued 0.5 mg IVP X1 ONE Morphine Inj Med 01/05/25 07:02 Discontinued 4 mg IVP X1 ONE Ondansetron Inj [Zofran Inj] Med 01/05/25 07:20 Active 4 mg IVP Q4HR PRN Ondansetron Inj [Zofran Inj] Med 01/05/25 07:10 Discontinued 4 mg IVP X1 ONE Ringers Lactated 1000 ml [Lactated Ringers] 1,000 ml Med 01/05/25 07:53 Discontinued IV 999 mls/hr Oxygen Delivery NOW RT 01/05/25 07:34 Active Transfer Order Routine Transfer 01/05/25 08:56 Active Vital Signs Vital signs: Vital Signs Temperature 97.7 F 01/05/25 06:05 Pulse Rate 73 01/05/25 06:05 Respiratory Rate 16 01/05/25 06:05 Blood Pressure 128/74 01/05/25 06:05 Pulse Oximetry (%) 97 01/05/25 06:05 Oxygen Delivery Method Room Air 01/05/25 06:05 Discharge Plan Plan Patient Disposition: Admit Acute Care w/in Hospital Prescriptions/Referrals Prescriptions/Med Rec: No Action lisinopril 20 mg tablet 20 mg PO DAILY Patient Comments: TOME ELSIE TABLETA TODOS LOS D atorvastatin 20 mg tablet 20 mg PO DAILY Patient Comments: TOME 1 TABLETA POR V A ORAL TODOS LOS D Zepbound 2.5 mg/0.5 mL pen injector 2.5 mg SUBCUT .week Patient Comments: INYECTE 2.5 MG POR V A SUBCUT CHRISTINE ELSIE VEZ POR SEMANA metoclopramide HCl 10 mg tablet 5 mg PO BID bisacodyl 5 mg tablet,delayed release (DR/EC) 5 mg PO QDAY Qty: 30 1RF Referrals: Juan Alberto Castellanos PA-C [Primary Care Provider] - In 1 week Problem List Clinical Impression: Small bowel obstruction Patient/Caregiver Discharge Instructions Print Language: Lithuanian Stand Alone Forms: [facility] Award Info., Patient Portal Info Letter MDM Narrative MDM hospital course: 59 y/o M with PMHx of umbilical hernia s/p repair on 06/30/2024, history of multiple abdominal surgeries, hypertension, hyperlipidemia, recent history of SBO who presented to the ED due to diffuse abdominal pain. Patient states he suddenly woke up at 3 am with diffuse abdominal pain accross all 4 quadrants with associated nausea and vomiting. Denies fever, chills, chest pain, shortness of breath, recent travel, sick contacts. 0710: Labs ordered, CT ordered 0810: CT shows SBO pattern, NGT ordered, lactic acid 2.7, CBC unremarkable, 1L LR ordered, 0817: spoke to Dr. Hastings stated hospitalist to admit and do Gastrograffin if study is positive can consult him 0851: Spoke to IM team will accept the patient, Gastrograffin study ordered Clinical Information Provided by patient Medical Records Reviewed [facility] Chronic Illness/Social Conditions which may negatively complicate care or outcome(s)-explain: None or not applicable EKG EKG Interpretation narrative: sinus rhythm EKG Interpretation EKG #1: Date/time of EK01/05/25 8:26 am Lab Interpretation Labs: interpreted by me Lab(s) interpretation(s): CBC unremarkable, lactic acidosis, Imaging Radiology reports / interpretation(s): see report Medication Administration(s) Medication Administration History Ondansetron HCl (Ondansetron Inj 2 Mg/Ml Inj 2 Ml) 4 mg IVP Q4HR PRN; Protocol PRN Reason: NAUSEA OR VOMITING Stop: 02/04/25 07:19 Discontinued Medications Hydromorphone HCl (Hydromorphone Inj 2 Mg/Ml Vial) 0.5 mg IVP X1 ONE Stop: 01/05/25 08:16 Last Admin: 01/05/25 08:24 Dose: 0.5 mg Documented By: MM Lactated Ringer's (Lactated Ringers) 1,000 mls @ 999 mls/hr IV .Q1H1M ONE Stop: 01/05/25 08:53 Last Admin: 01/05/25 08:02 Dose: 999 mls/hr Documented By: VL Morphine Sulfate (Morphine Sulf Inj 10 Mg/Ml Vial) 4 mg IVP X1 ONE Stop: 01/05/25 07:03 Last Admin: 01/05/25 07:07 Dose: 4 mg Documented By: VL Ondansetron HCl (Ondansetron Inj 2 Mg/Ml Inj 2 Ml) 4 mg IVP X1 ONE; Protocol Stop: 01/05/25 07:11 Last Admin: 01/05/25 07:14 Dose: 4 mg Documented By: VL see above Diagnosis Differential diagnosis: SBO, Peritonitis, gastroenteritis Most likely dx, and/or detailed dx discussion: SBO Dispositon Disposition: Admit
[2025-01-05] MEDS: MORPHINE SULF INJ 10 MG/ML VIAL 4 MG IVP (07:07)
--- NOTE | 2025-01-05 07:08 | EKG_ITS ---
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
--- NOTE | 2025-01-05 07:08 | XR_ITS ---
Examination: CT abdomen and pelvis without contrast. Coronal 3-D reconstructions. Sagittal 2-D reconstructions. Date and time of exam:January 05, 2025 0746 hours Comparison November 12, 2024 INDICATIONS: Generalized abdominal pain beginning 4 days ago CTDI: vol (mGy): 12.2 DLP: (mGycm): 688 Technique: Axial images of the abdomen have been obtained, 3 mm slice thickness Intravenous contrast material has not been administered. Low dose protocols were performed. One or more of the following dose reduction techniques were used; automated exposure control, adjustment of the mA and/or KV according to patient size, use of iterative reconstruction technique. Findings: 11 mm posterior inferior right lobe liver lesion Cholelithiasis, negative for cholecystitis Spleen is not enlarged No pancreatic mass Mild bilateral renal parenchymal scar formation No pericecal inflammatory changes Multiple fluid distended small bowel loops Colonic diverticulosis, no diverticulitis No prostatomegaly Contracted urinary bladder Advanced disc narrowing L3-L4, L5-S1 IMPRESSION: Cholelithiasis, negative for cholecystitis Small bowel obstruction pattern, consider Gastrografin small bowel series follow-up
[2025-01-05] MEDS: ONDANSETRON INJ 2 MG/ML INJ 2 ML 4 MG IVP (07:14)
[2025-01-05 07:31] LABS: Lactate (Lactic Acid) 2.7 mMol/L (0.4-2.0)
[2025-01-05 07:39] LABS: Basophils # (Auto) 0.1 Thou/mm3 (0.0-0.2); Basophils % (Auto) 1 % (0-2.5); Eosinophils # (Auto) 0.1 Thou/mm3 (0.0-0.5); Eosinophils % (Auto) 1 % (0-10); Hematocrit 47.7 % (41.0-53.0); Hemoglobin 16.3 g/dL (13.5-16.0); Immature Granulocytes Auto 0.02 Thou/mm3 (0.00-0.00); Lymphocytes # (Auto) 2.9 Thou/mm3 (1.0-4.8); Lymphocytes % (Auto) 29 % (10-50); Mean Corpuscular HGB Conc 34.2 g/dl (31.0-37.0); Mean Corpuscular Hemoglobin 30.1 pg (25.0-35.0); Mean Corpuscular Volume 88 fL (80-100); Monocytes # (Auto) 0.8 Thou/mm3 (0.0-0.8); Monocytes % (Auto) 7 % (0-12); Neutrophils # (Auto) 6.4 Thou/mm3 (1.8-7.7); Neutrophils % (Auto) 62 % (37-80); Nucleated Red Blood Cell # 0.00 Thou/mm3 (0.00-0.00); Nucleated Red Blood Cell % 0 /100 WBC (0); Platelet Count 229 Thou/mm3 (140-440); RDW Standard Deviation 41.9 fL (35.1-43.9); Red Blood Count 5.42 Miln/mm3 (4.50-5.90); White Blood Count 10.2 Thou/mm3 (3.8-10.6)
[2025-01-05] MEDS: RINGERS LACTATED 1000 ML 1,000 ML 999 ML IV (08:02)
[2025-01-05 08:11] LABS: Collection Type, Urine Clean Catch
--- NOTE | 2025-01-05 08:23 | XR_ITS ---
Examination: AP chest single view Technique one AP portable upright chest single view Date and time: January 05, 2025 0835 hours Comparison November 12, 2024 INDICATIONS: Post orogastric tube placement FINDINGS: The orogastric tube is poorly visualized Mild enlargement cardiac contour IMPRESSION: Recommend abdomen film follow-up to best assess position of the orogastric tube
[2025-01-05] MEDS: HYDROmorphone INJ 2 MG/ML VIAL 0.5 MG IVP (08:24)
[2025-01-05 08:28] LABS: Amphetamine/Methamp Scrn,U Negative (Negative); Barbiturate Screen,Urine Negative (Negative); Benzodiazepines Screen,Urine Negative (Negative); Benzoylecgonine Screen, Ur Negative (Negative); Fentanyl Screen,Urine Negative (Negative); Opiate Screen,Urine Positive (Negative); THC Screen,Urine Negative (Negative)
[2025-01-05 08:29] LABS: Bilirubin,Urine Negative (Negative); Blood,Urine Negative (Negative); Clarity,Urine Clear (Clear/Hazy); Color,Urine Yellow (Lt Yel-Yel); Glucose, Urine Negative (Negative); Ketones,Urine 2+ (Negative); Leukocyte Esterase,Urine Negative (Negative); Nitrite,Urine Negative (Negative); PH,Urine 6.5 (5.0-7.0); Protein,Urine 1+ (Neg - Trace); RBC,Urine 7 /hpf (0-3); Specific Gravity,Urine 1.033 (1.001-1.035); Squamous Epithelial Cell,Urine 1 /hpf (0-5); Urobilinogen,Urine Negative mg/dL (0.0-1.0); WBC,Urine 1 /hpf (0-5)
[2025-01-05 08:42] LABS: B-Type Natriuretic Peptide 26 pg/mL (0-100)
[2025-01-05 08:43] LABS: INR 1.1 (0.9-1.3); Partial Thromboplastin Time 26.8 Seconds (22.0-36.0); Prothrombin Time 11.6 Seconds (9.0-12.2)
[2025-01-05 08:44] LABS: Alanine Aminotransferase 38 U/L (10-49); Albumin, Serum 3.8 gm/dL (3.5-5.0); Albumin/Globulin Ratio 1.7 (1.2-2.2); Alkaline Phosphatase 55 U/L (46-116); Anion Gap 11 (7-16); Aspartate Amino Transferase 32 U/L (0-34); BUN/Creatinine Ratio 10 Ratio (12-20); Bilirubin,Total 1.1 mg/dL (0.3-1.2); Blood Urea Nitrogen 10 mg/dL (9-23); Calcium 9.4 mg/dL (8.3-10.6); Calcium (Corrected) 9.6 mg/dL (8.5-10.1); Carbon Dioxide 24.5 mMol/L (20.0-31.0); Chloride 107 mMol/L (98-107); Creatinine (Component) 1.0 mg/dL (0.6-1.3); Estimated Creatinine Clearance 96.8 mL/min (>60); Globulin 2.2 gm/dL (2.3-3.5); Glucose 118 mg/dL (74-106); Lipase 19 U/L (12-53); Magnesium 1.8 mg/dL (1.6-2.6); Osmolality,Calculated 283 (275-295); Potassium 3.8 mMol/L (3.4-5.1); Sodium 142 mMol/L (136-145); Total Protein 6.0 gm/dL (5.7-8.2); eGFR > 60 See Note
--- NOTE | 2025-01-05 09:08 | XR_ITS ---
Examination: Upper GI series with KUBs AP supine abdomen 3 views Date and time: January 05, 2025 1143 hours INDICATIONS: Abdominal pain and distention this week, small bowel obstruction pattern on CT abdomen pelvis today TECHNIQUE AND FINDINGS: Patient received 120 cc Gastrografin with immediate, 30 minute, 1.5 hour delayed films Contrast in mildly distended jejunal loops Some contrast in the ileal loops IMPRESSION: Mild small bowel dilatation Recommend follow-up films 3:00 PM, 5:00 PM, 7:00 PM
--- NOTE | 2025-01-05 09:37 | XR_ITS ---
Examination: Abdomen AP single view Technique: AP portable supine abdomen, single view Exam date and time: January 05, 2025 0938 hours INDICATIONS: Post orogastric tube placement FINDINGS: Orogastric tube proximal stomach Nonobstructive bowel gas pattern IMPRESSION: Advance the orogastric tube 5 cm
--- NOTE | 2025-01-05 09:40 | ESHP_ITS ---
<Statement entered by Boris Washington MD - 01/11/25 14:20> I reviewed above note and agree with findings and plans. I have also personally examined the patient with medicine team and went over assessment and plan with medical team including art gallery internship and resident physician. Documentation for date of: 01/05/25 Patient is a 59-year-old male with a past medical history of recurrent small bowel obstructions likely secondary to adhesions given extensive past medical history abdominal surgery, hypertension, and hyperlipidemia. Patient presented with a chief complaint of diffuse abdominal tenderness, patient stated 10 out of 10 pain, and admitted for small bowel obstruction as noted on CT abdomen. Patient's abdomen appeared distended, likely secondary to abdominal hernia and loss of abdominal muscle as noted on CT. Patient's small bowel obstruction likely secondary to adhesions versus hernia likely complicated by use of Zepbound, unclear if patient continues to take medication and use of metoclopramide. Small bowel obstruction likely resolved. Discontinue NG tube, minimal output. Clear liquid diet, advance as tolerated. HPI History of Present Illness History of present illness: Patient is a 59-year-old male with past medical history of multiple abdominal surgeries, hyperlipidemia, hypertension who is presented to the ED on 01/05/2025 for diffuse abdominal pain and nausea, admitted for concern of small bowel obstruction. Of note patient was admitted on 11/13/2024 and 07/2024 for concern of small bowel obstructions, surgery was consulted but no surgery done, SBO resolved on its own. In July 2024, GI Dr. Ovalles was also consulted, KUB was unremarkable. Recommended that patient not be on Ozempic which she was on at the time. Patient had small bowel movement this morning. Denies vomiting, chest pain, shortness of breath. Note, patient is taking Reglan and Zepbound. ED Course: -Initial vitals were BP 128/74, HR 73, temperature 97.7 ?F, RR 16, 97% on room air -Labs significant for WBC 10.2 within normal limits, hemoglobin 16.3, lactic 2.7, CMP unremarkable, UA positive for ketones and 7 RBC, U tox positive for opiates. EKG showed normal sinus tachycardia, noted possible old inferior myocardial infarct. -Imaging included abdominal x-ray which showed orogastric tube in place. Pending Gastrografin small bowel imaging. -In the ED, patient was given Zofran, IVF bolus, morphine 4 mg x 1, and Dilaudid 0.5 mg x 1 -Patient was admitted for concern for SBO Review of systems otherwise negative except what is mentioned above. Past Medical History: Hyperlipidemia, hypertension, denies cardiac history Family History: Noncontributory Surgical History: Exploratory laparotomy for perforated sigmoid colon repair and incidental appendectomy (September 2021), hernia repair for periumbilical incisional hernia with incarcerated omentum, mesh placed (June 2024) Social History: Lives home alone. Denies history of smoking, denies current alcohol use, denies recreational drug use Current Medications: Lisinopril 20 mg daily, atorvastatin 20 mg daily, Reglan as needed, Zepbound (Source: Med rec, external pharmacy records) Allergies: No known drug allergies Exam Vital Signs Temp Pulse Resp BP Pulse Ox O2 Del Method O2 Flow Rate 98.7 F 67 17 161/96 H 95 Nasal Cannula 2 01/05/25 09:04 01/05/25 09:04 01/05/25 09:04 01/05/25 09:04 01/05/25 09:04 01/05/25 09:04 01/05/25 09:04 Narrative Exam Physical Exam General: Awake and in no acute distress. Conversational and non-toxic appearing. HEENT: Normocephalic, atraumatic, mucous membranes moist. Heart: Regular rate and rhythm, normal S1 and S2, no murmurs. Lungs: Clear to auscultation with no wheezing or crackles. Abdomen: Soft, distended, diffusely tender, positive bowel sounds. No guarding or rebound tenderness. Surgical scars and stretch cardenas present. Neurologic: Alert and oriented x3, no gross neurological deficit, and patient able to move all 4 extremities. Extremities: No edema. Skin: No rash or ecchymoses. Results: Labs 01/05/25 07:00 01/05/25 08:09 Labs: Short CBC 01/05/25 Range/Units 07:00 WBC 10.2 (3.8-10.6) Thou/mm3 Hgb 16.3 H (13.5-16.0) g/dL Hct 47.7 (41.0-53.0) % Plt Count 229 (140-440) Thou/mm3 BMP 01/05/25 08:09 Sodium 142 Potassium 3.8 Chloride 107 Carbon Dioxide 24.5 BUN 10 Creatinine 1.0 Glucose 118 H Calcium 9.4 Liver Function 01/05/25 Range/Units 08:09 Total Bilirubin 1.1 (0.3-1.2) mg/dL AST 32 (0-34) U/L ALT 38 (10-49) U/L Alkaline Phosphatase 55 (46-116) U/L Albumin 3.8 (3.5-5.0) gm/dL Urine 01/05/25 Range/Units 08:04 Urine Color Yellow (Lt Yel-Yel) Urine Clarity Clear (Clear/Hazy) Urine pH 6.5 (5.0-7.0) Ur Specific [place] 1.033 (1.001-1.035) Urine Protein 1+ A (Neg - Trace) Urine Glucose (UA) Negative (Negative) Quality Measures Quality Measures none Medications Home Medications and Allergies Home Medications ?Medication ?Instructions ?Recorded ?Confirmed ?Type atorvastatin 20 mg tablet 20 mg PO DAILY 06/26/2412/22 History lisinopril 20 mg tablet 20 mg PO DAILY 06/26/2412/22 History Allergies Allergy/AdvReac Type Severity Reaction Status Date / Time No Known Allergies Allergy Verified 08/06/24 12:43 Visit Medications Ondansetron HCl (Ondansetron Inj 2 Mg/Ml Inj 2 Ml) 4 mg IVP Q4HR PRN; Protocol PRN Reason: NAUSEA OR VOMITING Stop: 02/04/25 07:19 Discontinued Medications Hydromorphone HCl (Hydromorphone Inj 2 Mg/Ml Vial) 0.5 mg IVP X1 ONE Stop: 01/05/25 08:16 Last Admin: 01/05/25 08:24 Dose: 0.5 mg Lactated Ringer's (Lactated Ringers) 1,000 mls @ 999 mls/hr IV .Q1H1M ONE Stop: 01/05/25 08:53 Last Admin: 01/05/25 08:02 Dose: 999 mls/hr Morphine Sulfate (Morphine Sulf Inj 10 Mg/Ml Vial) 4 mg IVP X1 ONE Stop: 01/05/25 07:03 Last Admin: 01/05/25 07:07 Dose: 4 mg Ondansetron HCl (Ondansetron Inj 2 Mg/Ml Inj 2 Ml) 4 mg IVP X1 ONE; Protocol Stop: 01/05/25 07:11 Last Admin: 01/05/25 07:14 Dose: 4 mg Assessment & Plan Plan Patient is a 59-year-old male with past medical history of multiple abdominal surgeries, hypertension, hyperlipidemia, who presented to the ER on 01/05 for diffuse abdominal pain and nausea, admitted for concern of small bowel obstruction. Pending Gastrografin small bowel imaging. #SBO likely secondary to adhesions, #History of abdominal surgeries Patient had exploratory laparotomy involving closure of perforated sigmoid colon and incidental appendectomy in September 2021. Also had hernia repair for periumbilical incisional hernia with incarcerated omentum in June 2024. Per review of records, patient was recently admitted in October 2024 for same symptoms with concern for SBO, surgery was consulted no surgery was done. SBO resolved per Gastrografin imaging. Was also admitted in July 2024 for the same symptoms. At the time GI Dr. Ovalles was consulted, KUB done and unremarkable, recommended that patient not be on Ozempic. Of note patient is currently on Reglan as needed and Zepbound per external pharmacy records, may be contributing to current symptoms. Had small bowel movement prior to admission. Small Bowel Series: Negative for small bowel obstruction, no further films are needed Plan: ?Pending Gastrografin small bowel series imaging ?NPO-->transition of clear liquid diet. ?NG tube in place, Discontinued. #Starvation ketosis #Lactic acidosis?resolved UA is positive for ketones. Lactic 2.7, repeat 1.3. No history of diabetes. Patient has not been eating much given his severe abdominal pain. Status post IV fluid bolus. Plan: ? Currently n.p.o. in anticipation for surgery-->clear liquid diet. ? Consider advancing diet as tolerated after potential surgery #Polycythemia Hemoglobin 16.3 on admission. Likely secondary to dehydration, patient has not been eating or drinking much. Given body habitus BRIDGER/OHA can not be ruled out. Plan: ? Status post IV fluid bolus x 1 ? Continue to monitor CBC #Hypertension Patient takes lisinopril 20 mg at home. Patient reports did not take medications today. Systolic BP on admission was 160. ? IV hydralazine 10 mg every 6 hours as needed #Hyperlipidemia Patient takes atorvastatin at home. Lipid panel on 11/13/2024 shows LDL 69, HDL 37, cholesterol 133, triglycerides 136. ? Hold statin for now Health Maintenance Disposition: Pending Gastrografin small bowel imaging, possible surgery for SBO DVT prophylaxis: None needed GI prophylaxis: Protonix 40 mg IV, Senna prn for constipation Diet: N.p.o. CODE STATUS: Full Patient plan of care was discussed with the senior resident, Dr. Flores, and attending physician, Dr. Washington . Karla Hightower, PGY-1 - The patient's plan was discussed with attending Dr. Felix Flores MD PGY2 Internal Medicine
--- NOTE | 2025-01-05 10:09 | PC.NURSE ---
REPORT CALLED TO VALERY ORTIZ ON THIS PATIENT. PATIENT'S NGN TUBE WILL BE ADVANCED BY 5 CM RECOMMENDED BY ABDOMINAL XRAY. VALERY ORTIZ AWARE. REPEAT ABDOMINAL XRAY ORDERED
--- NOTE | 2025-01-05 10:14 | XR_ITS ---
Examination: Abdomen AP single view Technique: AP portable supine abdomen, single view Exam date and time: January 05, 2025 1020 hours INDICATIONS: Reposition orogastric tube. FINDINGS: Orogastric tube now in satisfactory position in stomach No free air IMPRESSION: Orogastric tube now in satisfactory position in the stomach
[2025-01-05 10:26] LABS: Reflex Lactate? Y
[2025-01-05 10:41] LABS: Lactic Acid, 3 HR 1.3 mMol/L (0.4-2.0)
[2025-01-05] MEDS: KETOROLAC INJ 30 MG/ML VIAL IVP ×2 (12:15→20:34)
--- NOTE | 2025-01-05 16:27 | PC.NURSE ---
I connected patient to suction. He has had 2 big bowel movements. Will continue to monitor patient.
[2025-01-05] MEDS: ATORVASTATIN CALCIUM 20 MG TABLET PO ×2 (17:14→20:35)
[2025-01-06] VITALS: BP 130/81; PULSE 61; RESP 18; TEMP 36.2; O2SAT 98
[2025-01-06 04:00] VITALS: BP 127/83; PULSE 60; RESP 18; TEMP 36.2; O2SAT 98
[2025-01-06 06:08] LABS: Basophils # (Auto) 0.0 Thou/mm3 (0.0-0.2); Basophils % (Auto) 0 % (0-2.5); Eosinophils # (Auto) 0.2 Thou/mm3 (0.0-0.5); Eosinophils % (Auto) 3 % (0-10); Hematocrit 43.8 % (41.0-53.0); Hemoglobin 14.8 g/dL (13.5-16.0); Immature Granulocytes Auto 0.01 Thou/mm3 (0.00-0.00); Lymphocytes # (Auto) 1.6 Thou/mm3 (1.0-4.8); Lymphocytes % (Auto) 31 % (10-50); Mean Corpuscular HGB Conc 33.8 g/dl (31.0-37.0); Mean Corpuscular Hemoglobin 30.4 pg (25.0-35.0); Mean Corpuscular Volume 90 fL (80-100); Monocytes # (Auto) 0.7 Thou/mm3 (0.0-0.8); Monocytes % (Auto) 13 % (0-12); Neutrophils # (Auto) 2.8 Thou/mm3 (1.8-7.7); Neutrophils % (Auto) 52 % (37-80); Nucleated Red Blood Cell # 0.00 Thou/mm3 (0.00-0.00); Nucleated Red Blood Cell % 0 /100 WBC (0); Platelet Count 183 Thou/mm3 (140-440); RDW Standard Deviation 42.3 fL (35.1-43.9); Red Blood Count 4.87 Miln/mm3 (4.50-5.90); White Blood Count 5.4 Thou/mm3 (3.8-10.6)
[2025-01-06 06:26] LABS: Alanine Aminotransferase 29 U/L (10-49); Albumin, Serum 3.4 gm/dL (3.5-5.0); Albumin/Globulin Ratio 1.7 (1.2-2.2); Alkaline Phosphatase 54 U/L (46-116); Anion Gap 9 (7-16); Aspartate Amino Transferase 24 U/L (0-34); BUN/Creatinine Ratio 10 Ratio (12-20); Bilirubin,Total 1.6 mg/dL (0.3-1.2); Blood Urea Nitrogen 10 mg/dL (9-23); Calcium 8.5 mg/dL (8.3-10.6); Calcium (Corrected) 9.0 mg/dL (8.5-10.1); Carbon Dioxide 25.0 mMol/L (20.0-31.0); Chloride 110 mMol/L (98-107); Creatinine (Component) 1.0 mg/dL (0.6-1.3); Estimated Creatinine Clearance 96.8 mL/min (>60); Globulin 2.0 gm/dL (2.3-3.5); Glucose 111 mg/dL (74-106); Magnesium 1.8 mg/dL (1.6-2.6); Osmolality,Calculated 286 (275-295); Phosphorous 4.2 mg/dL (2.4-5.1); Potassium 4.0 mMol/L (3.4-5.1); Sodium 144 mMol/L (136-145); Total Protein 5.4 gm/dL (5.7-8.2); eGFR > 60 See Note
[2025-01-06 08:00] VITALS: BP 118/74; PULSE 90; RESP 16; TEMP 36.4; O2SAT 92
[2025-01-06 08:27] VITALS: BP 118/74; PULSE 90
--- NOTE | 2025-01-06 09:56 | PC.SS ---
Follow up note: On IV pain meds. Had bowel movement. Started diet and advance as tolerated. Pt will return home upon dc.
[2025-01-06 12:00] VITALS: BP 129/83; PULSE 77; RESP 18; TEMP 36.1; O2SAT 95
[2025-01-06] MEDS: ONDANSETRON INJ 2 MG/ML INJ 2 ML 4 MG IVP (12:01)
--- NOTE | 2025-01-06 12:01 | ESDS_ITS ---
<Statement entered by Boris Washington MD - 01/11/25 14:21> I reviewed above note and agree with findings and plans. I have also personally examined the patient with medicine team and went over assessment and plan with medical team including industrial engineering intern and resident physician. Planned Discharge Date 01/06/25 DS: Providers Provider Date of admission: 01/05/25 09:18 Primary care physician: Juan Alberto Castellanos PA-C Admitting Provider: Boris Washington MD Attending Provider on Admission: Boris Washington MD Attending Provider on DC: Boris Washington MD Discharging Provider: RESIDENT Cuate DS: Diagnosis Problem List Completed Was Problem List Reviewed/Reconciled?: Yes Hospital Course Hospital Course Hospital course: Summary: Patient is a 59-year-old male with past medical history of multiple abdominal surgeries, recurrent SBO, hypertension, and hyperlipidemia, who presented to the ER on 01/05 for diffuse abdominal pain and nausea, admitted for concern of small bowel obstruction. SBO resolved s/p Gastrografin. ED Course: -Initial vitals were BP 128/74, HR 73, temperature 97.7 ?F, RR 16, 97% on room air -Labs significant for WBC 10.2 within normal limits, hemoglobin 16.3, lactic 2.7, CMP unremarkable, UA positive for ketones and 7 RBC, U tox positive for opiates. EKG showed normal sinus tachycardia, noted possible old inferior myocardial infarct. -Imaging included abdominal x-ray which showed orogastric tube in place. Pending Gastrografin small bowel imaging. -In the ED, patient was given Zofran, IVF bolus, morphine 4 mg x 1, and Dilaudid 0.5 mg x 1 Reason for hospitalization: Patient is a 59-year-old female with past medical history of multiple abdominal surgeries, hypertension, hyperlipidemia who presented to the ER on 01/05 for diffuse abdominal pain and nausea, admitted for small bowel obstruction. Gastrografin small bowel imaging series was ordered, eventually showed that patient did not have SBO. Patient likely has moderate colonic obstruction secondary to adhesions from his multiple abdominal surgeries. Patient had exploratory laparotomy involving closure of perforated sigmoid colon and incidental appendectomy done by general surgeon Dr. Gilmore in 09/24/2021. Also had hernia repair for periumbilical incisional hernia with incarcerated omentum completed by general surgeon Dr. Hastings in 06/30/2024. Per review of records, patient was recently admitted in 08/06/24, 09/23/24, 11/12/24 for same symptoms with concern for SBO, surgery was consulted no surgery was done. SBO resolved per Gastrografin imaging. During July admission, GI Dr. Ovalles was consulted, KUB done and unremarkable, recommended that patient not be on Ozempic. Per review of pharmacy records, patient was prescribed Regland (from last admission) and Zepbound. Patient reports he is not taking either. Has followed up with Dr. Hastings outpatient, no complications. Had multiple bowel movements during stay with improvement in abdominal tenderness and distention. Recommended laxatives for bowel movement and following up outpatient with Dr. Hastings and GI. Discharge Recommendations: -Follow up with Primary care physician with labs within 3-5 days of discharge. Recommend to take laxatives to help with constipation. -Please followup with General surgery Dr Hastings outpatient within 2 weeks of discharge form hospital. -Please take Benefiber to help with bowel movement, you can buy this over the counter. -If symptoms persist or worsen, return to the Emergency Department. Hospital Diagnoses: #SBO likely secondary to adhesions, - resolved #History of abdominal surgeries #Starvation ketosis #Lactic acidosis?resolved #Polycythemia #Hypertension #Hyperlipidemia Disposition: safe discharge to home Patient plan of care was discussed with the resident, Dr. Flores, and attending physician, Dr. Washington. Karla Hightower, PGY-1 Time Spent with Patient Time attestation: Total time spent providing and/or coordinating discharge services: At least 30 minutes of care coordination Time spent: Greater than 30 minutes Home Health Home Health Referral Orders: Physical Exam General: Awake and in no acute distress. Conversational and non-toxic appearing. HEENT: Normocephalic, atraumatic, mucous membranes moist. Heart: Regular rate and rhythm, normal S1 and S2, no murmurs. Lungs: Clear to auscultation with no wheezing or crackles. Abdomen: Soft, mildly distended, positive bowel sounds. Tenderness in RUQ and RLQ on palpation. No guarding or rebound tenderness. Surgical scars and stretch cardenas present. Neurologic: Alert and oriented x3, no gross neurological deficit, and patient able to move all 4 extremities. Extremities: No edema. Skin: No rash or ecchymoses. Exam Vital Signs Temp Pulse Resp BP Pulse Ox O2 Del Method O2 Flow Rate 97.6 F 90 16 118/74 92 L Room Air 2 01/06/25 08:00 01/06/25 08:27 01/06/25 08:00 01/06/25 08:27 01/06/25 08:00 01/06/25 08:00 01/06/25 04:00 Discharge Plan Plan Patient Disposition: HOME (Self Care) Care Plan Goals: Follow up with Primary care physician with labs within 3-5 days of discharge. Recommend to take laxatives to help with constipation. Please followup with General surgery Dr Hastings outpatient within 2 weeks of discharge form hospital. Please take Benefiber to help with bowel movement, you can buy this over the counter. If symptoms persist or worsen, return to the Emergency Department. Prescriptions/Referrals Prescriptions/Med Rec: New sennosides [Senna Lax] 8.6 mg tablet 8.6 mg PO BID PRN (Reason: constipation) Qty: 30 0RF Continued lisinopril 20 mg tablet 20 mg PO DAILY Patient Comments: TOME ELSIE TABLETA TODOS LOS D atorvastatin 20 mg tablet 20 mg PO DAILY Patient Comments: TOME 1 TABLETA POR V A ORAL TODOS LOS D Referrals: Juan Alberto Castellanos PA-C [Primary Care Provider] - Patient/Caregiver Discharge Instructions Education Materials: Small Bowel Obstruction Print Language: German Stand Alone Forms: [place] Award Info., Patient Portal Info Letter Discharge Order Discharge Orders: Discharge (Routine); Ordered 01/06/25 Ordered By: Janie Kraft Quality Discharge Quality Measures VTE prophylaxis
--- NOTE | 2025-01-06 12:39 | PC.SS ---
SS met with patient regarding his d/c plan. Pt is alert/oriented. Pt was admitted for Small Bowel Obstruction. Pt confirmed demographic and contact information is correct on facesheet. Pt resides alone. Pt ambulates independently without assistance or DME. Pt is ok with all ADLs. Patient?s pharmacy of choice is [facility] on [address]. Pt named his sister in law, Luci Garcia, phone# [phone] medical decision maker if his is unable. Patient?s choice is to return home upon d/c. Pt states he followed up with PCP on Saturday. Patient's friend, Yvette will provide transportation D/C plan: Return home Next of Kin: Luci Garcia, sister in law, phone# [phone] PCP: Juan Alberto Castellanos from [facility] on [facility] Address: Correct on facesheet
[2025-01-06] MEDS: ACETAMINOPHEN 500 MG TABLET PO (12:47)
== END 2025-01-06 12:58 | disposition home or self-care (01) | DRG 247 ==
LOC: SERX 09:11 → SERHOLD 09:23 → S3SX 10:48
PROVIDERS: Admitting Provider Internal Medicine; Emergency Provider Student in an Organized Health Care Education/Training Program; PCP Physician Assistant; Visit Provider Internal Medicine
DX: K56.50 Intestinal adhesions [bands], unspecified as to partial versus complete obstruction (principal); E87.20 Acidosis, unspecified; D75.1 Secondary polycythemia; E86.0 Dehydration; E88.89 Other specified metabolic disorders; I10 Essential (primary) hypertension; E78.5 Hyperlipidemia, unspecified; I25.2 Old myocardial infarction; Z87.19 Personal history of other diseases of the digestive system; Z90.49 Acquired absence of other specified parts of digestive tract; Z98.890 Other specified postprocedural states; Z79.899 Other long term (current) drug therapy
CPT/HCPCS: 36415; 74018; 74176; 74250; 80053; 80307; 81001; 83605; 83690; 83735; 83880; 84100; 85025; 85610; 85730; 93005; 94762; 96361; 96374; 96375; J1171; J1885; J2270; J2405; J2470; J7120; Q9963; A9270